=== PATIENT | male | born 1975 | race Caucasian/White ===

== ENCOUNTER → 2019-04-10 09:50 | Outpatient (BNVA) | payer MEDICAID, SELFPAY | PROVIDERS: Family Provider Family Medicine; PCP Family Medicine; Visit Provider Nurse Practitioner | DX: F25.1 Schizoaffective disorder, depressive type (principal) | CPT/HCPCS: 99213 ==

== ENCOUNTER → 2019-05-08 12:57 | Outpatient (BNVA) | payer MEDICAID, SELFPAY | PROVIDERS: Family Provider Family Medicine; PCP Family Medicine; Visit Provider Nurse Practitioner | DX: F25.1 Schizoaffective disorder, depressive type (principal) | CPT/HCPCS: 96372; 99213 ==

== ENCOUNTER 2019-05-20 12:21 | Day surgery (SDC) | payer MEDICAID, SELFPAY ==
[2019-05-17 17:46] VITALS: BMI 31.8
[2019-05-20] VITALS (15 sets, daily range): BP systolic 113–169; BP diastolic 68–90; PULSE 60–80; RESP 12–20; TEMP 36.3–36.6; O2SAT 95–100
--- NOTE | 2019-05-20 12:29 | W.PM.OPSUD ---
Surgery/Procedure H&P Update DATE OF PROCEDURE: May 20, 2019 DATE H&P PERFORMED: 05/13/19 H&P UPDATE INFORMATION: I have reviewed H&P completed within last 30 days, I have examined patient prior to procedure and No changes to prior documentation PREOP DIAGNOSIS: Symptomatic umbilical hernia PRIMARY INDICATION FOR PROCEDURE: The same PLANNED PROCEDURE: Operation Date: 05/20/19 13:20 Proposed Procedures p OPEN UMBILICAL HERNIA REPAIR WITH MESH PLACEMENT 46488/K42.9(Not Applicable) - Osman Gutiérrez MD
[2019-05-20 12:39] LABS: Glucose Point of Care 127 mg/dL (70-110)
[2019-05-20] MEDS: sodium chloride 0.9% 1,000 ML 30 ML IV (12:41)
--- NOTE | 2019-05-20 12:45 | ANES.PREANE2 ---
Pre-Anesthetic Assessment Pre-Anesthetic Assessment: Height/Weight: Height 1.78 m Weight 100.698 kg Temp Pulse Resp BP Pulse Ox 97.3 F L 80 16 169/90 96 05/20/19 12:28 05/20/19 12:28 05/20/19 12:28 05/20/19 12:28 05/20/19 12:28 Preop Diagnosis: Symptomatic umbilical hernia Proposed Procedure: Operation Date: 05/20/19 13:20 Proposed Procedures p OPEN UMBILICAL HERNIA REPAIR WITH MESH PLACEMENT 43424/K42.9(Not Applicable) - Osman Gutiérrez MD Familial anesthetic complications: None Was Beta Fei taken within 24 hours: N/A Last intake: Intake black coffee at 0600 Last Liquid Date 05/20/19 Last Liquid Time 06:00 Last Solid Date 05/19/19 Last Solid Time 00:00 Social: Social History: Tobacco (1 ppd) and No alcohol Exam: Pre-Anes Outpt Exam: alert, oriented x 3, clear to auscultation bilaterally and regular rate & rhythm Airway: Cervical ROM: WNL and Other (pinched nerve) MP: 3 Dentition: False Pulmonary: Pulmonary: COPD and Sleep apnea (does not wear cpap) CV/HEM: CV/HEM: Arrythmia (heart beat skips) and HTN : : None reported Hepatic: Hepatic: None reported GI: GI: None reported Metabolic: Metabolic: DM Musc/skel: Musc/skel: OA/DJD Neuropsych: Neuropsych: None reported Anesthetic Plan: ASA status: 2 Anesthesia: General Risk of > 500 ml blood loss (7ml/kg in children): No Meds/Allergies Current Medications: Current Medications Generic Name Dose Route Start Last Admin Trade Name Freq PRN Reason Stop Dose Admin Sodium Chloride 1,000 mls @ 30 ml s/hr 05/20/19 09:00 05/20/19 12:41 Sodium Chloride 0.9% IV 05/21/19 08:59 30 mls/hr .Q24H ALIYA Administration PFSH Anesthesia PFSH: Social History Smoking and tobacco status: current every day smoker cigarettes Packs smoked per day: 1 Smoking risk assessment/counseling performed?: Yes Tobacco counseling given: counseling >3 minutes Data Anesthesia Other Labs: Laboratory Results - last 48 hr 05/20/19 12:36 POC Glucose 127 Cardiac Studies: No Data to Display
[2019-05-20] MEDS: lidocaine 2% INJ 20 mL INJECTION (13:09)
--- NOTE | 2019-05-20 13:56 | P.OP_ITS ---
Operative Report Date of procedure: May 20, 2019 Pre-op Diagnosis: Symptomatic umbilical hernia Post-op diagnosis: same (Fascial defect less than 1 inch in diameter) Procedure Done: Open primary repair of umbilical hernia Specimens removed/disposition: Umbilical hernia sac and content Surgeon: Osman Gutiérrez Transportation Engineering Technician: Surgical milana Cohen Circulating nurse Radha Anesthesia: General (vending enterprises supervisor Astrid) Estimated blood loss (mL): 5 Complications: No immediate complications Condition: stable Disposition: same day Brief History: This is a pleasant 43 years old gentleman referred to my office with symptomatic umbilical hernia, patient has been having some issues with the hernia in the form of abdominal discomfort and has been interfering with his daily life activity, after further evaluation and obtaining history and physical examination, I did group therapy counselor the patient for open umbilical hernia repair with possible mesh placement Patient agreed to proceed and informed consent per chart Procedure: Patient was identified in holding area and the site of the hernia was marked by me ,Patient was brought then to the operating room, general endotracheal anesthesia was administered by the anesthesia provider.prophylactic IV antibiotics were given per protocol Timeout was done verifying the patient's name/date of /planned procedure and destination after the procedure, all were in agreement. SCDs confirmed to be functioning, preoperative antibiotics administered per protocol, and beta jhonny protocol was confirmed. Prep and drape of the abdomen was done under the usual sterile technique. I started by infraumbilical skin incision, I was able to identify the umbilical hernia after dissection, which showed after opening the hernia sac of viable omentum yet adherent to the sac, that was freed and excised and hemostat was applied and transfixing 2-0 silk was placed, tissues of the hernial sac and omental contents were sent for pathology. At that point the fascial defect is about inch in diameter, after freeing all the adhesions, under direct visualization I was able to use #1 PDS to repair the defect primarily Under direct visualizetion as an interrupted horizontal mattress sutures, irrigation of the wound was then achieved and hemostasis. 2-0 Vicryl was used to attach the umbilicus to the underlying fascia, followed by deep dermal interrupted stitches, 4-0 Monocryl was used for subcuticular closure of the skin incision. Lidocaine 2% was used for local infiltration to help postoperative pain Surgical Glue was then applied.Followed by dressing and abdominal binder Counts of sponges,[place] and instruments were completed at the end of the procedure Patient tolerated the procedure well and was taken to the recovery area in stable condition I was present for the whole entire procedure
[2019-05-20] MEDS: fentaNYL 50 mcg/mL INJ 2mL IVP ×2 (14:15→14:20)
[2019-05-20] MEDS: morphine 4 mg/mL SDV 1 mL 2 MG IVP ×2 (14:21→14:23)
--- NOTE | 2019-05-20 14:26 | SUR.PHASEI ---
1412- ORAL AIRWAY OUT, SIMPLE MASK AT 6LPM, SAT 99%
[2019-05-20] MEDS: oxyCODONE-APAP 5-325 mg Tablet 1 TAB PO (14:40)
--- NOTE | 2019-05-20 14:46 | SUR.PHASEI ---
1434- TRANSFERRED PATIENT FROM PACU TO OPS VIA GURNEY. RESP ARE EVEN AND NONLABORED. SAT 98% WITH 2L/NC. HE IS AWAKE AND ALERT, DROWSY. DRESSING TO ABDOMEN IS DRY AND INTACT. HE REPORTS ABDOMINAL PAIN IS PRESENT BUT IMPROVING. DENIES NAUSEA. ANESTHESIA AWARE OF LAST PAIN MEDICATION ADMINISTRATION.
--- NOTE | 2019-05-20 15:37 | SUR.PHASEII ---
1500 CHRISTIAN CALLED AND STATED SHE HAS HER DAUGHTER AT PEDIATRIC CLINIC AND WILL BE HERE SOON POSSIBLE,INFORMED PT AND VERBALIZED UNDERSTANDING
--- NOTE | 2019-05-20 16:07 | SUR.PHASEII ---
0931 D/C PAPERS SIGNED AND VERBALIZED UNDERSTANDING,AWAITING FOR TO COME BACK TO STRAIGHTENING PRESS OPERATOR HELPER PATIENT
== END 2019-05-20 16:45 | disposition home or self-care (01) ==
PROVIDERS: Family Provider Family Medicine; Visit Provider Surgery
PROC: (CPT 49585; principal; 2019-05-20 12:30)
DX: K42.9 Umbilical hernia without obstruction or gangrene (principal); J44.9 Chronic obstructive pulmonary disease, unspecified; G47.30 Sleep apnea, unspecified; I10 Essential (primary) hypertension; E11.9 Type 2 diabetes mellitus without complications; M19.90 Unspecified osteoarthritis, unspecified site; F17.210 Nicotine dependence, cigarettes, uncomplicated; Z79.84 Long term (current) use of oral hypoglycemic drugs; Z82.49 Family history of ischemic heart disease and other diseases of the circulatory system
CPT/HCPCS: 49585; 12345; 36416; 82962; 88302; 96365; J0131; J0690; J2001; J2250; J2270; J2704; J2710; J3010; J3490; J7030

== ENCOUNTER → 2019-06-05 14:21 | Outpatient (BNVA) | payer MEDICAID, SELFPAY | PROVIDERS: Family Provider Family Medicine; Visit Provider Nurse Practitioner | DX: F25.1 Schizoaffective disorder, depressive type (principal) | CPT/HCPCS: 99213 ==

== ENCOUNTER 2019-06-27 17:21 | Emergency (ER) | payer MEDICAID, SELFPAY ==
[2019-06-27 17:42] VITALS: BP 131/89; PULSE 90; RESP 18; TEMP 36.6; O2SAT 95; BMI 32.1
--- NOTE | 2019-06-27 18:03 | XR_ITS ---
WS: [id number] HAND LEFT TECHNIQUE: 3 views of the left hand CLINICAL INFORMATION: trauma COMPARISON: None. FINDINGS: Soft tissue edema. Fifth metacarpal appears normal. Normal MCP joint. Metacarpal heads are normal in appearance. Normal PIP and DIP joints. No evidence of acute fracture or dislocation. Radiocarpal joint: Normal. Carpal bones: Normal. XR/XR hand LT min 3V* 70401 IMPRESSION: Soft tissue edema. Fifth metacarpal appears normal. No acute fractures.
--- NOTE | 2019-06-27 18:04 | ED_ITS ---
HPI - Extremity Injury (Upper) General: Chief Complaint: Extremity Injury, Upper Stated Complaint: LEFT HAND PAIN Time Seen by Provider: 06/27/19 18:00 Source: patient Mode of arrival: ambulatory Limitations: no limitations History of Present Illness: HPI narrative: reports he punched a refrigerator last night complaint: injury to: left Onset (ago): day(s) Other Extremity Injury: Left: hand Other injuries: none Place: home Severity: moderate Relieving factors: none Exacerbating factors: movement of extremity Context: direct blow Associated symptoms: Reports no associated symptoms Review of Systems Musc: Reports: extremity pain (L hand) and extremity swelling (L hand) Neuro: Denies: numbness in extremities or changes in sensation PFSH ED PFSH: Social History Smoking and tobacco status: current every day smoker cigarettes Packs smoked per day: 1 Smoking risk assessment/counseling performed?: Yes Tobacco counseling given: counseling >3 minutes Physical Exam Const: COMMON NORMALS: no apparent distress, oriented x3, no limitations and alert NUTRITIONAL APPEARANCE: obese Extremity: OTHER: tenderness and swelling to dorsum of L hand specifically over 4-5 MCP joints; maintains ROM of digits; sensory intact; cap refill intact Neuro: COMMON NORMALS: oriented x3 SENSORIUM/ORIENTATION: Yes alert Skin: COMMON NORMALS: no rashes or lesions noted GENERAL SKIN EXAM: no rashes or lesions noted OTHER: no abrasions/lacerations noted Course Vital Signs: Vital signs: Vital Signs Temperature 97.9 F 06/27/19 17:42 Pulse Rate 90 06/27/19 17:42 Respiratory Rate 18 06/27/19 17:42 Blood Pressure 131/89 06/27/19 17:42 Pulse Oximetry 95 06/27/19 17:42 MDM - Extremity Injury (Upper) Imaging Data^: L hand XR: Radiologist's impression: [address] [address] XRay Report Signed Patient: Luzma Davison Unit #: [id number] : 06/11/1931 Age/Sex: 88 / F ADM Date: 06/26/19 Loc: ER Room/Bed: Attending Dr: Ordering Provider/Ordering MD: Alice Perez Date of Service: 06/26/19 Procedure(s): XR chest 1V portable 59531 Accession Number(s): [id number] Report Number: [id number] WS: [id number] CHEST XRAY TECHNIQUE: Portable chest. CLINICAL INFORMATION: cough/congestion COMPARISON: July 30, 2015 FINDINGS: Heart: Cardiomegaly. Aortic calcification. Aortic root graft Lungs: Moderate chronic emphysematous changes. No acute pulmonary infiltrates. No focal pneumonia. Bones: Normal visualized bony structures. XR/XR chest 1V portable [id number] IMPRESSION: No acute chest findings Dictated By: Christian Davis MD Signed By: Christian Davis MD Signed Date/Time: 06/27/19912 DD/ 3 Discharge Plan Discharge Patient Disposition: Home, Self-Care Clinical Impression: Contusion of hand, left Qualifiers: Encounter type: initial encounter Qualified Code(s): S60.222A - Contusion of left hand, initial encounter Condition: Stable Prescriptions: No Action losartan 25 mg tablet 25 mg PO DAILY RF: 0 metformin 500 mg tablet 500 mg PO DAILY RF: 0 omeprazole 20 mg capsule,delayed release(DR/EC) 20 mg PO DAILY RF: 0 Invega Sustenna 234 mg/1.5 mL syringe 234 mg IM Q30D Qty: 1.5 RF: 2 diazepam [Valium] 5 mg tablet 5 mg PO DAILY PRN (Reason: anxiety) Qty: 30 RF: 2 testosterone undecanoate 750 mg/3 mL (250 mg/mL) Solution See Rx Instructions .ROUTE .COMPLEX RF: 0 Invega 3 mg tablet extended release 24hr 3 mg PO DAILY RF: 0 Discharge Orders: Discharge Order (Routine); Ordered 06/27/19 Ordered By: Alice Perez Referrals: Rebekah Rojas DO [Family Provider] - Discharge Diet: Usual diet Discharge Activity: Increase activity as tolerated Patient Instructions: Contusion in Adults (ED), RICE Therapy (ED) Coding Level of Care Code ED Linux [employer] Systems Administrator for Chg Fwd Exam Expanded Problem Focused
--- NOTE | 2019-06-27 19:06 | PC.NURSE ---
report received from SAMANTA Soler and care transferred to SAMANTA Sams
== END 2019-06-27 19:10 | disposition home or self-care (01) ==
PROVIDERS: Emergency Provider Physician Assistant; Family Provider Family Medicine
DX: S60.222A Contusion of left hand, initial encounter (principal); W22.8XXA Striking against or struck by other objects, initial encounter; F17.200 Nicotine dependence, unspecified, uncomplicated; F25.1 Schizoaffective disorder, depressive type
CPT/HCPCS: 12345; 73130; 99281; 99282

== ENCOUNTER → 2019-07-03 08:43 | Outpatient (BNVA) | payer MEDICAID, SELFPAY | PROVIDERS: Family Provider Family Medicine; Visit Provider Nurse Practitioner | DX: F25.1 Schizoaffective disorder, depressive type (principal) | CPT/HCPCS: 99213 ==

== ENCOUNTER → 2019-08-02 07:44 | Outpatient (BNVA) | payer MEDICAID, SELFPAY | PROVIDERS: Family Provider Family Medicine; Visit Provider Nurse Practitioner | DX: F25.1 Schizoaffective disorder, depressive type (principal) | CPT/HCPCS: 99213 ==

== ENCOUNTER → 2019-08-28 07:57 | Outpatient (BNVA) | payer MEDICAID, SELFPAY | PROVIDERS: Family Provider Family Medicine; Visit Provider Nurse Practitioner | DX: F25.1 Schizoaffective disorder, depressive type (principal); F41.1 Generalized anxiety disorder; F43.12 Post-traumatic stress disorder, chronic | CPT/HCPCS: 99213 ==

== ENCOUNTER → 2019-09-27 12:51 | Outpatient (BNVA) | payer MEDICAID, SELFPAY | PROVIDERS: Family Provider Family Medicine; Visit Provider Nurse Practitioner | DX: F25.1 Schizoaffective disorder, depressive type (principal); F33.42 Major depressive disorder, recurrent, in full remission | CPT/HCPCS: 99214 ==

== ENCOUNTER 2019-10-22 20:55 | Emergency (ER) | payer MEDICAID, SELFPAY ==
[2019-10-22 21:18] VITALS: BP 141/80; PULSE 68; RESP 18; TEMP 36.6; O2SAT 97; BMI 33.0
[2019-10-22 22:41] LABS: Basophils # 0.1 10^3/uL (0.0-0.1); Basophils % 0.9 %; Eosinophils # 0.4 10^3/uL (0.0-0.8); Eosinophils % 3.6 %; Hematocrit 44.7 % (42.0-52.0); Hemoglobin 14.7 g/dL (11.7-16.6); Lymphocytes # 3.1 10^3/uL (0.8-4.8); Lymphocytes % 31.4 %; Mean Corpuscular HGB Conc 32.9 g/dL (30.0-36.0); Mean Corpuscular Hemoglobin 28.5 pg (28.0-34.0); Mean Corpuscular Volume 86.6 fL (80-94); Mean Platelet Volume 10.8 fL (7.4-10.4); Monocytes # 1.3 10^3/uL (0.2-0.9); Monocytes % 12.9 %; Neutrophils # 5.09 10^3/uL (1.8-7.7); Neutrophils % 50.8 %; Nucleated Red Blood Cells % 0 %; Platelet Count 364 10^3/cmm (130-400); Red Blood Count 5.16 10^6/uL (4.1-5.3); Red Cell Distribution Width 12.9 % (12.1-15.1)
--- NOTE | 2019-10-22 22:42 | W.ED.GENADLT ---
HPI - General Adult General: Chief complaint: General Medical Stated complaint: diabetic/feet problems Time Seen by Provider: 10/22/19 21:59 History of Present Illness: HPI narrative: Patient is a 43-year-old male who comes to the ED with rash on bottom of feet bilaterally and lower back pain. The rash on the bottom of his feet started yesterday. Patient says he was washing his feet in the tub and skin started peeling off. He reports that the skin there is little tender. Lower back pain started 3 to 4 days ago when patient thought he might be getting a kidney infection. He went to his PCP 2 days ago and they tested his urine and said he did not have a UTI. He describes pain is in the left lumbar region and he denies any pain radiating down his lower extremities. Back pain worsens with movement. Patient also endorses having some mild dysuria but denies any blood in the urine. Denies fever, chills, abdominal pain, nausea/vomiting, bowel symptoms, acute trauma or injury causing back pain. Associated symptoms: Reports rash (Skin peeling of bottom of both right and left feet.); Deny chest pain, dyspnea, headache(s), nausea, palpitations or vomiting Review of Systems Const: Denies: fever(s), chills or fatigue Eyes: Denies: change in vision or eye discomfort ENMT: Denies: throat pain, odynophagia, nasal discharge or nasal congestion Card: Denies: chest pain, palpitations, edema, swelling of feet/ankles, dyspnea on exertion or orthopnea Resp: Denies: dyspnea, productive cough or non-productive cough GI: Denies: abdominal pain, nausea, vomiting, diarrhea, constipation or hematochezia : Reports: dysuria (Mild pain when urinating.); Denies: flank pain, difficulty urinating or hematuria Musc: Reports: back pain; Denies: neck pain or extremity swelling Skin/Breast: Reports: rash (Skin peeling of bottom of both right and left feet.); Denies: new lesions Neuro: Denies: headache(s), numbness in extremities or weakness in extremities [facility] ED PFSH: Medical History Hernia Schizoaffective disorder, depressive type Surgical History History of surgery on right wrist Umbilical hernia Family History Mother CAD (coronary artery disease) Hypertension Denies family history of Anesthesia complication Bleeding disorder Social History Smoking and tobacco status: current every day smoker cigarettes Packs smoked per day: 1 Smoking risk assessment/counseling performed?: Yes Tobacco counseling given: counseling >3 minutes Physical Exam Const: COMMON NORMALS: no acute distress, patient oriented x3 and alert GENERAL APPEARANCE: cooperative and comfortable HENMT: COMMON NORMALS: normocephalic HEAD & SCALP: normocephalic MOUTH: Normal oral and palatal mucosa present THROAT: posterior oropharynx normal and uvula midline Eye: COMMON NORMALS: Equal, round and reactive pupils present PUPIL: Yes Equal, round and reactive pupils present Neck/C-Spine: COMMON NORMALS: supple GENERAL: Yes normal visual inspection Resp: COMMON NORMALS: normal respiratory effort, No retractions, No use of accessory muscles and clear to auscultation bilaterally AUSCULTATION: clear to auscultation bilaterally Cardio: COMMON NORMALS: regular rate, regular rhythm, S1 normal heart sound present, S2 normal heart sound present, No gallops present (Cardio), No clicks present (Cardio), No murmurs present (Cardio) and Peripheral pulses 2+ throughout RATE: regular rate RHYTHM: regular rhythm HEART SOUNDS: S1 normal heart sound present and S2 normal heart sound present PERIPHERAL PULSES: Peripheral pulses 2+ throughout GI: COMMON NORMALS: Normal to inspection, nondistended, normoactive bowel sounds present, Soft to palpation, non-tender and no masses PALPATION: Yes Soft to palpation : COMMON NORMALS: Yes no CVA tenderness BLADDER/KIDNEY EXAM: Yes no CVA tenderness Back/Pelvis: COMMON NORMALS: no CVA tenderness LUMBAR SPINE/LOWER BACK: No lumbar spinal tenderness and Yes paraspinal muscle tenderness Lumbar paraspinal muscle tenderness: left Extremity: COMMON NORMALS: no pedal edema NARRATIVE EXTREMITY EXAM: Patient has a layer of skin that peeled off the bottom of his feet bilaterally. GENERAL: Yes normal exam except as noted Neuro: COMMON NORMALS: patient oriented x3 and moves all extremities SENSORIUM/ORIENTATION: Yes alert Skin: NARRATIVE SKIN EXAM: Plantar aspect of both right and left feet?top layer of no erythema, warmth or drainage seen around rash. No concern for infection. Course Vital Signs: Vital signs: Vital Signs Temperature 97.9 F 10/22/19 21:18 Pulse Rate 68 10/22/19 21:18 Respiratory Rate 18 10/22/19 21:18 Blood Pressure 141/80 10/22/19 21:18 Pulse Oximetry 97 10/22/19 21:18 MDM - General Adult MDM Narrative: Medical decision making narrative: Patient is a 43-year-old male comes to the ED with nontraumatic lower back pain. Physical exam findings show lumbar paracervical muscle tenderness that is localized. No pain radiating down the legs. Patient also has some superficial peeling of skin on the bottom of both feet bilaterally. No signs of infection seen on exam. CBC, CMP and UA were unremarkable. Patient diagnosed with lower back pain and given a dose of Toradol and Norflex while here in the ED. Patient was sent home with a prescription for Robaxin and told to take [id number] Tylenol for pain. Follow-up with PCP in 7 to 10 days for reevaluation. Return to ED precautions given. Patient understood and agreed with plan. Lab Data: Attestation: I reviewed the patient's lab results. Labs: Lab Results 10/22/19 10/22/19 10/22/19 Range/Units 22:25 22:25 22:45 WBC 10.0 (4.0-10.0) 10^3/ uL RBC 5.16 (4.1-5.3) 10^6/u L Hgb 14.7 (11.7-16.6) g/dL Hct 44.7 (42.0-52.0) % MCV 86.6 (80-94) fL MCH 28.5 (28.0-34.0) pg MCHC 32.9 (30.0-36.0) g/dL RDW 12.9 (12.1-15.1) % Plt Count 364 (130-400) 10^3/c mm MPV 10.8 H (7.4-10.4) fL Neut % (Auto) 50.8 % Lymph % (Auto) 31.4 % Dickson % (Auto) 12.9 % Eos % (Auto) 3.6 % Baso % (Auto) 0.9 % Neut # (Auto) 5.09 (1.8-7.7) 10^3/u L Lymph # (Auto) 3.1 (0.8-4.8) 10^3/u L Dickson # (Auto) 1.3 H (0.2-0.9) 10^3/u L Eos # (Auto) 0.4 (0.0-0.8) 10^3/u L Baso # (Auto) 0.1 (0.0-0.1) 10^3/u L Nucleated RBC % (a uto) 0 % Nucleated RBCs # 0.0 /100WBC Sodium 136 (136-145) mmol/L Potassium 4.3 (3.5-5.1) mmol/L Chloride 98 (98-107) mmol/L Carbon Dioxide 29 (22-29) mmol/L Anion Gap 13.3 (5-19) BUN 8 (6-20) mg/dL Creatinine 0.9 (0.7-1.2) mg/dL GFR Calculation 91.3 (90-130) mL/min Glucose 102 (65-115) mg/dL Calculated Osmolal ity 278 L (285-295) mOsm/k g Calcium 8.7 (8.5-10.5) mg/dL Total Bilirubin 0.2 (0.15-1.2) mg/dL AST 70 H (0-40) U/L ALT 51 H (0-41) U/L Alkaline Phosphata se 102 (40-130) IU/L Total Protein 7.0 (6.6-8.7) g/dL Albumin 3.9 (3.5-5.2) g/dL Globulin 3.1 (1.3-4.6) g/dL Urine Color Dauphin (Yellow) Urine Appearance Clear (CLEAR) Urine pH TNP Ur Specific Gravit y TNP Urine Protein TNP Urine Glucose (UA) TNP Urine Ketones TNP Urine Blood TNP Urine Nitrate TNP Urine Bilirubin TNP Urine Urobilinogen TNP Ur Leukocyte Pamela ase TNP Urine RBC Rare (0-2) /hpf Urine WBC Rare (0-5) /hpf Ur Squamous Epith Cells 0-4 H (0-5) Amorphous Sediment Not Reportable Urine Bacteria Trace (NONE) Discharge Plan Discharge Patient Disposition: Home Clinical Impression: Lumbar back pain, Peeling skin Condition: Stable Prescriptions: New Robaxin-750 750 mg tablet 750 mg PO Q8H Qty: 20 RF: 0 No Action losartan 25 mg tablet 25 mg PO DAILY RF: 0 metformin 500 mg tablet 500 mg PO DAILY RF: 0 omeprazole 20 mg capsule,delayed release(DR/EC) 20 mg PO DAILY RF: 0 Invega Sustenna 234 mg/1.5 mL syringe 234 mg IM Q30D Qty: 1.5 RF: 2 Invega 3 mg tablet extended release 24hr 3 mg PO DAILY Qty: 7 RF: 2 diazepam [Valium] 5 mg tablet 5 mg PO BID PRN (Reason: anxiety) Qty: 60 RF: 0 benztropine 1 mg tablet 1 mg PO BID PRN (Reason: EPS) Qty: 60 RF: 0 testosterone undecanoate 750 mg/3 mL (250 mg/mL) Solution See Rx Instructions .ROUTE .COMPLEX RF: 0 Discharge Orders: Discharge Order (Routine); Ordered 10/22/19 Ordered By: Roney Arceo Referrals: Rebekah Rojas DO [Primary Care Provider] - Discharge Diet: Regular Discharge Activity: Increase activity as tolerated Patient Instructions: Low Back Strain (ED), Acute Low Back Pain (ED) Activity Restrictions/Additional Instructions: Follow-up with medical provider as directed in 7-10 days. Take medications as prescribed. Take [id number] Tylenol for pain. Continue with a prescription for muscle relaxer. Take the muscle relaxer at night before bed because it can cause drowsiness. If you take muscle relaxer during the day use with caution due to potential drowsiness. Apply cold pack or heat to lower back to help with symptoms. Stretch lower back out daily. Watch bottom of the feet rash for any signs of potential infection such as redness, warmth, swelling or drainage. If you start developing these symptoms around rash on feet return to ED/PCP to be reevaluated. Return to the ER or your medical provider if condition worsens. Please read and understand discharge instructions. If any questions, please ask. Discharge Date/Time: 10/22/19 23:57 Coding Level of Care Code ED Claims Adjuster Supervisor for Dai Fwd Exam Comprehensive
[2019-10-22 22:57] LABS: Alanine Aminotransferase 51 U/L (0-41); Albumin Level 3.9 g/dL (3.5-5.2); Alkaline Phosphatase 102 IU/L (40-130); Anion Gap 13.3 (5-19); Aspartate Amino Transferase 70 U/L (0-40); Blood Urea Nitrogen 8 mg/dL (6-20); Calcium 8.7 mg/dL (8.5-10.5); Carbon Dioxide 29 mmol/L (22-29); Chloride 98 mmol/L (98-107); Globulin 3.1 g/dL (1.3-4.6); Glomerular Filtration Rate 91.3 mL/min (90-130); Glucose 102 mg/dL (65-115); Osmolality Calculated 278 mOsm/kg (285-295); Potassium 4.3 mmol/L (3.5-5.1); Sodium 136 mmol/L (136-145); Total Bilirubin 0.2 mg/dL (0.15-1.2)
[2019-10-22 23:15] LABS: Urine Appearance Clear (CLEAR); Urine Color Orange (Yellow)
[2019-10-22 23:16] LABS: Add Urine Microscopic? YES; Bacteria Urine TRACE; RBC Urine RARE /hpf (0-2); Squamous Epithelial Cell Urine 0-4 (0-5); WBC Urine RARE /hpf (0-5)
[2019-10-22] MEDS: orphenadrine 30 mg/mL Inj 2 mL 60 MG IM (23:29)
[2019-10-22] MEDS: ketorolac 60 mg/2 mL INJ IM (23:29)
== END 2019-10-22 23:57 | disposition home or self-care (01) ==
PROVIDERS: Emergency Provider Physician Assistant; PCP Family Medicine
DX: M54.5 Low back pain (principal); L98.9 Disorder of the skin and subcutaneous tissue, unspecified; F17.210 Nicotine dependence, cigarettes, uncomplicated
CPT/HCPCS: 12345; 36415; 80053; 81001; 85025; 87040; 96372; 99281; 99283; J1885; J2360

== ENCOUNTER → 2019-10-25 09:20 | Outpatient (BNVA) | payer MEDICAID, SELFPAY | PROVIDERS: PCP Family Medicine; Visit Provider Nurse Practitioner | DX: F25.1 Schizoaffective disorder, depressive type (principal) | CPT/HCPCS: 96372; 99214 ==

== ENCOUNTER → 2019-10-28 10:01 | Outpatient (BNVA) | payer MEDICAID, SELFPAY | PROVIDERS: PCP Family Medicine; Visit Provider Family Medicine | DX: I10 Essential (primary) hypertension (principal); E11.9 Type 2 diabetes mellitus without complications; R79.89 Other specified abnormal findings of blood chemistry; M54.5 Low back pain | CPT/HCPCS: 80053; 80061; 82043; 83036; 84403; 85025 ==

== ENCOUNTER → 2019-11-22 08:44 | Outpatient (BNVA) | payer MEDICAID, SELFPAY | PROVIDERS: PCP Family Medicine; Visit Provider Nurse Practitioner | DX: F25.1 Schizoaffective disorder, depressive type (principal); Z79.899 Other long term (current) drug therapy | CPT/HCPCS: 96372; 99213 ==

== ENCOUNTER → 2019-12-20 08:13 | Outpatient (BNVA) | payer MEDICAID, SELFPAY | PROVIDERS: PCP Family Medicine; Visit Provider Nurse Practitioner | DX: F25.1 Schizoaffective disorder, depressive type (principal) | CPT/HCPCS: 96372; 99213 ==

== ENCOUNTER → 2020-01-24 12:09 | Outpatient (BNVA) | payer MEDICAID, SELFPAY | PROVIDERS: PCP Family Medicine; Visit Provider Nurse Practitioner | DX: F25.1 Schizoaffective disorder, depressive type (principal) | CPT/HCPCS: 96372; 99213 ==

== ENCOUNTER → 2020-02-05 15:06 | Outpatient (BNVA) | payer MEDICAID, SELFPAY | PROVIDERS: PCP Family Medicine; Visit Provider Family Medicine | DX: Z20.2 Contact with and (suspected) exposure to infections with a predominantly sexual mode of transmission (principal) | CPT/HCPCS: 80074; 86592; 87806 ==

== ENCOUNTER → 2020-02-20 12:00 | Outpatient (BNVA) | payer MEDICAID, SELFPAY | PROVIDERS: PCP Family Medicine; Visit Provider Nurse Practitioner | DX: F25.1 Schizoaffective disorder, depressive type (principal); Z79.899 Other long term (current) drug therapy | CPT/HCPCS: 80306; 99214 ==

== ENCOUNTER → 2020-03-17 08:31 | Outpatient (BNVA) | payer MEDICAID, SELFPAY | PROVIDERS: PCP Family Medicine; Visit Provider Nurse Practitioner | DX: F25.1 Schizoaffective disorder, depressive type (principal); Z79.899 Other long term (current) drug therapy | CPT/HCPCS: 96372; 99214 ==

== ENCOUNTER → 2020-04-20 11:06 | Outpatient (BNVA) | payer MEDICAID, SELFPAY | PROVIDERS: PCP Family Medicine; Visit Provider Nurse Practitioner | DX: F25.1 Schizoaffective disorder, depressive type (principal); F33.1 Major depressive disorder, recurrent, moderate; F12.20 Cannabis dependence, uncomplicated; F15.21 Other stimulant dependence, in remission | CPT/HCPCS: 96372; 99214 ==

== ENCOUNTER → 2020-05-18 11:17 | Outpatient (BNVA) | payer MEDICAID, SELFPAY | PROVIDERS: PCP Family Medicine; Visit Provider Nurse Practitioner | DX: F25.1 Schizoaffective disorder, depressive type (principal); Z79.899 Other long term (current) drug therapy | CPT/HCPCS: 96372; 99214 ==

== ENCOUNTER → 2020-06-18 11:18 | Outpatient (BNVA) | payer MEDICAID, SELFPAY | PROVIDERS: PCP Family Medicine; Visit Provider Nurse Practitioner | DX: F25.1 Schizoaffective disorder, depressive type (principal); Z79.899 Other long term (current) drug therapy; F12.20 Cannabis dependence, uncomplicated | CPT/HCPCS: 96372; 99214 ==

== ENCOUNTER → 2020-07-17 11:31 | Outpatient (BNVA) | payer MEDICAID, SELFPAY | PROVIDERS: PCP Family Medicine; Visit Provider Nurse Practitioner | DX: F25.1 Schizoaffective disorder, depressive type (principal); F33.1 Major depressive disorder, recurrent, moderate; Z79.899 Other long term (current) drug therapy; F12.20 Cannabis dependence, uncomplicated; F15.21 Other stimulant dependence, in remission | CPT/HCPCS: 96372; 99214 ==

== ENCOUNTER → 2020-08-13 14:24 | Outpatient (BNVA) | payer MEDICAID, SELFPAY | PROVIDERS: PCP Family Medicine; Visit Provider Nurse Practitioner | DX: F25.1 Schizoaffective disorder, depressive type (principal); F33.1 Major depressive disorder, recurrent, moderate; F12.20 Cannabis dependence, uncomplicated; F15.21 Other stimulant dependence, in remission | CPT/HCPCS: 96372; 99214 ==

== ENCOUNTER → 2020-09-17 14:16 | Outpatient (BNVA) | payer MEDICAID, SELFPAY | PROVIDERS: PCP Family Medicine; Visit Provider Nurse Practitioner | DX: F25.1 Schizoaffective disorder, depressive type (principal); F33.1 Major depressive disorder, recurrent, moderate; F12.20 Cannabis dependence, uncomplicated; F15.21 Other stimulant dependence, in remission | CPT/HCPCS: 96372; 99214 ==

== ENCOUNTER → 2020-10-16 07:25 | Outpatient (BNVA) | payer MEDICAID, SELFPAY | PROVIDERS: PCP Family Medicine; Visit Provider Nurse Practitioner | DX: F25.1 Schizoaffective disorder, depressive type (principal) | CPT/HCPCS: 96372; 99214 ==

== ENCOUNTER → 2020-11-19 10:05 | Outpatient (BNVA) | payer MEDICAID, SELFPAY | PROVIDERS: PCP Family Medicine; Visit Provider Nurse Practitioner | DX: F33.1 Major depressive disorder, recurrent, moderate (principal); F25.1 Schizoaffective disorder, depressive type; F12.20 Cannabis dependence, uncomplicated | CPT/HCPCS: 96372; 99214 ==

== ENCOUNTER → 2020-12-18 11:18 | Outpatient (BNVA) | payer MEDICAID, SELFPAY | PROVIDERS: PCP Family Medicine; Visit Provider Nurse Practitioner | DX: F25.1 Schizoaffective disorder, depressive type (principal); F33.1 Major depressive disorder, recurrent, moderate; F15.21 Other stimulant dependence, in remission; F12.20 Cannabis dependence, uncomplicated; F17.219 Nicotine dependence, cigarettes, with unspecified nicotine-induced disorders | CPT/HCPCS: 96372; 99214 ==

== ENCOUNTER 2020-12-29 15:46 | Emergency (ER) | payer MEDICAID, SELFPAY ==
[2020-12-29 16:01] VITALS: BP 125/83; PULSE 79; RESP 18; TEMP 36.8; O2SAT 99
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
[2020-12-29] MEDS: HYDROcodone-acetaminophen 5-325 mg Tablet 2 TAB PO (20:45)
[2020-12-29 21:39] VITALS: BP 151/71; PULSE 77; RESP 20; O2SAT 98
== END 2020-12-29 21:35 | disposition home or self-care (01) ==
PROVIDERS: Emergency Provider Emergency Medicine; PCP Family Medicine
DX: F07.81 Postconcussional syndrome (principal); S02.30XA Fracture of orbital floor, unspecified side, initial encounter for closed fracture; S02.2XXA Fracture of nasal bones, initial encounter for closed fracture; T14.8XXA Other injury of unspecified body region, initial encounter; Y09 Assault by unspecified means; I10 Essential (primary) hypertension; F17.210 Nicotine dependence, cigarettes, uncomplicated
CPT/HCPCS: 99282

== ENCOUNTER → 2021-01-27 10:23 | Outpatient (BNVA) | payer MEDICAID, SELFPAY | PROVIDERS: PCP Family Medicine; Visit Provider Nurse Practitioner | DX: F25.1 Schizoaffective disorder, depressive type (principal) | CPT/HCPCS: 96372; 99214 ==

== ENCOUNTER → 2021-02-22 13:21 | Outpatient (BNVA) | payer MEDICAID, SELFPAY | PROVIDERS: PCP Family Medicine; Visit Provider Nurse Practitioner | DX: F25.1 Schizoaffective disorder, depressive type (principal); F12.20 Cannabis dependence, uncomplicated | CPT/HCPCS: 96372; 99214 ==

== ENCOUNTER → 2021-03-22 11:47 | Outpatient (BNVA) | payer MEDICAID, SELFPAY | PROVIDERS: PCP Family Medicine; Visit Provider Nurse Practitioner | DX: F25.1 Schizoaffective disorder, depressive type (principal); F12.20 Cannabis dependence, uncomplicated | CPT/HCPCS: 96372; 99214 ==

== ENCOUNTER → 2021-04-14 10:55 | Outpatient (BNVA) | payer MEDICAID, SELFPAY | PROVIDERS: PCP Family Medicine; Visit Provider Nurse Practitioner Family | DX: E11.9 Type 2 diabetes mellitus without complications (principal) | CPT/HCPCS: 80053; 83036; 84443 ==

== ENCOUNTER → 2021-04-20 12:02 | Outpatient (BNVA) | payer MEDICAID, SELFPAY | PROVIDERS: PCP Family Medicine; Visit Provider Nurse Practitioner | DX: F12.20 Cannabis dependence, uncomplicated (principal); F25.1 Schizoaffective disorder, depressive type | CPT/HCPCS: 96372; 99214 ==

== ENCOUNTER → 2021-05-18 11:47 | Outpatient (BNVA) | payer MEDICAID, SELFPAY | PROVIDERS: PCP Family Medicine; Visit Provider Nurse Practitioner | DX: F12.20 Cannabis dependence, uncomplicated (principal); F15.20 Other stimulant dependence, uncomplicated; F11.20 Opioid dependence, uncomplicated; F25.1 Schizoaffective disorder, depressive type | CPT/HCPCS: 96372; 99215 ==

== ENCOUNTER → 2021-06-07 15:57 | Outpatient (BNVA) | payer MEDICAID, SELFPAY | PROVIDERS: PCP Family Medicine; Visit Provider Nurse Practitioner Family | DX: E23.7 Disorder of pituitary gland, unspecified (principal); R53.83 Other fatigue; I10 Essential (primary) hypertension; F25.1 Schizoaffective disorder, depressive type; Z72.0 Tobacco use; Z71.6 Tobacco abuse counseling | CPT/HCPCS: 82607; 82728; 82746; 83001; 83002; 83550; 84146; 84403 ==

== ENCOUNTER → 2021-06-18 11:05 | Outpatient (BNVA) | payer MEDICAID, SELFPAY | PROVIDERS: PCP Family Medicine; Visit Provider Nurse Practitioner | DX: F11.20 Opioid dependence, uncomplicated (principal); F15.20 Other stimulant dependence, uncomplicated; F25.1 Schizoaffective disorder, depressive type | CPT/HCPCS: 96372; 99214 ==

== ENCOUNTER 2021-12-31 16:53 | Emergency (ER) | payer MEDICAID, SELFPAY ==
--- NOTE | 2021-12-31 16:54 | XRR_ITS ---
PROCEDURE INFORMATION: Exam: XR Right Elbow Exam date and time: 12/31/2021 5:10 PM Age: 46 years old Clinical indication: Pain; Swelling; Elbow; Right; Additional info: Swelling, pain TECHNIQUE: Imaging protocol: Radiologic exam of the Right elbow. Views: 3 or more views. COMPARISON: No relevant prior studies available. FINDINGS: Bones/joints: There is a prominent enthesophyte at the olecranon at the triceps insertion which appears fractured, age indeterminate. The rest of the osseous structures are intact. Soft tissues: Soft tissue swelling superficial to the olecranon. XR/XR elbow RT min 3V* [id number] IMPRESSION: There is a prominent enthesophyte at the olecranon which appears fractured, age indeterminate. There is soft tissue swelling superficial to the olecranon. This could be secondary to the fractured enthesophyte or may reflect olecranon bursitis.
[2021-12-31 17:31] VITALS: BP 134/83; PULSE 69; RESP 18; TEMP 36.8; O2SAT 93; BMI 38.0
--- NOTE | 2021-12-31 17:53 | W.ED.EXTPRO ---
HPI - Extremity Problem General: Chief complaint: Extremity Problem,Nontraumatic Stated complaint: right elbow swelling Time Seen by Provider: 12/31/21 17:38 History of Present Illness: Patient is a 46-year-old male who comes to the ED with right elbow swelling. Symptoms started today. He denies any injury or trauma to cause swelling. He has full range of motion in right elbow but does endorse some aching pain that he rates currently a 5 out of 10. Patient does report that he had an injury several years ago where he dislocated and fractured right elbow. Associated symptoms: Deny chest pain, fever(s) or rash Review of Systems Const: Denies: fever(s), chills or fatigue Eyes: Denies: change in vision or eye discomfort ENMT: Denies: throat pain, odynophagia, nasal discharge or nasal congestion Card: Denies: chest pain, palpitations, edema, swelling of feet/ankles, dyspnea on exertion or orthopnea Resp: Denies: dyspnea, productive cough or non-productive cough GI: Denies: abdominal pain, nausea, vomiting, diarrhea, constipation or hematochezia : Denies: flank pain, difficulty urinating, dysuria or hematuria Musc: Reports: extremity pain (Right elbow pain) and extremity swelling (Right elbow swelling); Denies: neck pain or back pain Skin/Breast: Denies: rash or new lesions Neuro: Denies: headache(s), numbness in extremities or weakness in extremities [facility] ED PFSH: Medical History Benzodiazepine use agreement exists Cannabis dependence, uncomplicated Essential (primary) hypertension Hernia Major depressive disorder, recurrent, moderate On high dose antipsychotic drug therapy Opioid dependence, uncomplicated Other stimulant dependence, in remission Other stimulant dependence, uncomplicated Pituitary abnormality Prediabetes Psychiatric care Schizoaffective disorder, depressive type Surgical History History of surgery on right wrist Umbilical hernia Family History Mother CAD (coronary artery disease) Hypertension Denies family history of Anesthesia complication Bleeding disorder Social History Smoking and tobacco status: current every day smoker cigarettes Packs smoked per day: 1 Smoking risk assessment/counseling performed?: Yes Tobacco counseling given: counseling >3 minutes Physical Exam Const: COMMON NORMALS: no acute distress, patient oriented x3 and alert GENERAL APPEARANCE: cooperative and comfortable HENMT: COMMON NORMALS: normocephalic HEAD & SCALP: normocephalic MOUTH: Normal oral and palatal mucosa present THROAT: posterior oropharynx normal and uvula midline Neck/C-Spine: COMMON NORMALS: supple GENERAL: Yes normal visual inspection Resp: COMMON NORMALS: normal respiratory effort, No retractions, No use of accessory muscles and clear to auscultation bilaterally AUSCULTATION: clear to auscultation bilaterally Cardio: COMMON NORMALS: regular rate, regular rhythm, S1 normal heart sound present, S2 normal heart sound present, No gallops present (Cardio), No clicks present (Cardio), No murmurs present (Cardio) and Peripheral pulses 2+ throughout RATE: regular rate RHYTHM: regular rhythm HEART SOUNDS: S1 normal heart sound present and S2 normal heart sound present PERIPHERAL PULSES: Peripheral pulses 2+ throughout GI: COMMON NORMALS: Normal to inspection, nondistended, normoactive bowel sounds present, Soft to palpation, non-tender and no masses PALPATION: Yes Soft to palpation : COMMON NORMALS: Yes no CVA tenderness BLADDER/KIDNEY EXAM: Yes no CVA tenderness Back/Pelvis: COMMON NORMALS: no CVA tenderness Extremity: RIGHT UPPER EXTREMITY: Yes elbow joint (Visible and palpable pocket of fluid over olecranon process.) Right elbow: Yes inspection, Yes palpation (Tenderness over olecranon process.), Yes ROM (Full range of motion), Yes neurovascular exam (Neurovascular intact.) and Yes other (No erythema or warmth noted.) Neuro: COMMON NORMALS: patient oriented x3 SENSORIUM/ORIENTATION: Yes alert GAIT: Yes Normal gait present Skin: GENERAL SKIN EXAM: dry skin Course Vital Signs: Vital signs: Vital Signs Temperature 98.2 F 12/31/21 17:31 Pulse Rate 69 12/31/21 17:31 Respiratory Rate 18 12/31/21 17:31 Blood Pressure 134/83 12/31/21 17:31 Pulse Oximetry 93 12/31/21 17:31 Oxygen Delivery Me thod 12/31/21 17:31 MDM - Extremity (Nontraumatic) Medical Decision Making Patient is a 46-year-old male who comes to the ED with right elbow swelling. Symptoms started today. He denies any injury or trauma to cause swelling. He has full range of motion in right elbow but does endorse some aching pain that he rates currently a 5 out of 10. Patient does report that he had an injury several years ago where he dislocated and fractured right elbow. Exam findings show right elbow with swollen fluid olecranon bursitis. No erythema or warmth noted. He had full range of motion of elbow. Elbow x-ray showed a enthesophyte at olecranon which is suggestive for age indeterminate fracture. Some superficial soft tissue swelling noted as well around olecranon which is suggestive for olecranon bursitis. Given patient's clinical history and no recent injury or trauma, but he does have a past fracture dislocation of right elbow I think the findings on x-ray are chronic and not acute. He was diagnosed with olecranon bursitis discharged home with a prescription for Celebrex for pain and inflammation. He was told to follow-up with his PCP within the next week for reevaluation to possibly get olecranon bursitis drained. Return ED precautions given. Patient understood and agreed with plan. Lab Data Radiology Impressions Elbow X-Ray 12/31/21 16:54 IMPRESSION: There is a prominent enthesophyte at the olecranon which appears fractured, age indeterminate. There is soft tissue swelling superficial to the olecranon. This could be secondary to the fractured enthesophyte or may reflect olecranon bursitis. Discharge Plan Discharge Patient Disposition: Home Clinical Impression: Bursitis of right elbow Qualifiers: Elbow bursitis location: olecranon bursitis Qualified Code(s): M70.21 - Olecranon bursitis, right elbow Condition: Stable Prescriptions: New Celebrex 100 mg capsule 100 mg PO BID PRN (Reason: pain) Qty: 20 0RF No Action Invega 3 mg tablet extended release 24hr 3 mg PO DAILY Qty: 7 1RF Rx Instructions: daily week prior to invega injection losartan 25 mg tablet 25 mg PO DAILY Qty: 90 3RF budesonide-formoterol [Symbicort] 160-4.5 mcg/actuation HFA aerosol inhaler 2 puff INHALATION Q12H Qty: 10.2 6RF albuterol sulfate [ProAir HFA] 90 mcg/actuation HFA aerosol inhaler 2 puff INHALATION QID PRN (Reason: shortness of breath or wheezing) Qty: 8.5 6RF metformin 500 mg tablet 500 mg PO DAILY Qty: 90 3RF omeprazole 20 mg capsule,delayed release(DR/EC) 20 mg PO DAILY Qty: 90 3RF Invega Sustenna 234 mg/1.5 mL syringe 234 mg IM Q30D Qty: 1.5 1RF bupropion HCl [Wellbutrin XL] 150 mg tablet extended release 24 hr 150 mg PO QAM Qty: 30 2RF ferrous gluconate 324 mg (37.5 mg iron) tablet 324 mg PO DAILY Qty: 30 3RF Discharge Orders: Discharge ED (Routine); Ordered 12/31/21 Ordered By: Roney Arceo Referrals: Rebekah Rojas DO [Primary Care Provider] - Discharge Diet: Regular Discharge Activity: Increase activity as tolerated Patient Instructions: Elbow Bursitis (ED) Activity Restrictions/Additional Instructions: Follow-up with medical provider as directed in the next 5 to 7 days for reevaluation. Take medications as prescribed. Apply cold pack on elbow for 15 minutes at a time multiple times throughout the day to help with swelling. Return to the ER or your medical provider if elbow swelling starts getting red, warm to the touch or limited range of motion in elbow. Please read and understand discharge instructions. Thank you for choosing [facility] for your healthcare needs today. Please realize this is an emergency room and that we are providing you with a medical screening exam and this may not be complete and all inclusive of all the testing and or work up that you may need to determine your ailment or severity of your illness. It is very important that you follow up as instructed or that you return to the Emergency Department should you have concerns or if your condition changes or worsens in any way. Coding Level of Care Code ED Mid Level Provider for Dai Arellano Exam Comprehensive
[2021-12-31] MEDS: ketorolac 60 mg/2 mL INJ IM (19:00)
== END 2021-12-31 20:17 | disposition home or self-care (01) ==
PROVIDERS: Emergency Provider Physician Assistant; PCP Family Medicine
DX: M70.21 Olecranon bursitis, right elbow (principal); Z79.84 Long term (current) use of oral hypoglycemic drugs; F17.210 Nicotine dependence, cigarettes, uncomplicated; I10 Essential (primary) hypertension
CPT/HCPCS: 73080; 96372; 99284; J1885

== ENCOUNTER 2022-02-12 09:07 | Emergency (ER) | payer MEDICAID, SELFPAY ==
[2022-02-12 09:16] VITALS: BP 139/77; PULSE 88; RESP 16; TEMP 37.6; O2SAT 95; BMI 31.1
[2022-02-12 09:37] VITALS: PULSE 89; O2SAT 97
--- NOTE | 2022-02-12 12:05 | W.ED.URI ---
HPI - URI/Sore Throat General: Chief Complaint: Upper Respiratory Infection Stated Complaint: coughing, sneezing, flu like symtoms Time Seen by Provider: 02/12/22 09:19 Source: patient Mode of arrival: ambulatory History of Present Illness: 46-year-old male presents emergency see room with cough and congestion. Body aches chills. Known exposure to influenza. Symptoms began overnight cough is nonproductive. MD elicited complaint: fever, cough, rhinorrhea and nasal congestion Onset (ago): hour(s) Consistency: constant Severity: moderate Description of mucous: clear and watery Exacerbating factors: nothing Relieving factors: nothing Associated symptoms: Reports congestion, cough, fever(s), headache(s), myalgias, nasal congestion, nausea and rhinorrhea; Deny abdominal pain, change in voice, chills, chest pain, diarrhea, epistaxis, ear or mastoid pain, rash, short of breath, sinus pain, stiffness or sore throat Treatments prior to arrival: none Review of Systems Const: Reports: fever(s), fatigue and malaise; Denies: chills ENMT: Reports: nasal congestion; Denies: throat pain, ear or mastoid pain, epistaxis or sinus pain Card: Denies: chest pain Resp: Reports: non-productive cough; Denies: dyspnea or productive cough GI: Reports: nausea; Denies: abdominal pain or diarrhea : Denies: flank pain, dysuria, urinary frequency or urinary urgency Skin/Breast: Denies: rash or pruritus Neuro: Reports: headache(s) [facility] ED PFSH: Medical History Benzodiazepine use agreement exists Cannabis dependence, uncomplicated Essential (primary) hypertension Hernia Major depressive disorder, recurrent, moderate On high dose antipsychotic drug therapy Opioid dependence, uncomplicated Other stimulant dependence, in remission Other stimulant dependence, uncomplicated Pituitary abnormality Prediabetes Psychiatric care Schizoaffective disorder, depressive type Surgical History History of surgery on right wrist Umbilical hernia Family History Mother CAD (coronary artery disease) Hypertension Denies family history of Anesthesia complication Bleeding disorder Social History (Reviewed 11/26/22 @ 12:07 by MADHU Cody Smoking and tobacco status: current every day smoker cigarettes Packs smoked per day: 1 Smoking risk assessment/counseling performed?: Yes Tobacco counseling given: counseling >3 minutes Physical Exam Const: GENERAL APPEARANCE: cooperative and comfortable ORIENTATION/CONSCIOUSNESS: Yes awake, Yes oriented to person, Yes oriented to place and Yes oriented to time HENMT: COMMON NORMALS: normocephalic, atraumatic and hearing grossly normal bilaterally HEAD & SCALP: normocephalic and atraumatic Resp: COMMON NORMALS: normal respiratory effort, No retractions, No use of accessory muscles and clear to auscultation bilaterally AUSCULTATION: clear to auscultation bilaterally Cardio: COMMON NORMALS: regular rate, regular rhythm and No murmurs present (Cardio) RATE: regular rate RHYTHM: regular rhythm GI: COMMON NORMALS: Soft to palpation and No hepatosplenomegaly present AUSCULTATION: Yes normoactive bowel sounds PALPATION: Yes Soft to palpation, No Tenderness to palpation present (GI), No Guarding due to palpation present (GI) and Yes No hepatosplenomegaly present Extremity: COMMON NORMALS: normal to inspection, capillary refill normal, no clubbing, cyanosis or edema, no calf tenderness and no pedal edema Neuro: SENSORIUM/ORIENTATION: Yes oriented to person, Yes oriented to place and Yes oriented to time Skin: COMMON NORMALS: no rashes or lesions noted GENERAL SKIN EXAM: no rashes or lesions noted Course Vital Signs: Vital signs: Vital Signs Temperature 99.6 F 02/12/22 09:16 Pulse Rate 89 02/12/22 09:37 Respiratory Rate 16 02/12/22 09:16 Blood Pressure 139/77 02/12/22 09:16 Pulse Oximetry 97 02/12/22 09:37 Oxygen Delivery Me thod 02/12/22 09:16 MDM - URI/Sore Throat Medical Decision Making Based on symptoms and exposure most likely is flu. Patient was started Tamiflu 7585 days discussed risk benefits and expectations of the Tamiflu. Give benzonatate as well to use as needed for cough follow-up with primary care as needed. Medical Records I reviewed the patient's medical records. Lab Data I reviewed the patient's lab results. Discharge Plan Discharge Patient Disposition: Home Clinical Impression: Influenza Condition: Stable Prescriptions: New benzonatate 200 mg capsule 200 mg PO TID PRN (Reason: cough) Qty: 14 0RF Tamiflu 75 mg capsule 75 mg PO BID 5 Days Qty: 10 0RF No Action Invega 3 mg tablet extended release 24hr 3 mg PO DAILY Qty: 7 1RF Rx Instructions: daily week prior to invega injection losartan 25 mg tablet 25 mg PO DAILY Qty: 90 3RF budesonide-formoterol [Symbicort] 160-4.5 mcg/actuation HFA aerosol inhaler 2 puff INHALATION Q12H Qty: 10.2 6RF albuterol sulfate [ProAir HFA] 90 mcg/actuation HFA aerosol inhaler 2 puff INHALATION QID PRN (Reason: shortness of breath or wheezing) Qty: 8.5 6RF metformin 500 mg tablet 500 mg PO DAILY Qty: 90 3RF omeprazole 20 mg capsule,delayed release(DR/EC) 20 mg PO DAILY Qty: 90 3RF bupropion HCl [Wellbutrin XL] 150 mg tablet extended release 24 hr 150 mg PO QAM Qty: 30 2RF Invega Sustenna 234 mg/1.5 mL syringe 234 mg IM Q30D Qty: 1.5 1RF methadone 40 mg tablet,soluble 60 mg PO DAILY ferrous gluconate 324 mg (37.5 mg iron) tablet 324 mg PO DAILY Qty: 30 3RF Celebrex 100 mg capsule 100 mg PO BID PRN (Reason: pain) Qty: 20 0RF Discharge Orders: Discharge ED (Routine); Ordered 02/12/22 Ordered By: Troy Trammell Discharge Diet: Usual diet Discharge Activity: Increase activity as tolerated Patient Instructions: Opioid Safety, Pain Management Activity Restrictions/Additional Instructions: You are seen today for influenza. The benzonatate Perles will help with cough. You can use Tylenol and ibuprofen. Tamiflu will slow down the flu symptoms but will not cure the flu at the end of 5 days you are likely still to have symptoms at that point need to just use supportive cares until the symptoms resolve a single course of Tamiflu is all that is indicated with an episode of influenza. Follow-up with your primary care doctor as needed. Coding Level of Care Code ED Test Boring Crew Chief for Dai Arellano
== END 2022-02-12 09:36 | disposition home or self-care (01) ==
PROVIDERS: Emergency Provider Family Medicine
DX: J11.1 Influenza due to unidentified influenza virus with other respiratory manifestations (principal); Z79.84 Long term (current) use of oral hypoglycemic drugs; I10 Essential (primary) hypertension; F17.210 Nicotine dependence, cigarettes, uncomplicated
CPT/HCPCS: 99283

== ENCOUNTER → 2022-03-02 11:01 | Outpatient (BNVA) | payer MEDICAID, SELFPAY | PROVIDERS: Visit Provider Family Medicine Adult Medicine | DX: M71.121 Other infective bursitis, right elbow (principal); Z98.890 Other specified postprocedural states; I10 Essential (primary) hypertension; F25.1 Schizoaffective disorder, depressive type; R73.03 Prediabetes; F33.1 Major depressive disorder, recurrent, moderate; F15.20 Other stimulant dependence, uncomplicated; E23.7 Disorder of pituitary gland, unspecified; Z72.0 Tobacco use; R63.4 Abnormal weight loss | CPT/HCPCS: 87070; 87075; 87205 ==

== ENCOUNTER 2022-03-16 10:58 | Outpatient (CLI) | payer MEDICAID, SELFPAY ==
--- NOTE | 2022-03-16 11:19 | XR_ITS ---
WS: [id number] Right elbow, 3 views, 03/16/2022 Clinical Data: swelling Comparison: Right elbow, 12/31/2021 Findings: No fractures or dislocations are seen. The radial head is normal. There is still swelling over the ol ecranon.. The possible fracture line of the posterior right olecranon spur remains the same. XR/XR elbow RT min 3V* [id number] Impression: No change from previous right elbow study.
[2022-03-16 11:50] LABS: Erythrocyte Sedimentation Rate 17 mm/hr (0-10)
[2022-03-16 12:04] LABS: Estmated Average Glucose 134; Hemoglobin A1C 6.3 % (4.0-6.0)
[2022-03-16 12:09] LABS: Basophils # 0.1 10^3/uL (0.0-0.1); Eosinophils # 0.2 10^3/uL (0.0-0.8); Eosinophils % 1.5 %; Hematocrit 53.9 % (42.0-52.0); Hemoglobin 17.2 g/dL (11.7-16.6); Lymphocytes # 3.6 10^3/uL (0.8-4.8); Lymphocytes % 25.6 %; Mean Corpuscular HGB Conc 31.9 g/dL (30.0-36.0); Mean Corpuscular Hemoglobin 27.7 pg (28.0-34.0); Mean Corpuscular Volume 86.7 fl (80-94); Monocytes % 7.3 %; Neutrophils # 8.89 10^3/uL (1.8-7.7); Neutrophils % 64.1 %; Nucleated Red Blood Cells % 0 %; Platelet Count 340 10^3/cmm (130-400); Red Blood Count 6.22 10^6/uL (4.1-5.3); Red Cell Distribution Width 14.7 % (12.1-15.1); White Blood Count 13.9 10^3/uL (4.0-10.0)
[2022-03-16 12:22] LABS: Alanine Aminotransferase 9 U/L (0-41); Alkaline Phosphatase 127 U/L (40-130); Anion Gap 12.1 (5-19); Aspartate Amino Transferase 12 U/L (0-40); Blood Urea Nitrogen 6 mg/dL (6-20); C Reactive Protein 25.8 mg/L (0.0-4.9); Calcium 9.4 mg/dL (8.5-10.5); Carbon Dioxide 32 mmol/L (22-29); Chloride 99 mmol/L (98-107); Globulin 3.9 g/dL (1.3-4.6); Glomerular Filtration Rate 90.1 mL/min (90-130); Glucose 146 mg/dL (65-115); Osmolality Calculated 288 mOsm/kg (285-295); Potassium 4.1 mmol/L (3.5-5.1); Sodium 139 mmol/L (136-145); Thyroid Stimulating Hormone 1.51 uIU/mL (0.27-4.20); Total Bilirubin 0.2 mg/dL (0.15-1.2); Total Protein 7.9 g/dL (6.6-8.7)
[2022-03-17 11:20] LABS: COMPLEMENT COMPONENT C3C 147 mg/dL (82-185); COMPLEMENT COMPONENT C4C 31 mg/dL (15-53)
[2022-03-17 15:04] LABS: CENTROMERE B ANTIBODY <1.0 NEG AI (<1.0 NEG); JO-1 ANTIBODY <1.0 NEG AI (<1.0 NEG); RNP ANTIBODY 1.0 POS AI (<1.0 NEG); SCL-70 ANTIBODY <1.0 NEG AI (<1.0 NEG); SJOGREN'S ANTIBODY (SS-A) <1.0 NEG AI (<1.0 NEG); SM ANTIBODY <1.0 NEG AI (<1.0 NEG); SS-B <1.0 NEG AI (<1.0 NEG)
[2022-03-18 13:20] LABS: COMPLEMENT, TOTAL (CH50) >60 U/mL (31-60)
[2022-03-18 16:34] LABS: THYROID PEROXIDASE ANTIBODIES 1 IU/mL (<9)
[2022-03-22 10:19] LABS: ANA SCREEN, IFA NEGATIVE (NEGATIVE)
[2022-03-23 10:33] LABS: DNA AB (DS) CRITHIDIA,IFA NEGATIVE (NEGATIVE)
== END 2022-03-16 10:59 | disposition home or self-care (01) ==
LOC: LAB 11:00
PROVIDERS: Visit Provider Family Medicine Adult Medicine
DX: E23.7 Disorder of pituitary gland, unspecified (principal); R63.4 Abnormal weight loss; M70.21 Olecranon bursitis, right elbow; M25.40 Effusion, unspecified joint; E11.69 Type 2 diabetes mellitus with other specified complication; E66.9 Obesity, unspecified; M15.9 Polyosteoarthritis, unspecified; M79.89 Other specified soft tissue disorders
CPT/HCPCS: 36415; 73080; 80053; 83036; 84443; 85025; 85651; 86140; 86160; 86162; 86235; 86255; 86376; 86431

== ENCOUNTER → 2022-05-13 09:04 | Outpatient (BNVA) | payer MEDICAID, SELFPAY | PROVIDERS: PCP Family Medicine Adult Medicine; Visit Provider Family Medicine Adult Medicine | DX: R79.89 Other specified abnormal findings of blood chemistry (principal); E11.69 Type 2 diabetes mellitus with other specified complication; E78.5 Hyperlipidemia, unspecified; E23.7 Disorder of pituitary gland, unspecified; E66.9 Obesity, unspecified | CPT/HCPCS: 80061; 82040; 83036; 84146; 84270; 84403 ==

== ENCOUNTER → 2022-07-29 08:00 | Outpatient (BNVA) | payer MEDICAID, SELFPAY | PROVIDERS: PCP Family Medicine Adult Medicine; Visit Provider Family Medicine Adult Medicine | DX: I10 Essential (primary) hypertension (principal); E11.69 Type 2 diabetes mellitus with other specified complication; E66.9 Obesity, unspecified; L60.2 Onychogryphosis | CPT/HCPCS: 80053; 83036 ==

== ENCOUNTER → 2022-08-08 10:26 | Outpatient (BNVA) | payer MEDICAID, SELFPAY | PROVIDERS: PCP Family Medicine Adult Medicine; Visit Provider Podiatrist Foot & Ankle Surgery | DX: I73.9 Peripheral vascular disease, unspecified (principal); E11.69 Type 2 diabetes mellitus with other specified complication; E66.9 Obesity, unspecified; B35.1 Tinea unguium; R09.89 Other specified symptoms and signs involving the circulatory and respiratory systems; G62.9 Polyneuropathy, unspecified; Z68.30 Body mass index [BMI] 30.0-30.9, adult; E11.42 Type 2 diabetes mellitus with diabetic polyneuropathy; Z79.84 Long term (current) use of oral hypoglycemic drugs | CPT/HCPCS: 11721; 99204 ==

== ENCOUNTER → 2022-09-13 15:36 | Outpatient (BNVA) | payer MEDICAID, SELFPAY | PROVIDERS: PCP Family Medicine Adult Medicine; Visit Provider Podiatrist Foot & Ankle Surgery | DX: E11.9 Type 2 diabetes mellitus without complications (principal); B35.1 Tinea unguium; G62.9 Polyneuropathy, unspecified; I73.9 Peripheral vascular disease, unspecified; L60.0 Ingrowing nail; Z79.84 Long term (current) use of oral hypoglycemic drugs | CPT/HCPCS: 99213 ==

== ENCOUNTER → 2022-10-10 11:16 | Outpatient (BNVA) | payer MEDICAID, SELFPAY | PROVIDERS: PCP Family Medicine Adult Medicine; Visit Provider Podiatrist Foot & Ankle Surgery | DX: I73.9 Peripheral vascular disease, unspecified (principal); B35.1 Tinea unguium; E11.42 Type 2 diabetes mellitus with diabetic polyneuropathy; Z79.84 Long term (current) use of oral hypoglycemic drugs; G62.9 Polyneuropathy, unspecified | CPT/HCPCS: 11721 ==

== ENCOUNTER → 2022-12-19 09:58 | Outpatient (BNVA) | payer MEDICAID, SELFPAY | PROVIDERS: PCP Family Medicine Adult Medicine; Visit Provider Podiatrist Foot & Ankle Surgery | DX: B35.1 Tinea unguium (principal); G62.9 Polyneuropathy, unspecified; I73.9 Peripheral vascular disease, unspecified; E11.42 Type 2 diabetes mellitus with diabetic polyneuropathy; Z79.84 Long term (current) use of oral hypoglycemic drugs | CPT/HCPCS: 11721 ==

== ENCOUNTER → 2023-01-12 16:12 | Outpatient (BNVA) | payer MEDICAID, SELFPAY | PROVIDERS: PCP Family Medicine Adult Medicine; Visit Provider Family Medicine Adult Medicine | DX: R76.11 Nonspecific reaction to tuberculin skin test without active tuberculosis (principal) | CPT/HCPCS: 71046 ==

== ENCOUNTER → 2023-01-13 10:41 | Outpatient (BNVA) | payer MEDICAID, SELFPAY | PROVIDERS: PCP Family Medicine Adult Medicine; Visit Provider Family Medicine Adult Medicine | DX: R76.11 Nonspecific reaction to tuberculin skin test without active tuberculosis (principal) | CPT/HCPCS: 86480 ==

== ENCOUNTER → 2023-02-20 09:14 | Outpatient (BNVA) | payer MEDICAID, SELFPAY | PROVIDERS: PCP Family Medicine Adult Medicine; Visit Provider Podiatrist Foot & Ankle Surgery | DX: B35.1 Tinea unguium (principal); G62.9 Polyneuropathy, unspecified; I73.9 Peripheral vascular disease, unspecified; E11.42 Type 2 diabetes mellitus with diabetic polyneuropathy; Z79.84 Long term (current) use of oral hypoglycemic drugs | CPT/HCPCS: 99213 ==

== ENCOUNTER → 2023-03-30 16:34 | Outpatient (BNVA) | payer MEDICAID, SELFPAY ==
[2023-03-14 15:05] VITALS: BP 187/108
== END ==
PROVIDERS: PCP Family Medicine Adult Medicine; Visit Provider Family Medicine Adult Medicine
DX: M25.421 Effusion, right elbow (principal)
CPT/HCPCS: 87070; 87077; 87184; 87205

== ENCOUNTER → 2023-04-05 14:21 | Outpatient (BNVA) | payer MEDICAID, SELFPAY ==
[2023-03-14 15:05] VITALS: BP 187/108
== END ==
PROVIDERS: PCP Family Medicine Adult Medicine; Referring Provider Family Medicine Adult Medicine; Visit Provider Specialist
DX: M25.421 Effusion, right elbow (principal); M25.521 Pain in right elbow
CPT/HCPCS: 20605; 73080; 99204

== ENCOUNTER → 2023-04-28 08:41 | Outpatient (BNVA) | payer MEDICAID, SELFPAY ==
[2023-03-14 15:05] VITALS: BP 187/108
== END ==
PROVIDERS: PCP Family Medicine Adult Medicine; Referring Provider Family Medicine Adult Medicine; Visit Provider Specialist
DX: G62.81 Critical illness polyneuropathy (principal); E11.69 Type 2 diabetes mellitus with other specified complication; E66.9 Obesity, unspecified
CPT/HCPCS: 99203

== ENCOUNTER 2023-05-29 10:50 | Emergency (ER) | payer MEDICAID, SELFPAY ==
[2023-03-14 15:05] VITALS: BP 187/108
[2023-05-29 10:56] VITALS: BP 176/85; PULSE 55; RESP 16; TEMP 36.6; O2SAT 94; BMI 32.9
[2023-05-29 13:34] VITALS: BP 144/87; PULSE 56; RESP 17; O2SAT 96
--- NOTE | 2023-05-29 13:36 | XRR_ITS ---
PROCEDURE INFORMATION: Exam: XR Left Hand Exam date and time: 05/29/2023 1:57 PM Age: 47 years old Clinical indication: Swelling; Hand; Left; Additional info: Swelling/pain TECHNIQUE: Imaging protocol: Radiologic exam of the left hand. Views: 3 or more views. COMPARISON: CR XR hand LT min 3V* [id number] 06/27/2019 6:19 PM FINDINGS: Bones/joints: A few tiny periarticular focal erosions scattered in the left hand with a few other subtle findings of inflammatory arthropathy. Otherwise, unremarkable. Soft tissues: Diffuse soft tissue swelling. XR/XR hand LT min 3V* [id number] IMPRESSION: Probable very early polyostotic inflammatory arthropathy.
--- NOTE | 2023-05-29 13:36 | ED_ITS ---
HPI - Extremity Problem General: Chief complaint: Extremity Injury, Upper Stated complaint: Left Wrist and Hand swollen Time Seen by Provider: 05/29/23 11:02 Source: patient Mode of arrival: ambulatory Limitations: no limitations History of Present Illness: Patient is a 47-year-old male who presents to ED today with a complaint of swelling to the dorsum of his left hand and wrist over the last 3 days or so. No known injury or trauma. He has not noticed any redness or warmth to the area. Pain is made worse with range of motion. He is not having any numbness, tingling, loss of sensation to the hand or digits. He has not noticed any color or temperature changes. No recent scrapes, cuts, abrasions. He has not been running fevers. No other systemic symptoms. No history of gout. MD Complaint: extremity pain, extremity swelling, joint swelling and joint pain Onset (ago): day(s) Pain Consistency: constant Location: left and upper extremity Radiation: none Relieving factors: movement Exacerbating factors: nothing Associated symptoms: Reports no associated symptoms; Deny fever(s) or rash Review of Systems Const: Denies: fever(s), chills, body aches, fatigue or malaise Musc: Reports: extremity pain (L hand), extremity swelling (L hand), joint pain (L wrist) and joint swelling (L wrist); Denies: neck pain or back pain Skin/Breast: Denies: rash or erythema Neuro: Denies: numbness in extremities, weakness in extremities or sensory changes PFS ED PFSH: Medical History Effusion of bursa of right elbow Peripheral neuropathy Positive skin test for tuberculosis Amphetamine dependence, in remission Encounter for smoking cessation counseling Opioid dependence Polysubstance (excluding opioids) dependence, daily use tobacco, benzo diazepam, cannabis, opioids, other stimulants Hypertrophic toenail COPD (chronic obstructive pulmonary disease) Dyslipidemia associated with type 2 diabetes mellitus Chronic pain after traumatic injury Olecranon bursitis of right elbow Osteoarthritis involving multiple joints on both sides of body Diabetes mellitus type 2 in obese Tobacco use Pituitary abnormality Other stimulant dependence, uncomplicated Maxillary fracture, left side, initial encounter for closed fracture Psychiatric care Cannabis dependence, uncomplicated Major depressive disorder, recurrent, moderate Benzodiazepine use agreement exists Low testosterone level in male Essential (primary) hypertension Hernia Schizoaffective disorder, depressive type Surgical History S/P aspiration of joint History of surgery on right wrist Umbilical hernia Family History Mother CAD (coronary artery disease) Hypertension Denies family history of Anesthesia complication Bleeding disorder Social History Smoking and tobacco/nicotine status: current every day tobacco/nicotine user cigarettes Packs smoked per day: 1 Physical Exam Const: COMMON NORMALS: no acute distress, patient oriented x3, no limitations, alert and well nourished Resp: COMMON NORMALS: normal respiratory effort Cardio: COMMON NORMALS: regular rate and regular rhythm RATE: regular rate RHYTHM: regular rhythm Extremity: COMMON NORMALS: full ROM and capillary refill normal GENERAL: Yes normal exam except as noted LEFT UPPER EXTREMITY: Yes wrist Left wrist: Yes neurovascular exam (normal) and Yes hand & digits Left hand and digits: Yes ROM (can wiggle all digits easily) and Yes neurovascular exam (normal) OTHER: has edema to dorsal L hand/wrist; no overlying erythema/warmth; radial pulse and cap refill normal; sensation intact; can wiggle all digits easily; has normal micromovements of L wrist; pain not out of proportion to exam; no cuts/scrapes/abrasions/etc; no lymphangitic streaking Neuro: COMMON NORMALS: patient oriented x3, moves all extremities, no focal motor deficits and no sensory deficits noted SENSORIUM/ORIENTATION: Yes alert Course Vital Signs: Vital signs: Vital Signs Temperature 97.8 F 05/29/23 10:56 Pulse Rate 56 L 05/29/23 13:34 Respiratory Rate 17 05/29/23 13:34 Blood Pressure 144/87 05/29/23 13:34 Pulse Oximetry 96 05/29/23 13:34 Oxygen Delivery Me thod Room Air 05/29/23 13:34 MDM - Extremity (Nontraumatic) Medical Decision Making XR negative for acute bony injury. At this time I do not have any suspicion for bacterial infection. Seems to be an inflammatory component. Patient will be treated with steroids and anti-inflammatories. Other DDx includes gout but has never had a previous history of this. Return to ED precautions given. Otherwise I would like him to follow-up with primary care later this week. Medical Records I reviewed the patient's medical records. All radiology interpretation(s) finalized by discharge Discharge Plan Discharge Patient Disposition: Home Clinical Impression: Joint inflammation of left hand and wrist Condition: Stable Prescriptions: New prednisone 10 mg tablet 10 mg PO DAILY 7 Days Qty: 27 0RF Rx Instructions: 6 tabs on days 1-2, 5 tabs on days 3, 4 tabs on day 4, 3 tabs on day 5, 2 tabs on day 6, 1 tab on day 7 diclofenac sodium 50 mg tablet,delayed release (DR/EC) 50 mg PO Q12H PRN (Reason: pain) Qty: 20 0RF No Action Invega 3 mg tablet extended release 24hr 3 mg PO DAILY Qty: 7 1RF Rx Instructions: daily week prior to invega injection omeprazole 20 mg capsule,delayed release(DR/EC) 20 mg PO DAILY Qty: 90 3RF pregabalin [Lyrica] 100 mg capsule 100 mg PO BID Qty: 60 5RF (DME) diabetic shoes with 3 inserts See Rx Instructions .Route .MEDSUPPLY Qty: 1 0RF Rx Instructions: As directed to the shoe charity ondansetron HCl 8 mg tablet 8 mg PO Q12H PRN (Reason: nausea and vomiting) Qty: 10 0RF bupropion HCl [Wellbutrin XL] 150 mg tablet extended release 24 hr 150 mg PO QAM Qty: 30 2RF Invega Sustenna 234 mg/1.5 mL syringe 234 mg IM Q30D Qty: 1.5 2RF polyethylene glycol 3350 [Miralax] 17 gram/dose powder 4 g PO DAILY Qty: 238 0RF methadone 40 mg tablet,soluble 85 mg PO DAILY losartan 25 mg tablet 25 mg PO DAILY Qty: 90 3RF pregabalin 50 mg capsule 50 mg PO TID Qty: 90 1RF metformin 500 mg tablet 500 mg PO DAILY Qty: 90 3RF atorvastatin 40 mg tablet See Rx Instructions .ROUTE .COMPLEX Qty: 30 5RF Dose Instruction: TAKE 1 TABLET BY MOUTH DAILY Rx Instructions: TAKE 1 TABLET BY MOUTH DAILY testosterone cypionate [Depo-Testosterone] 200 mg/mL oil 200 mg SUBCUT Q14D Qty: 1 5RF albuterol sulfate [Ventolin HFA] 90 mcg/actuation HFA aerosol inhaler 2 puff inhalation QID PRN (Reason: shortness of breath or wheezing) Qty: 8.5 2RF budesonide-formoterol [Symbicort] 160-4.5 mcg/actuation HFA aerosol inhaler 2 puff INHALATION Q12H Qty: 10.2 11RF Discharge Orders: Discharge ED (Routine); Ordered 05/29/23 Ordered By: Alice Perez Referrals: Vlad Hinkle MD [Primary Care Provider] - Activity Restrictions/Additional Instructions: You may ice and elevate the extremity in addition to medications prescribed to you today. Please follow-up with primary care later this week if symptoms do not seem to be improving. You need to return to the emergency department for worsening pain, swelling, redness or heat to the hand or joint, red streaking up your arm, fevers, generally feeling worse or unwell, or any other concerns you may have. Coding Level of Care Code ED Hair Boiler Operator for Dai Arellano
[2023-05-29] MEDS: dexamethasone 10 mg/mL INJ IM (14:46)
== END 2023-05-29 14:51 | disposition home or self-care (01) ==
PROVIDERS: Emergency Provider Physician Assistant; PCP Family Medicine Adult Medicine
DX: M19.042 Primary osteoarthritis, left hand (principal); M19.032 Primary osteoarthritis, left wrist; Z79.891 Long term (current) use of opiate analgesic; F17.210 Nicotine dependence, cigarettes, uncomplicated; J44.9 Chronic obstructive pulmonary disease, unspecified; E78.5 Hyperlipidemia, unspecified; E11.42 Type 2 diabetes mellitus with diabetic polyneuropathy; I10 Essential (primary) hypertension
CPT/HCPCS: 73130; 96372; 99284; J1100

== ENCOUNTER → 2023-08-04 09:57 | Outpatient (BNVA) | payer MEDICAID, SELFPAY ==
[2023-03-14 15:05] VITALS: BP 187/108
== END ==
PROVIDERS: PCP Family Medicine Adult Medicine; Referring Provider Family Medicine Adult Medicine; Visit Provider Surgery
DX: K92.2 Gastrointestinal hemorrhage, unspecified (principal); Z80.0 Family history of malignant neoplasm of digestive organs; K21.9 Gastro-esophageal reflux disease without esophagitis
CPT/HCPCS: 99204

== ENCOUNTER → 2023-08-08 09:47 | Outpatient (BNVA) | payer MEDICAID, SELFPAY ==
[2023-03-14 15:05] VITALS: BP 187/108
== END ==
PROVIDERS: PCP Family Medicine Adult Medicine; Visit Provider Podiatrist Foot & Ankle Surgery
DX: G62.81 Critical illness polyneuropathy (principal); I73.9 Peripheral vascular disease, unspecified; L60.0 Ingrowing nail; E11.9 Type 2 diabetes mellitus without complications; Z79.84 Long term (current) use of oral hypoglycemic drugs
CPT/HCPCS: 11720; 99213

== ENCOUNTER 2023-09-13 10:45 | Day surgery (SDC) | payer MEDICAID, SELFPAY ==
[2023-03-14 15:05] VITALS: BP 187/108
[2023-09-13 11:16] VITALS: BP 187/109; PULSE 56; RESP 16; TEMP 36.3; O2SAT 94; BMI 31.1
[2023-09-13] MEDS: sodium chloride 0.9% 1,000 ML 30 ML IV (11:30)
[2023-09-13 11:35] VITALS: BP 193/109
[2023-09-13] MEDS: hyDRALAzine 20 mg/mL INJ 1 mL 10 MG IVP ×2 (11:50→12:29)
--- NOTE | 2023-09-13 11:54 | PC.NURSE ---
PRE-OP BP 187/109, SECOND CHECK 193/109. NOTIFIED ANESTHESIA. HYDRALAZINE 10MG ORDERED AND ADMINISTERED.
[2023-09-13 12:01] LABS: Glucose Point of Care 115 mg/dL (70-110)
[2023-09-13 12:16] VITALS: BP 186/108; PULSE 58
--- NOTE | 2023-09-13 12:19 | PM.HP ---
Providers/Chief Complaint Primary Care Provider: Vlad Hinkle MD Chief Complaint: Z80.0 History of Present Illness Dino Terrazas is a 47 year old male Medications/Allergies Home Medications Medication Instructions Recorded Confirmed Last Taken Type omeprazole 20 mg capsule,delayed 20 mg PO DAILY #90 caps 06/07/21 09/13/23 09/11/23 Rx release methadone 40 mg soluble tablet 85 mg PO DAILY 05/10/22 09/13/23 09/11/23 History metformin 500 mg tablet 500 mg PO DAILY #90 tabs 08/30/22 09/13/23 09/11/23 Rx diabetic shoes with 3 inserts #1 ea 12/19/22 08/23/23 Unknown Rx ondansetron HCl 8 mg tablet 8 mg PO Q12H PRN nausea and 02/07/23 09/13/23 09/11/23 Rx vomiting #10 tabs pregabalin 100 mg capsule (Lyrica) 100 mg PO BID #60 caps 04/28/23 09/13/23 09/11/23 Rx budesonide-formoterol HFA 160 2 puff inhalation Q12H #10.2 grams 05/24/23 09/13/23 09/11/23 Rx mcg-4.5 mcg/actuation aerosol inhaler (Symbicort) loratadine 10 mg tablet 10 mg PO DAILY PRN cough/PND #30 06/07/23 09/13/23 Unknown Rx tabs bupropion HCl 150 mg 24 hr tablet, 150 mg PO QAM #30 tabs 07/20/23 09/13/23 09/11/23 Rx extended release (Wellbutrin XL) paliperidone 3 mg tablet,extended 3 mg PO DAILY #7 tabs 07/20/23 09/12/23 07/24/23 Rx release 24 hr (Invega) paliperidone palmitate 234 mg/1.5 234 mg (1.5 mL) IM Q30D #1.5 mL 07/20/23 09/13/23 08/17/23 Rx mL intramuscular syringe (Invega Sustenna) calcium polycarbophil 625 mg 1,250 mg (2 x 625 mg) PO BID 07/25/23 09/13/23 09/11/23 Rx tablet (FiberCon) constipation #120 tabs testosterone cypionate 200 mg/mL 200 mg SUBCUT Q14D #1 mL 07/25/23 09/12/23 09/05/23 Rx intramuscular oil (Depo-Testosterone) pantoprazole 40 mg tablet,delayed 40 mg PO BID 6 weeks #84 tabs 08/04/23 09/13/23 09/11/23 Rx release (Protonix) losartan 50 mg tablet 50 mg PO DAILY high blood pressure 08/09/23 09/13/23 09/11/23 Rx #30 tabs polyethylene glycol 3350 17 4 g PO DAILY #238 grams 08/11/23 09/12/23 09/11/23 Rx gram/dose oral powder (Miralax) albuterol sulfate 90 mcg/actuation 2 puff inhalation QID PRN 09/06/23 09/13/23 09/11/23 Rx aerosol inhaler (Ventolin HFA) shortness of breath or wheezing #8.5 grams atorvastatin 40 mg tablet 40 mg PO DAILY 09/12/23 09/13/23 09/11/23 History Allergies Allergy/AdvReac Type Severity Reaction Status Date / Time ibuprofen Allergy unknown Verified 09/12/23 08:43 meperidine [From Demerol] Allergy unknown Verified 09/12/23 08:43 PFSH Acute PFSH: Medical History (Updated 08/18/23 @ 11:51 by Temi Bettencourt, [facility]) On combination antipsychotic drug therapy Overdose of antipsychotic Family history of colon cancer Constipation Rectal bleeding Nicotine dependence, cigarettes, uncomplicated Peripheral neuropathy Positive skin test for tuberculosis Amphetamine dependence, in remission Encounter for smoking cessation counseling Opioid dependence Polysubstance (excluding opioids) dependence, daily use tobacco, benzo diazepam, cannabis, opioids, other stimulants Hypertrophic toenail COPD (chronic obstructive pulmonary disease) Dyslipidemia associated with type 2 diabetes mellitus Chronic pain after traumatic injury Osteoarthritis involving multiple joints on both sides of body Diabetes mellitus type 2 in obese Tobacco use Pituitary abnormality Other stimulant dependence, uncomplicated Maxillary fracture, left side, initial encounter for closed fracture Psychiatric care Cannabis dependence, uncomplicated Major depressive disorder, recurrent, moderate Benzodiazepine use agreement exists Low testosterone level in male Essential (primary) hypertension Hernia Schizoaffective disorder, depressive type Surgical History S/P aspiration of joint History of surgery on right wrist Umbilical hernia Family History Mother CAD (coronary artery disease) Hypertension Denies family history of Anesthesia complication Bleeding disorder Social History Smoking and tobacco/nicotine status: current every day tobacco/nicotine user cigarettes Packs smoked per day: 1 Vitals/I&O/Wt Last Vital Signs Temp 97.3 F L 09/13/23 11:16 Pulse 56 L 09/13/23 11:16 Resp 16 09/13/23 11:16 BP 193/109 09/13/23 11:35 Pulse Ox 94 09/13/23 11:16 O2 Del Method Room Air 09/13/23 11:16 Weight last 48 hrs Weight 230 lb A&P Assessment and plan (1) Rectal bleeding: (2) GI bleed: (3) Family history of colon cancer: (4) GERD (gastroesophageal reflux disease): Plan EGD and colonoscopy Attestations Medical Necessity Statement*: Home Coding Level of Care Code Acute Code for Chg Fwd Diagnoses Rectal bleeding K62.5 GI bleed K92.2 Family history of colon cancer Z80.0 GERD (gastroesophageal reflux disease) K21.9
--- NOTE | 2023-09-13 12:35 | ANES.PREANE2 ---
Pre-Anesthetic Assessment Height/Weight: Height 1.83 m Weight 104.326 kg Temp Pulse Resp BP Pulse Ox O2 Del Method 97.3 F L 58 L 16 186/108 94 Room Air 09/13/23 11:16 09/13/23 12:16 09/13/23 11:16 09/13/23 12:16 09/13/23 11:16 09/13/23 11:16 Preop Diagnosis: Hematachezia Operation Date: 09/13/23 11:45 Proposed Procedures p EGD 97742, 25353,G0105, k21.9, Z80.0, K92.2(Not Applicable) - Solomon Christian DO s Colonoscopy(Not Applicable) - Solomon Christian DO Was Beta Fei taken within 24 hours: N/A Was Clonidine taken within 24 hours: N/A Last intake: Intake Last Liquid Date 09/12/23 Last Liquid Time 23:50 Last Solid Date 09/11/23 Last Solid Time 21:00 Social Tobacco 2 pack(s) per day Marijuana dependence Exam alert, oriented x 3, clear to auscultation bilaterally and regular rate & rhythm Airway Submandibular: within normal limits Cervical ROM: within normal limits Mallampati: Class II Dentition: full History/ROS No significant history except as noted and No significant complaints Pulmonary Chronic Obstructive Pulmonary Disease, Cough, Exertional Dyspnea and Shortness of Breath CV/HEM Hypertension None reported Hepatic None reported GI Gastroesophageal Reflux Disease Metabolic Diabetes Mellitus and Morbid Obesity [facility] [place] Lower Back Pain Neuropsych Shizoaffective disorder Anesthetic Plan ASA status: 3 Anesthesia: Anesthesia Evaluation and MAC Risk of > 500 ml blood loss (7ml/kg in children): No Medications/Allergies Home Medications Medication Instructions Recorded Confirmed Last Taken Type omeprazole 20 mg capsule,delayed 20 mg PO DAILY #90 caps 06/07/21 09/13/23 09/11/23 Rx release methadone 40 mg soluble tablet 85 mg PO DAILY 05/10/22 09/13/23 09/11/23 History metformin 500 mg tablet 500 mg PO DAILY #90 tabs 08/30/22 09/13/23 09/11/23 Rx diabetic shoes with 3 inserts #1 ea 12/19/22 08/23/23 Unknown Rx ondansetron HCl 8 mg tablet 8 mg PO Q12H PRN nausea and 02/07/23 09/13/23 09/11/23 Rx vomiting #10 tabs pregabalin 100 mg capsule (Lyrica) 100 mg PO BID #60 caps 04/28/23 09/13/23 09/11/23 Rx budesonide-formoterol HFA 160 2 puff inhalation Q12H #10.2 grams 05/24/23 09/13/23 09/11/23 Rx mcg-4.5 mcg/actuation aerosol inhaler (Symbicort) loratadine 10 mg tablet 10 mg PO DAILY PRN cough/PND #30 06/07/23 09/13/23 Unknown Rx tabs bupropion HCl 150 mg 24 hr tablet, 150 mg PO QAM #30 tabs 07/20/23 09/13/23 09/11/23 Rx extended release (Wellbutrin XL) paliperidone 3 mg tablet,extended 3 mg PO DAILY #7 tabs 07/20/23 09/12/23 07/24/23 Rx release 24 hr (Invega) paliperidone palmitate 234 mg/1.5 234 mg (1.5 mL) IM Q30D #1.5 mL 07/20/23 09/13/23 08/17/23 Rx mL intramuscular syringe (Invega Sustenna) calcium polycarbophil 625 mg 1,250 mg (2 x 625 mg) PO BID 07/25/23 09/13/23 09/11/23 Rx tablet (FiberCon) constipation #120 tabs testosterone cypionate 200 mg/mL 200 mg SUBCUT Q14D #1 mL 07/25/23 09/12/23 09/05/23 Rx intramuscular oil (Depo-Testosterone) pantoprazole 40 mg tablet,delayed 40 mg PO BID 6 weeks #84 tabs 08/04/23 09/13/23 09/11/23 Rx release (Protonix) losartan 50 mg tablet 50 mg PO DAILY high blood pressure 08/09/23 09/13/23 09/11/23 Rx #30 tabs polyethylene glycol 3350 17 4 g PO DAILY #238 grams 08/11/23 09/12/23 09/11/23 Rx gram/dose oral powder (Miralax) albuterol sulfate 90 mcg/actuation 2 puff inhalation QID PRN 09/06/23 09/13/23 09/11/23 Rx aerosol inhaler (Ventolin HFA) shortness of breath or wheezing #8.5 grams atorvastatin 40 mg tablet 40 mg PO DAILY 09/12/23 09/13/23 09/11/23 History Allergies Allergy/AdvReac Type Severity Reaction Status Date / Time ibuprofen Allergy unknown Verified 09/12/23 08:43 meperidine [From Demerol] Allergy unknown Verified 09/12/23 08:43 Current Medications Generic Name Dose Route Start Last Admin Trade Name Freq PRN Reason Stop Dose Admin Sodium Chloride 1,000 mls @ 30 mls/hr 09/13/23 11:00 09/13/23 11:30 Sodium Chloride 0.9% IV 09/14/23 10:59 30 mls/hr .Q24H ALIYA Administration PFS Anesthesia Medical History (Updated 08/18/23 @ 11:51 by Temi Bettencourt, [facility]) On combination antipsychotic drug therapy Overdose of antipsychotic Family history of colon cancer Constipation Rectal bleeding Nicotine dependence, cigarettes, uncomplicated Peripheral neuropathy Positive skin test for tuberculosis Amphetamine dependence, in remission Encounter for smoking cessation counseling Opioid dependence Polysubstance (excluding opioids) dependence, daily use tobacco, benzo diazepam, cannabis, opioids, other stimulants Hypertrophic toenail COPD (chronic obstructive pulmonary disease) Dyslipidemia associated with type 2 diabetes mellitus Chronic pain after traumatic injury Osteoarthritis involving multiple joints on both sides of body Diabetes mellitus type 2 in obese Tobacco use Pituitary abnormality Other stimulant dependence, uncomplicated Maxillary fracture, left side, initial encounter for closed fracture Psychiatric care Cannabis dependence, uncomplicated Major depressive disorder, recurrent, moderate Benzodiazepine use agreement exists Low testosterone level in male Essential (primary) hypertension Hernia Schizoaffective disorder, depressive type Surgical History S/P aspiration of joint History of surgery on right wrist Umbilical hernia Family History Mother CAD (coronary artery disease) Hypertension Denies family history of Anesthesia complication Bleeding disorder Social History Smoking and tobacco/nicotine status: current every day tobacco/nicotine user cigarettes Packs smoked per day: 1 Data Anesthesia Cardiac Studies: No Data to Display
[2023-09-13 13:07] VITALS: BP 139/86; PULSE 68; RESP 18; TEMP 36.2; O2SAT 91
--- NOTE | 2023-09-13 13:39 | PM.PN ---
Subjective Subjective: Patient has been taking a double dose of MiraLAX every day but still does not have a bowel movement every day. Colonoscopy was a poor prep but improved with irrigation. Vitals/I&O/Wt Last Vital Signs Temp 97.1 F L 09/13/23 13:07 Pulse 68 09/13/23 13:07 Resp 18 09/13/23 13:07 BP 139/86 09/13/23 13:07 Pulse Ox 91 09/13/23 13:07 O2 Del Method Room Air 09/13/23 11:16 09/12/23 09/13/23 09/13/23 22:59 06:59 14:59 Intake Total 500 / 500 Balance 500 / 500 Weight last 48 hrs Weight 230 lb A&P Assessment and plan (1) Chronic idiopathic constipation: Plan Linzess 145 mcg daily Attestations Medical Necessity Statement*: Home Coding Level of Care Code Acute Code for Chg Fwd Diagnoses Chronic idiopathic constipation K59.04
--- NOTE | 2023-09-13 13:45 | ANE.PACU2 ---
Inpatient post-anesthesia follow up: Airway intact: Yes Vital signs: Temperature 97.1 F Pulse Rate 68 Respiratory Rate 18 Blood Pressure 139/86 Pulse Oximetry 91 Oxygen Delivery Me thod Room Air Oxygen Flow Rate Fraction of Inspir ed Oxygen Hydration adequate: Yes Nausea and vomiting: No Pain level: 1 Mental status: Baseline
== END 2023-09-13 13:47 | disposition home or self-care (01) ==
PROVIDERS: PCP Family Medicine Adult Medicine; Visit Provider Surgery
PROC: 0DJ08ZZ Inspection of Upper Intestinal Tract, Via Natural or Artificial Opening Endoscopic (ICD-10-PCS; CPT 43235; principal; 2023-09-13 11:45)
PROC: 0DJD8ZZ Inspection of Lower Intestinal Tract, Via Natural or Artificial Opening Endoscopic (ICD-10-PCS; CPT 45378; 2023-09-13 11:45)
DX: K29.50 Unspecified chronic gastritis without bleeding (principal); Z80.0 Family history of malignant neoplasm of digestive organs; K21.9 Gastro-esophageal reflux disease without esophagitis; K59.04 Chronic idiopathic constipation; K57.30 Diverticulosis of large intestine without perforation or abscess without bleeding; K29.80 Duodenitis without bleeding; F17.210 Nicotine dependence, cigarettes, uncomplicated
CPT/HCPCS: 36416; 43239; 45378; 82962; 88305; 88342; J0360; J2250; J2704; J3490; J7030

== ENCOUNTER → 2023-09-18 14:17 | Outpatient (BNVA) | payer OTHER, SELFPAY ==
[2023-03-14 15:05] VITALS: BP 187/108
== END ==
PROVIDERS: PCP Family Medicine Adult Medicine; Visit Provider Nurse Practitioner
DX: Z79.899 Other long term (current) drug therapy (principal); T43.501A Poisoning by unspecified antipsychotics and neuroleptics, accidental (unintentional), initial encounter
CPT/HCPCS: 80061; 83036

== ENCOUNTER → 2023-09-20 13:11 | Outpatient (BNVA) | payer MEDICAID, SELFPAY ==
[2023-09-20 10:55] VITALS: BP 152/82; BMI 30.7
== END ==
PROVIDERS: PCP Family Medicine Adult Medicine; Visit Provider Specialist
DX: G62.81 Critical illness polyneuropathy (principal); E11.69 Type 2 diabetes mellitus with other specified complication; E66.9 Obesity, unspecified; R03.0 Elevated blood-pressure reading, without diagnosis of hypertension; F17.200 Nicotine dependence, unspecified, uncomplicated; J44.9 Chronic obstructive pulmonary disease, unspecified; Z79.84 Long term (current) use of oral hypoglycemic drugs; Z68.30 Body mass index [BMI] 30.0-30.9, adult; Z71.6 Tobacco abuse counseling
CPT/HCPCS: 99213; 99214

== ENCOUNTER 2023-09-29 10:00 | Outpatient (CLI) | payer OTHER, SELFPAY ==
[2023-09-20 10:55] VITALS: BP 152/82; BMI 30.7
--- NOTE | 2023-09-29 10:00 | CTR_ITS ---
PROCEDURE INFORMATION: Exam: CT Chest Without Contrast; Diagnostic Exam date and time: 09/29/2023 10:19 AM Age: 47 years old Clinical indication: Condition or disease; Lung condition and disease; Copd; Complications not specified; Additional info: J44.9 - chronic obstructive pulmonary disease, unspecified, smokes 1/5 ppd since child TECHNIQUE: Imaging protocol: Diagnostic computed tomography of the chest without contrast. Sagittal and coronal reformatted images were created and reviewed. Radiation optimization: All CT scans at this facility use at least one of these dose optimization techniques: automated exposure control; mA and/or kV adjustment per patient size (includes targeted exams where dose is matched to clinical indication); or iterative reconstruction. COMPARISON: CR XR chest 2V* [id number] 01/12/2023 4:42 PM RADIATION DOSE METRICS: Total DLP (mGy-cm): 565.05 FINDINGS: Trachea: Tracheobronchial structures are patent. Lungs: Mild to moderate paraseptal emphysematous changes in the lungs, most pronounced in the upper lobes. Lungs are clear bilaterally. Noncalcified nodule in the right upper lobe with an average measurement of 1.1 cm (series 4, image 17). Pleural spaces: No pneumothorax. No pleural effusion. Heart: Stable mild enlargement of the heart. Coronary arteries: No coronary artery calcification. Esophagus: The esophagus is unremarkable. Mediastinal space: No mediastinal hematoma. No pneumomediastinum. Lymph nodes: No lymphadenopathy. Vasculature: No evidence for aortic aneurysm. Pulmonary arteries are unremarkable. Pulmonary veins are unremarkable. Liver: The visualized liver is unremarkable. Gallbladder and biliary ducts: The visualized gallbladder is unremarkable. No dilatation of the visualized bile ducts. Pancreas: Pancreatic parenchymal calcifications in the visualized pancreas, consistent with sequela of chronic pancreatitis. No pancreatic ductal dilatation. No pancreatic atrophy. Spleen: The spleen is unremarkable. Adrenal glands: The right adrenal gland is unremarkable. Low density nodule in the left adrenal gland measuring 1.2 x 1.1 cm (series 4, image 65). Findings are consistent with an adrenal adenoma. Kidneys and ureters: The visualized left kidney is unremarkable. Bones/joints: Mild degenerative changes in the visualized spine. Soft tissues: The extrathoracic soft tissues are unremarkable. CT/CT chest wo con [id number] IMPRESSION: 1. No acute cardiopulmonary process. 2. Noncalcified nodule in the right upper lobe with an average measurement of 1.1 cm. For both low risk and high risk patients, consider CT Chest at 3 months, PET/CT, or biopsy. (Reference: Hari) 3. Mild to moderate paraseptal emphysematous changes in the lungs, most pronounced in the upper lobes. 4. Pancreatic parenchymal calcifications in the visualized pancreas, consistent with sequela of chronic pancreatitis. 5. Left adrenal adenoma. 6. Incidental/nonacute findings are listed in the report. REFERENCES: Hari Camacho, et al. Guidelines for Management of Incidental Pulmonary Nodules Detected on CT Images: From the Fleischner Society 2017. Radiology. 2017;284(1):228-243.
== END 2023-09-29 10:01 | disposition home or self-care (01) ==
PROVIDERS: PCP Family Medicine Adult Medicine; Visit Provider Specialist
DX: J44.9 Chronic obstructive pulmonary disease, unspecified (principal); F17.200 Nicotine dependence, unspecified, uncomplicated; R91.1 Solitary pulmonary nodule; J43.9 Emphysema, unspecified; K86.89 Other specified diseases of pancreas; D35.02 Benign neoplasm of left adrenal gland
CPT/HCPCS: 71250

== ENCOUNTER → 2023-10-02 13:50 | Outpatient (BNVA) | payer MEDICAID, SELFPAY ==
[2023-09-20 10:55] VITALS: BP 152/82; BMI 30.7
== END ==
PROVIDERS: PCP Family Medicine Adult Medicine; Visit Provider Surgery
DX: Z09 Encounter for follow-up examination after completed treatment for conditions other than malignant neoplasm (principal)
CPT/HCPCS: 99214

== ENCOUNTER 2023-10-24 10:32 | Outpatient (CLI) | payer MEDICAID, SELFPAY ==
[2023-09-20 10:55] VITALS: BP 152/82; BMI 30.7
--- NOTE | 2023-10-24 | PETR_ITS ---
PROCEDURE INFORMATION: Exam: PET/CT Skull Base to Mid-thigh Exam date and time: 10/24/2023 12:59 PM Age: 47 years old Clinical indication: Abnormal findings; Noncalcified nodule in the right upper lobe with an average measurement of 1.1 cm; Additional info: Abnormal imaging LABS AND CLINICAL REPORTS: Glucose: 90 mg/dl Treatment strategy for malignancy (PET staging): Initial Staging (PI) TECHNIQUE: Imaging protocol: Following at least four-hour fasting and following the injection of radiopharmaceutical, low dose CT images were obtained. Then, PET images were obtained. Attenuation corrected images were constructed using the CT scan. Fused images of PET and CT were reviewed. The standardized uptake values (SUV) reported below are maximum values within a region of interest, expressed in gm/ml. Exam includes orbital meatal line to mid-thigh. Radiopharmaceutical: 11.34 mCi F-18 FDG (Fluorodeoxyglucose), IV. Time of imaging post radiopharmaceutical administration: 1 hour Injection site: Right antecubital COMPARISON: CT chest [facility] [id number] 09/29/2023 10:19 AM FINDINGS: Brain: Visualized brain has normal physiologic uptake. Paranasal sinuses: Mild left inferior maxillary sinus mucosal thickening with low-level FDG uptake. Small non FDG avid right maxillary sinus mucous retention cyst. Pharynx: No abnormal uptake. Larynx: No abnormal uptake. Thyroid: Diffuse thyroid gland FDG uptake without discrete nodule. Lungs, pleura and trachea: No abnormal uptake. Mild upper lung predominant emphysematous change. 1 cm anterior right upper lobe subpleural nodular density on axial image 276 of series 202 appears more bandlike on orthogonal images and is decreased in conspicuity compared to recent chest CT. Heart: Normal physiologic uptake. Mediastinal space: No abnormal uptake. Liver: No abnormal uptake. Enlarged, measuring 20 cm in craniocaudal dimension. Gallbladder and biliary ducts: No abnormal uptake. Pancreas: No abnormal uptake. Small calcifications in keeping with chronic pancreatitis. Spleen: No abnormal uptake. Adrenal glands: No abnormal uptake. Non FDG avid 1.2 cm left adrenal nodule with hypodensity compatible with adenoma. Kidneys and ureters: Normal physiologic uptake. Stomach and bowel: Couple areas of segmental thickening along the colon, to include the distal transverse colon on axial image 211 of series 202 and sigmoid colon on axial image 104 of series 202 with associated low-level FDG uptake. Note that the area of distal transverse colon thickening is similar to comparison chest CT. Vasculature: No abnormal uptake. Mild systemic atherosclerotic calcification without aortic aneurysm. Lymph nodes: There is a 6 x 4 mm left parotid soft tissue density focus on axial image 331 of series 202 showing SUV max of 4.7 and similar sized posterior periparotid lymph node more inferiorly on axial image 326 of series 202 showing SUV max of 4.1. Skeleton: Chronic appearing left lamina papyracea fracture deformity. Degenerative changes along the axial skeletal system and hips. Soft tissues: Bilateral buttock subcutaneous nodularity with low-level FDG uptake likely on the basis of prior injections. Low-level FDG uptake at the gluteal tendon attachments to the greater tuberosities compatible with tendinopathy. Small fat containing umbilical and bilateral inguinal hernias. PET/PET skull to thigh INIT [id number] IMPRESSION: 1. Non FDG avid anterior right upper lobe nodule with more bandlike morphology suggestive of atelectasis or scarring. Decreased conspicuity may be related to differences in technique. Follow-up chest CT recommended in 6-12 months. 2. Moderately FDG avid 6 mm left parotid gland focus (possibly lymph node versus neoplasm) and more inferior posterior periparotid lymph node. Consider follow-up CT or tissue sampling. 3. Couple areas of mildly FDG avid segmental thickening along the colon. Recommend colonoscopy. 4. Mild sinusitis. 5. Diffuse thyroid gland FDG uptake without discrete nodule is likely inflammatory.
== END 2023-10-24 10:33 | disposition home or self-care (01) ==
PROVIDERS: PCP Family Medicine Adult Medicine; Visit Provider Specialist
DX: R91.1 Solitary pulmonary nodule (principal)
CPT/HCPCS: 78815; A9552

== ENCOUNTER → 2023-10-26 10:56 | Outpatient (BNVA) | payer MEDICAID, SELFPAY ==
[2023-09-20 10:55] VITALS: BP 152/82; BMI 30.7
== END ==
PROVIDERS: PCP Family Medicine Adult Medicine; Visit Provider Nurse Practitioner
DX: M25.531 Pain in right wrist (principal); M19.031 Primary osteoarthritis, right wrist
CPT/HCPCS: 73110

== ENCOUNTER 2023-11-24 07:40 | Outpatient (CLI) | payer MEDICAID, SELFPAY ==
[2023-09-20 10:55] VITALS: BP 152/82; BMI 30.7
--- NOTE | 2023-11-24 07:48 | CT_ITS ---
WS: [id number] CT NECK NONCONTRAST HISTORY: DISORDER OR PITUITARY GLAND,UNSPECIFIED/NODULE ON GLAND TECHNIQUE: Contiguous 2 mm axial images are performed through the neck without intravenous contrast. Sagittal and coronal reformats are also submitted. All CT scans at [facility] use at least on e of these dose optimization techniques: automated exposure control; mA and/or kV adjustment per keaton ent size (includes targeted exams where dose is matched to clinical indication); or iterative reconst ruction. CONTRAST: CONTRAST: None DLP: 262.95 mGy.cm COMPARISON: Head CT 10/24/2023 No soft tissue mass in the nasopharynx or oropharynx or throughout the larynx. No cervical chain lymp hadenopathy. There is small cervical chain lymph nodes which are benign in appearance. Small bilatera l parotid lymph nodes. The PET/CT positive nodule in the LEFT parotid gland appears similar to the ad jacent lymph nodes. There is no large or suspicious mass noted on this unenhanced exam. Normal subman dibular glands. No significant pituitary fullness or expansion of the dorsum sellae. History states pituitary abnorma lity. This study is very limited in its evaluation of the pituitary gland. No inferior displacement o f the cerebellar tonsils. Skull base is negative. RIGHT apical nodule was negative on a PET/CT recently performed. This nodule measures 9 mm. Otherwise paraseptal emphysema. There is an additional nodule on the superior LEFT major fissure measuring 4 m m. Negative thyroid. Near complete opacification RIGHT maxillary sinus. Mild mucoperiosteal thickening LEFT maxillary sinu s. Degenerative disc disease in the cervical spine. CT/CT neck con [id number] IMPRESSION: 1. No pituitary enlargement. Otherwise noncontrast CT evaluation is limited fo r pituitary pathology. 2. The PET/CT positive region in the LEFT pituitary gland is very small and ap pears to be related to a lymph node. There is no discrete mass noted by noncont rast CT. 3. No cervical chain lymphadenopathy. 4. Maxillary sinusitis.
== END 2023-11-24 07:41 | disposition home or self-care (01) ==
LOC: RAD 07:41
PROVIDERS: PCP Family Medicine Adult Medicine; Visit Provider Specialist
DX: J01.00 Acute maxillary sinusitis, unspecified (principal); E23.7 Disorder of pituitary gland, unspecified; R91.8 Other nonspecific abnormal finding of lung field; M50.30 Other cervical disc degeneration, unspecified cervical region
CPT/HCPCS: 70490

== ENCOUNTER → 2023-12-20 13:00 | Outpatient (BNVA) | payer MEDICAID, SELFPAY ==
[2023-09-20 10:55] VITALS: BP 152/82; BMI 30.7
== END ==
PROVIDERS: PCP Family Medicine Adult Medicine; Visit Provider Podiatrist Foot & Ankle Surgery
DX: L60.0 Ingrowing nail (principal); G62.81 Critical illness polyneuropathy; I73.9 Peripheral vascular disease, unspecified; Z79.84 Long term (current) use of oral hypoglycemic drugs; E11.49 Type 2 diabetes mellitus with other diabetic neurological complication
CPT/HCPCS: 11721; 99213

== ENCOUNTER 2024-04-30 16:41 | Emergency (ER) | payer MEDICAID, SELFPAY ==
[2023-09-20 10:55] VITALS: BP 152/82; BMI 30.7
--- NOTE | 2024-04-30 16:44 | XRR_ITS ---
PROCEDURE INFORMATION: Exam: XR Abdomen Exam date and time: 04/30/2024 4:50 PM Age: 48 years old Clinical indication: Constipation TECHNIQUE: Imaging protocol: Radiologic exam of the abdomen. Views: Frontal supine view of the abdomen. 1 View. COMPARISON: PT PET skull to thigh INIT [id number] 10/24/2023 12:59 PM FINDINGS: Gastrointestinal tract: Normal. No bowel dilation. Bones/joints: Unremarkable. XR/XR KUB [id number] IMPRESSION: No acute findings.
[2024-04-30 17:04] VITALS: BP 109/74; PULSE 95; TEMP 36.7; O2SAT 96; BMI 31.1
== END 2024-04-30 19:40 | disposition left against medical advice (07) ==
PROVIDERS: Emergency Provider Family Medicine; PCP Family Medicine Adult Medicine
DX: Z53.21 Procedure and treatment not carried out due to patient leaving prior to being seen by health care provider (principal)
CPT/HCPCS: 74018

== ENCOUNTER 2024-05-02 13:46 | Emergency (ER) | payer MEDICAID, SELFPAY ==
[2023-09-20 10:55] VITALS: BP 152/82; BMI 30.7
[2024-05-02 14:11] VITALS: BP 130/84; PULSE 90; RESP 18; TEMP 36.7; O2SAT 97
--- NOTE | 2024-05-02 14:14 | XRR_ITS ---
PROCEDURE INFORMATION: Exam: XR Abdomen Exam date and time: 05/02/2024 2:52 PM Age: 48 years old Clinical indication: 1 month of constipation TECHNIQUE: Imaging protocol: Radiologic exam of the abdomen. Views: Frontal supine view of the abdomen. 1 View. COMPARISON: CR XR KUB [id number] 04/30/2024 4:50 PM FINDINGS: Gastrointestinal tract: [id number] stool burden. No bowel dilation. Bones/joints: Unremarkable. XR/XR KUB portable [id number] IMPRESSION: No acute findings.
[2024-05-02 17:24] LABS: Bilirubin Urine Negative (Negative); Blood Urine Negative (Negative); Glucose Urine UA Negative (Normal); Ketones Urine Negative (Negative); Leukocyte Esterase Urine Trace (Negative); Nitrate Urine Negative (Negative); Protein Urine 1+ (Negative); Specific Gravity, Urine 1.012 (1.005-1.030); Urine Appearance Clear (CLEAR); Urine Color Yellow (Yellow); pH Urine 6.5 (5-7)
[2024-05-02 17:28] VITALS: BP 134/90; PULSE 79; RESP 16; O2SAT 97
[2024-05-02 17:29] LABS: Add Urine Microscopic? YES; Bacteria Urine None Seen /hpf; RBC Urine 0-2 /hpf (0-2); Squamous Epithelial Cell Urine 0-5 /hpf (0-5); WBC Urine 0-5 /hpf (0-5)
[2024-05-02 17:35] LABS: Add Urine Culture? No
--- NOTE | 2024-05-02 18:24 | W.ED.GENADLT ---
HPI - General Adult General: Chief complaint: General Medical Stated complaint: trouble urinating Time Seen by Provider: 05/02/24 17:08 Source: patient Mode of arrival: ambulatory Limitations: no limitations History of Present Illness: Patient is a 48-year-old male that presents to the emergency department with constipation that has been getting worse over the past month. Patient states he does use methadone and this does constipate him a bit. He states he has tried [id number] medications including MiraLAX and stool softeners that have not helped out. He states he has not taken any magnesium citrate. He reports some intermittent abdominal cramping. He states he did have a colonoscopy a few months ago and had some polyps removed but there was no large growths in there. He denies any fever or chills. He denies any nausea or vomiting. He presents to the emergency department for further evaluation and treatment. Associated symptoms: Deny chest pain, dyspnea, headache(s), nausea, rash or vomiting Related Data Home Medications ?Medication ?Instructions ?Recorded ?Confirmed atorvastatin 40 mg tablet 40 mg PO DAILY 09/12/23 04/10/24 methadone 40 mg soluble tablet 100 mg PO DAILY 04/10/24 04/10/24 Previous Rx's ?Medication ?Instructions ?Recorded diabetic shoes with 3 inserts #1 ea 12/19/22 ondansetron HCl 8 mg tablet 8 mg PO Q12H PRN nausea and 02/07/23 vomiting #10 tabs budesonide-formoterol HFA 160 2 puff inhalation Q12H #10.2 grams 05/24/23 mcg-4.5 mcg/actuation aerosol inhaler (Symbicort) loratadine 10 mg tablet 10 mg PO DAILY PRN cough/PND #30 06/07/23 tabs paliperidone 3 mg tablet,extended 3 mg PO DAILY #7 tabs 07/20/23 release 24 hr (Invega) paliperidone palmitate 234 mg/1.5 234 mg (1.5 mL) IM Q30D #1.5 mL 07/20/23 mL intramuscular syringe (Invega Sustenna) calcium polycarbophil 625 mg 1,250 mg (2 x 625 mg) PO BID 07/25/23 tablet (FiberCon) constipation #120 tabs pantoprazole 40 mg tablet,delayed 40 mg PO BID 6 weeks #84 tabs 08/04/23 release (Protonix) linaclotide 145 mcg capsule 145 mcg PO QAM #30 caps 09/13/23 (Linzess) losartan 100 mg tablet 100 mg PO DAILY high blood 09/19/23 pressure #30 tabs varenicline 1 mg tablet (Chantix) 1 mg PO BID #60 tabs 09/20/23 metformin 500 mg tablet 500 mg PO DAILY #90 tabs 09/28/23 testosterone cypionate 200 mg/mL 200 mg SUBCUT Q14D #1 mL 11/09/23 intramuscular oil (Depo-Testosterone) bupropion HCl 150 mg 24 hr tablet, 150 mg PO QAM #30 tabs 12/28/23 extended release (Wellbutrin XL) albuterol sulfate 90 mcg/actuation 2 puff inhalation QID PRN 02/03/24 aerosol inhaler (Ventolin HFA) shortness of breath or wheezing #8.5 grams prednisone 20 mg tablet 60 mg (3 x 20 mg) PO DAILY 5 days 02/03/24 #15 tabs pregabalin 150 mg capsule 150 mg PO BID #60 caps 03/25/24 hydrocortisone 2.5 % topical cream 1 applic [place] BID PRN hemorrhoids 05/02/24 with perineal applicator #30 grams (Proctosol HC) lactulose 10 gram/15 mL oral 10 g (15 mL) PO BID #237 mL 05/02/24 solution Allergies Allergy/AdvReac Type Severity Reaction Status Date / Time ibuprofen Allergy unknown Verified 04/30/24 17:10 Iodinated Contrast Media Allergy ALGY-Difficulty Verified 04/30/24 17:10 Breathing meperidine (From Demerol) Allergy unknown Verified 04/30/24 17:10 Review of Systems General: Reports: 10 or more systems reviewed and unremarkable except in HPI and below Const: Denies: fever(s) or chills Eyes: Denies: eye discharge or eye redness ENMT: Denies: throat pain or swelling of lips/tongue Card: Denies: chest pain Resp: Denies: dyspnea, productive cough, non-productive cough or wheezing GI: Reports: constipation (With intermittent cramping) and other (Hemorrhoids); Denies: abdominal pain, nausea or vomiting : Denies: difficulty urinating or dysuria Musc: Denies: back pain, extremity pain or extremity swelling Skin/Breast: Denies: rash or erythema Neuro: Denies: headache(s) or numbness in extremities Psych: Denies: anxiety or depression Endo: Denies: polyuria or polydipsia Herb/Lymph: Denies: petechiae All/Imm: Denies: urticaria or throat swelling PFSH ED PFSH: Medical History Generalized anxiety disorder Cannabis dependence, uncomplicated Elevated blood pressure reading in office with diagnosis of hypertension Axillary adenopathy Amphetamine dependence, in remission Family history of colon cancer On combination antipsychotic drug therapy Overdose of antipsychotic Constipation Rectal bleeding Peripheral neuropathy Positive skin test for tuberculosis Opioid dependence Polysubstance (excluding opioids) dependence, daily use tobacco, benzo diazepam, cannabis, opioids, amphetamines and other stimulants COPD (chronic obstructive pulmonary disease) Dyslipidemia associated with type 2 diabetes mellitus Chronic pain after traumatic injury Osteoarthritis involving multiple joints on both sides of body Diabetes mellitus type 2 in obese Pituitary abnormality Adenoma on CT Maxillary fracture, left side, initial encounter for closed fracture Psychiatric care Major depressive disorder, recurrent, moderate Benzodiazepine use agreement exists Low testosterone level in male Essential (primary) hypertension Hernia Schizoaffective disorder, depressive type Surgical History S/P aspiration of joint History of surgery on right wrist Umbilical hernia Family History Mother CAD (coronary artery disease) Hypertension Denies family history of Anesthesia complication Bleeding disorder Social History (Updated 05/02/24 @ 18:32 by LEOLA Felix) Smoking and tobacco/nicotine status: current every day tobacco/nicotine user cigarettes Packs smoked per day: 1 Physical Exam Const: COMMON NORMALS: no acute distress EXAM LIMITATIONS: no altered mental status GENERAL APPEARANCE: cooperative ORIENTATION/CONSCIOUSNESS: Yes awake HENMT: COMMON NORMALS: normocephalic, atraumatic, external ears normal and Normal external nose present HEAD & SCALP: normocephalic and atraumatic NOSE: Normal external nose present EXTERNAL EAR: Yes external ears normal MOUTH: Normal oral and palatal mucosa present Eye: COMMON NORMALS: Equal, round and reactive pupils present and conjunctivae normal CONJUNCTIVA: Yes conjunctivae normal PUPIL: Yes Equal, round and reactive pupils present Neck/C-Spine: COMMON NORMALS: full ROM, supple and no meningeal signs Resp: COMMON NORMALS: normal respiratory effort and clear to auscultation bilaterally EFFORT & INSPECTION: Yes able to speak in complete sentences AUSCULTATION: clear to auscultation bilaterally, no crackles, no rales, no rhonchi and no wheezes Cardio: COMMON NORMALS: regular rate and regular rhythm RATE: regular rate RHYTHM: regular rhythm GI: COMMON NORMALS: Soft to palpation and non-tender AUSCULTATION: Yes Hypoactive bowel sounds present PALPATION: Yes Soft to palpation RECTAL EXAM: Yes deferred Back/Pelvis: COMMON NORMALS: thoraco-lumbar ROM normal Extremity: COMMON NORMALS: normal to inspection and full ROM; negative for no pedal edema Neuro: MENINGEAL SIGNS: Yes no meningeal signs Psych: COMMON NORMALS: mental status grossly normal ATTITUDE: Yes calm Skin: COMMON NORMALS: no rashes or lesions noted GENERAL SKIN EXAM: no rashes or lesions noted Course Vital Signs: Vital signs: Vital Signs Temperature 98.1 F 05/02/24 14:11 Pulse Rate 79 05/02/24 17:28 Respiratory Rate 16 05/02/24 17:28 Blood Pressure 134/90 05/02/24 17:28 Pulse Oximetry 97 05/02/24 17:28 Oxygen Delivery Me thod Room Air 05/02/24 14:11 MDM - General Adult Medical Decision Making Patient was advised of the exam, lab and imaging findings. He does have some constipation noted. He does not appear dehydrated on exam or from his urine sample. The patient states he does use methadone which may be slowing his bowels down. He states he tried [id number] medications without success. We will write the prescription for lactulose for the patient to use as directed. He was given initial dose here tonight. We will also write him for some Preparation H to help with the hemorrhoids that the patient is complaining about. I recommended that he follow-up with his primary care provider for further evaluation and treatment, rest, increase fluids and return to the emergency department with any worsening symptoms. I advised he can use some [id number] enemas and magnesium citrate as directed as well. The patient expressed understanding. Lab Data I reviewed the patient's lab results. Radiology Impressions [facility] X-Ray 05/02/24 14:14 IMPRESSION: No acute findings. Laboratory Results Urine Color Yellow (Yellow) 05/02/24 17:08 Urine Appearance Clear (CLEAR) 05/02/24 17:08 Urine pH 6.5 (5-7) 05/02/24 17:08 Ur Specific Byron 1.012 (1.005-1.030) 05/02/24 17:08 Urine Protein 1+ (Negative) A 05/02/24 17:08 Urine Glucose (UA) Negative (Normal) 05/02/24 17:08 Urine Ketones Negative (Negative) 05/02/24 17:08 Urine Blood Negative (Negative) 05/02/24 17:08 Urine Nitrate Negative (Negative) 05/02/24 17:08 Urine Bilirubin Negative (Negative) 05/02/24 17:08 Urine Urobilinogen 1.0 mg/dL (Negative) 05/02/24 17:08 Ur Leukocyte Esterase Trace (Negative) A 05/02/24 17:08 Urine RBC 0-2 /hpf (0-2) 05/02/24 17:08 Urine WBC 0-5 /hpf (0-5) 05/02/24 17:08 Ur Squamous Epith Cells 0-5 /hpf (0-5) 05/02/24 17:08 Amorphous Sediment Not Reportable 05/02/24 17:08 Urine Bacteria None seen /hpf (NONE) 05/02/24 17:08 Hyaline Casts 3.30 /lpf 05/02/24 17:08 All radiology interpretation(s) finalized by discharge Critical Care Time Critical Care Time: Critical Care Time: No Discharge Plan Discharge Patient Disposition: Home Clinical Impression: Acute constipation Condition: Stable Prescriptions: New hydrocortisone [Proctosol HC] 2.5 % cream with perineal applicator 1 applic [place] BID PRN (Reason: hemorrhoids) Qty: 30 0RF lactulose 10 gram/15 mL solution 10 g PO BID Qty: 237 0RF No Action (DME) diabetic shoes with 3 inserts See Rx Instructions .Route .MEDSUPPLY Qty: 1 0RF Rx Instructions: As directed to the shoe charity ondansetron HCl 8 mg tablet 8 mg PO Q12H PRN (Reason: nausea and vomiting) Qty: 10 0RF FiberCon 625 mg tablet 1,250 mg PO BID Qty: 120 5RF losartan 100 mg tablet 100 mg PO DAILY Qty: 30 5RF varenicline [Chantix] 1 mg tablet 1 mg PO BID Qty: 60 3RF Rx Instructions: 1/2 in AM 7 d, 1 in am 7 d, then 1 AM 1 after lunch methadone 40 mg tablet,soluble 100 mg PO DAILY loratadine 10 mg tablet 10 mg PO DAILY PRN (Reason: cough/PND) Qty: 30 0RF paliperidone [Invega] 3 mg tablet extended release 24hr 3 mg PO DAILY Qty: 7 6RF Rx Instructions: Take one tablet daily week prior to invega injection Invega Sustenna 234 mg/1.5 mL syringe 234 mg IM Q30D Qty: 1.5 12RF Rx Instructions: Monthly injection pantoprazole [Protonix] 40 mg tablet,delayed release (DR/EC) 40 mg PO BID 42 Days Qty: 84 1RF bupropion HCl [Wellbutrin XL] 150 mg tablet extended release 24 hr 150 mg PO QAM Qty: 30 6RF Rx Instructions: Take one tablet every morning prednisone 20 mg tablet 60 mg PO DAILY 5 Days Qty: 15 0RF albuterol sulfate [Ventolin HFA] 90 mcg/actuation HFA aerosol inhaler 2 puff inhalation QID PRN (Reason: shortness of breath or wheezing) Qty: 8.5 0RF budesonide-formoterol [Symbicort] 160-4.5 mcg/actuation HFA aerosol inhaler 2 puff INHALATION Q12H Qty: 10.2 11RF metformin 500 mg tablet 500 mg PO DAILY Qty: 90 3RF testosterone cypionate [Depo-Testosterone] 200 mg/mL oil 200 mg SUBCUT Q14D Qty: 1 5RF pregabalin 150 mg capsule 150 mg PO BID Qty: 60 5RF atorvastatin 40 mg tablet 40 mg PO DAILY Rx Instructions: TAKE 1 TABLET BY MOUTH DAILY Linzess 145 mcg capsule 145 mcg PO QAM Qty: 30 0RF Discharge Orders: Discharge ED (Routine); Ordered 05/02/24 Ordered By: Rosalino Green Referrals: Vlad Hinkle MD [Primary Care Provider] - Discharge Diet: Advance as tolerated Discharge Activity: Resume usual activity Patient Instructions: Opioid Safety, Pain Management, Constipation (ED), Fleet Enema (ED) Activity Restrictions/Additional Instructions: Use the medications as directed. These were sent electronically to your preferred pharmacy. Rest, increase clear fluids. Avoid caffeinated drinks. Follow-up with your doctor in 1 week for recheck. Eat foods that are high in fiber but make sure you drink plenty of water with these foods. Return to the emergency department with any worsening symptoms. Print Language: Australian Coding Level of Care Code ED Voice Pathologist for Dai Arellano
[2024-05-02] MEDS: lactulose oral liq 20 gm/30 mL UDC 10 GM PO (18:27)
== END 2024-05-02 18:47 | disposition home or self-care (01) ==
PROVIDERS: Emergency Medicine; Emergency Provider Physician Assistant; PCP Family Medicine Adult Medicine
DX: K59.00 Constipation, unspecified (principal); Z79.84 Long term (current) use of oral hypoglycemic drugs; F17.210 Nicotine dependence, cigarettes, uncomplicated; J44.9 Chronic obstructive pulmonary disease, unspecified; E78.5 Hyperlipidemia, unspecified; E11.9 Type 2 diabetes mellitus without complications; I10 Essential (primary) hypertension
CPT/HCPCS: 12345; 74018; 81001; 99283; A6446

== ENCOUNTER 2024-05-15 11:24 | Emergency (ER) | payer MEDICAID, SELFPAY ==
[2023-09-20 10:55] VITALS: BP 152/82; BMI 30.7
[2024-05-15 11:28] VITALS: BP 141/85; PULSE 62; RESP 17; TEMP 36.4; O2SAT 97; BMI 31.1
[2024-05-15 11:55] LABS: Basophils # 0.2 10^3/uL (0.0-0.1); Basophils % 1.4 %; Eosinophils # 0.2 10^3/uL (0.0-0.8); Hematocrit 56.9 % (37-53); Lymphocytes # 2.3 10^3/uL (0.8-4.8); Lymphocytes % 19.3 %; Mean Corpuscular HGB Conc 32.7 g/dL (30-55); Mean Corpuscular Hemoglobin 29.8 pg (27-33); Mean Corpuscular Volume 91.2 fl (82-101); Mean Platelet Volume 11.2 fL (7.4-10.4); Monocytes # 0.8 10^3/uL (0.2-0.9); Monocytes % 7.1 %; Neutrophils # 8.22 10^3/uL (1.8-7.7); Neutrophils % 69.9 %; Nucleated Red Blood Cells % 0 %; Platelet Count 301 10^3/cmm (157-399); Red Blood Count 6.24 10^6/uL (3.85-5.65); Red Cell Distribution Width 13.1 % (12.1-15.1); White Blood Count 11.77 10^3/uL (3.29-11.43)
--- NOTE | 2024-05-15 12:13 | XR_ITS ---
WS: [id number] K[facility], AP view, 05/15/2024 Clinical Data: constipation Comparison: [facility], 05/02/2024 Findings: No abnormal intraabdominal masses or calcifications are seen. There is no dilatated small bowel or evidence of obstruction. There is a large amount of fecal material throughout the colon. XR/XR [facility] [id number] Impression: Large amount of fecal material in the colon.
--- NOTE | 2024-05-15 12:14 | ED_ITS ---
HPI - Abdominal Pain 2 General: Chief Complaint: Abdominal Pain Stated Complaint: Constipation Time Seen by Provider: 05/15/24 12:03 Source: patient Mode of arrival: ambulatory Limitations: no limitations History of Present Illness: 48-year-old male has been having abdomin al pain constipation he states over the last 3 weeks states he has not had a bowel movement in over 2 weeks. He has been seen here states he still able have a bowel movement is concerned he is have a bowel blockage. He has got diffuse cramping pain denies any vomiting denies any fever rates pain a 2 out of 10 currently Associated Symptoms: Reports constipation; Denies chills, diarrhea, dysuria, fever(s), nausea and vomiting Related Data Home Medications ?Medication ?Instructions ?Recorded ?Confirmed atorvastatin 40 mg tablet 40 mg PO DAILY 09/12/2304/21 methadone 40 mg soluble tablet 100 mg PO DAILY 5 05/15/24 glycerin (adult) 1 supp IN DAILY PRN Constipa tion 05/15/24 05/15/24 Previous Rx's ?Medication ?Instructions ?Recorded diabetic shoes with 3 inserts #1 ea 12/19/22 budesonide-formoterol HFA 160 2 puff inhalation Q12H # 10.2 grams 05/24/23 mcg-4.5 mcg/actuation aerosol inhaler (Symbicort) loratadine 10 mg tablet 10 mg PO DAILY PRN cough/PND #30 06/07/23 tabs paliperidone 3 mg tablet,extended 3 mg PO DAILY #7 tab s 07/20/23 release 24 hr (Invega) paliperidone palmitate 234 mg/1.5 234 mg (1.5 mL) IM Q 30D #1.5 mL 07/20/23 mL intramuscular syringe (Invega Sustenna) losartan 100 mg tablet 100 mg PO DAILY high blood 0 09/19/23 pressure #30 tabs metformin 500 mg tablet 500 mg PO DAILY #90 tabs 02/10 testosterone cypionate 200 mg/mL 200 mg SUBCUT Q14D #1 mL 11/09/23 intramuscular oil (Depo-Testosterone) albuterol sulfate 90 mcg/actuation 2 puff inhalation Q ID PRN 02/03/24 aerosol inhaler (Ventolin HFA) shortness of breath or wheezing #8.5 grams pregabalin 150 mg capsule 150 mg PO BID #60 caps 03/25 hydrocortisone 2.5 % topical cream 1 applic IN BID PRN hemorrhoids 05/02/24 with perineal applicator #30 grams (Proctosol HC) lactulose 10 gram/15 mL oral 10 g (15 mL) PO BID #237 mL 05/02/24 solution polyethylene glycol 3350 17 gram 17 g PO DAILY PRN con stipation #14 05/15/24 oral powder packet (Miralax) ea Allergies Allergy/AdvReac Type Severity Reaction Status Date / Time ibuprofen Allergy unknown Verified 05/15/24 11:32 Iodinated Contrast Media Allergy ALGY-Difficulty Verified 05/15/24 11:32 Breathing meperidine (From Demerol) Allergy unknown Verified 05/15/24 11:32 Review of Systems 2 Const: Denies: fever(s), chills, body aches or change in appetite ENMT: Denies: throat pain or dental pain Card: Denies: chest pain Resp: Denies: dyspnea GI: Reports: abdominal pain and constipation; Denies: nausea, vomiting or diarrhea : Denies: dysuria Musc: Denies: neck pain or back pain Skin/Breast: Denies: rash Neuro: Denies: headache(s) PFSH ED 2 PFSH: Medical History Generalized anxiety disorder Cannabis dependence, uncomplicated Elevated blood pressure reading in office with diagnosis of hypertension Axillary adenopathy Amphetamine dependence, in remission Family history of colon cancer On combination antipsychotic drug therapy Overdose of antipsychotic Constipation Rectal bleeding Peripheral neuropathy Positive skin test for tuberculosis Opioid dependence Polysubstance (excluding opioids) dependence, daily use tobacco, benzo diazepam, cannabis, opioids, amphetamines and other stimulants COPD (chronic obstructive pulmonary disease) Dyslipidemia associated with type 2 diabetes mellitus Chronic pain after traumatic injury Osteoarthritis involving multiple joints on both sides of body Diabetes mellitus type 2 in obese Pituitary abnormality Adenoma on CT Maxillary fracture, left side, initial encounter for closed fracture Psychiatric care Major depressive disorder, recurrent, moderate Benzodiazepine use agreement exists Low testosterone level in male Essential (primary) hypertension Hernia Schizoaffective disorder, depressive type Surgical History S/P aspiration of joint History of surgery on right wrist Umbilical hernia Family History Mother CAD (coronary artery disease) Hypertension Denies family history of Anesthesia complication Bleeding disorder Social History Smoking and tobacco/nicotine status: current every day tobacco/nicotine user cigarettes Packs smoked per day: 1 Physical Exam 2 Const: COMMON NORMALS: no acute distress, patient oriented x3 and healthy appearing HENMT: COMMON NORMALS: normocephalic and atraumatic HEAD & SCALP: n ormocephalic and atraumatic Eye: COMMON NORMALS: conjunctivae normal CONJUNCTIVA: Yes conjunctivae normal Neck/C-Spine: COMMON NORMALS: full ROM and supple Chest: COMMONS NORMALS: normal inspection of the chest Resp: COMMON NORMALS: normal respiratory effort Cardio: COMMON NORMALS: regular rate, regular rhythm and No murmurs present (Cardio) RATE: regular rate RHYTHM: regular rhythm GI: COMMON NORMALS: Normal to inspection, nondistended, normoactive bowel sounds present, Soft to palpation and no masses PALPATION: Yes Soft to palpation OTHER: mild diffuse tenderness Extremity: COMMON NORMALS: normal to inspection and full ROM Neuro: COMMON NORMALS: patient oriented x3, moves all extremities and no focal motor deficits Psych: COMMON NORMALS: mental status grossly normal, Normal thought process present and cooperative THOUGHT PROCESS: Normal thought process present Skin: COMMON NORMALS: no rashes or lesions noted and no wounds GENERAL SKIN EXAM: no rashes or lesions noted Course 2 Vital Signs: Vital signs: Vital Signs Temperature 97.6 F 05/15/24 11:28 Pulse Rate 99 05/15/24 14:01 Respiratory Rate 17 05/15/24 11:28 Blood Pressure 178/86 05/15/24 14:01 Pulse Oximetry 98 05/15/24 14:01 Oxygen Delivery Me thod Room Air 05/15/24 11:28 MDM - Abdominal Pain Medical Decision Making Patient presents here with constipation CT showed no acute obstruction he has small bowel movement here I did speak to surgeon will give him follow-up with surgery he stable for discharge she is to take MiraLAX at home. Medical Records I reviewed the patient's medical records. Lab Data I reviewed the patient's lab results. 05/15/24 11:50 05/15/24 11:50 Labs/Radiology: Radiology Impressions [facility] X-Ray 05/15/24 12:13 Impression: Large amount of fecal material in the colon. Abdomen/Pelvis CT 05/15/24 12:33 IMPRESSION: 1. Mild fecal retention in the transverse colon. No evidence of high-grade obstruction. Areas of mild segmental narrowing described in the colon on the prior PET/CT. Recommend follow-up with colonoscopy 2. Hepatic steatosis with mild hepatomegaly. 3. Pancreatic calcifications can be seen with chronic pancreatitis. 4. Bilateral renal cysts the largest measuring 3.4 cm in the LEFT. Laboratory Results WBC 11.77 10^3/uL (3.29-11.43) H 05/15/24 11:50 RBC 6.24 10^6/uL (3.85-5.65) H 05/15/24 11:50 Hgb 18.60 g/dL (11.27-16.99) H 05/15/24 11:50 Hct 56.9 % (37-53) H 05/15/24 11:50 MCV 91.2 fl (82-101) 05/15/24 11:50 MCH 29.8 pg (27-33) 05/15/24 11:50 MCHC 32.7 g/dL (30-55) 05/15/24 11:50 RDW 13.1 % (12.1-15.1) 05/15/24 11:50 Plt Count 301 10^3/cmm (157-399) 05/15/24 11:50 MPV 11.2 fL (7.4-10.4) H 05/15/24 11:50 Neut % (Auto) 69.9 % 05/15/24 11:50 Lymph % (Auto) 19.3 % 05/15/24 11:50 Gosper % (Auto) 7.1 % 05/15/24 11:50 Eos % (Auto) 2.0 % 05/15/24 11:50 Baso % (Auto) 1.4 % 05/15/24 11:50 Neut # (Auto) 8.22 10^3/uL (1.8-7.7) H 05/15/24 11:50 Lymph # (Auto) 2.3 10^3/uL (0.8-4.8) 05/15/24 11:50 Gosper # (Auto) 0.8 10^3/uL (0.2-0.9) 05/15/24 11:50 Eos # (Auto) 0.2 10^3/uL (0.0-0.8) 05/15/24 11:50 Baso # (Auto) 0.2 10^3/uL (0.0-0.1) H 05/15/24 11:50 Nucleated RBC % (auto) 0 % 05/15/24 11:50 Nucleated RBCs # 0.0 /100WBC 05/15/24 11:50 Sodium 138 mmol/L (136-145) 05/15/24 11:50 Potassium 4.7 mmol/L (3.5-5.1) 05/15/24 11:50 Chloride 98 mmol/L (98-107) 05/15/24 11:50 Carbon Dioxide 27 mmol/L (22-29) 05/15/24 11:50 Anion Gap 17.7 (5-19) 05/15/24 11:50 BUN 9 mg/dL (6-20) 05/15/24 11:50 Creatinine 1.1 mg/dL (0.7-1.2) 05/15/24 11:50 GFR Calculation 70.9 mL/min (90-130) L 05/15/24 11:50 Glucose 176 mg/dL (65-115) H 05/15/24 11:50 Calculated Osmolality 289 mOsm/kg (285-295) 05/15/24 11:50 Calcium 9.6 mg/dL (8.5-10.5) 05/15/24 11:50 Total Bilirubin 0.3 mg/dL (0.15-1.2) 05/15/24 11:50 AST 20 U/L (0-40) 05/15/24 11:50 ALT 21 U/L (0-41) 05/15/24 11:50 Alkaline Phosphatase 134 U/L (40-130) H 05/15/24 11:50 Total Protein 7.6 g/dL (6.6-8.7) 05/15/24 11:50 Albumin 4.1 g/dL (3.5-5.2) 05/15/24 11:50 Globulin 3.5 g/dL (1.3-4.6) 05/15/24 11:50 Lipase 15 U/L (13-60) 05/15/24 11:50 All radiology interpretation(s) finalized by discharge Discharge Plan Discharge Patient Disposition: Home Clinical Impression: Abdominal pain Constipation Qualifiers: Constipation type: slow transit constipation Qualified Code(s): K59.01 - Slow transit constipation Condition: Stable Prescriptions: New polyethylene glycol 3350 [Miralax] 17 gram powder in packet 17 g PO DAILY PRN (Reason: constipation) Qty: 14 0RF No Action (DME) diabetic shoes with 3 inserts See Rx Instructions .Route .MEDSUPPLY Qty: 1 0RF Rx Instructions: As directed to the shoe charity losartan 100 mg tablet 100 mg PO DAILY Qty: 30 5RF methadone 40 mg tablet,soluble 100 mg PO DAILY loratadine 10 mg tablet 10 mg PO DAILY PRN (Reason: cough/PND) Qty: 30 0RF paliperidone [Invega] 3 mg tablet extended release 24hr 3 mg PO DAILY Qty: 7 6RF Rx Instructions: Take one tablet daily week prior to invega injection Invega Sustenna 234 mg/1.5 mL syringe 234 mg IM Q30D Qty: 1.5 12RF Rx Instructions: Monthly injection albuterol sulfate [Ventolin HFA] 90 mcg/actuation HFA aerosol inhaler 2 puff inhalation QID PRN (Reason: shortness of breath or wheezing) Qty: 8.5 0RF budesonide-formoterol [Symbicort] 160-4.5 mcg/actuation HFA aerosol inhaler 2 puff INHALATION Q12H Qty: 10.2 11RF metformin 500 mg tablet 500 mg PO DAILY Qty: 90 3RF testosterone cypionate [Depo-Testosterone] 200 mg/mL oil 200 mg SUBCUT Q14D Qty: 1 5RF pregabalin 150 mg capsule 150 mg PO BID Qty: 60 5RF hydrocortisone [Proctosol HC] 2.5 % cream with perineal applicator 1 applic IN BID PRN (Reason: hemorrhoids) Qty: 30 0RF lactulose 10 gram/15 mL solution 10 g PO BID Qty: 237 0RF glycerin (adult) [Suppository Adult] Suppository 1 supp IN DAILY PRN (Reason: Constipation) atorvastatin 40 mg tablet 40 mg PO DAILY Rx Instructions: TAKE 1 TABLET BY MOUTH DAILY Discharge Orders: Discharge ED (Routine); Ordered 05/15/24 Ordered By: Pradeep Rebolledo Referrals: Vlad Hinkle MD [Primary Care Provider] - 4-7 days Discharge Diet: Advance as tolerated Discharge Activity: Resume usual activity Patient Instructions: Constipation (ED), Abdominal Pain (ED) Print Language: Uzbek Coding Level of Care Code ED Shift Superintendent Caustic Cresylate for Dai Arellano
[2024-05-15 12:15] LABS: Alanine Aminotransferase 21 U/L (0-41); Albumin Level 4.1 g/dL (3.5-5.2); Alkaline Phosphatase 134 U/L (40-130); Anion Gap 17.7 (5-19); Aspartate Amino Transferase 20 U/L (0-40); Blood Urea Nitrogen 9 mg/dL (6-20); Calcium 9.6 mg/dL (8.5-10.5); Carbon Dioxide 27 mmol/L (22-29); Chloride 98 mmol/L (98-107); Globulin 3.5 g/dL (1.3-4.6); Glomerular Filtration Rate 70.9 mL/min (90-130); Glucose 176 mg/dL (65-115); Lipase 15 U/L (13-60); Osmolality Calculated 289 mOsm/kg (285-295); Potassium 4.7 mmol/L (3.5-5.1); Sodium 138 mmol/L (136-145); Total Bilirubin 0.3 mg/dL (0.15-1.2); Total Protein 7.6 g/dL (6.6-8.7)
--- NOTE | 2024-05-15 12:33 | CT_ITS ---
WS: [id number] CT ABDOMEN PELVIS TECHNIQUE: Noncontrast CT of the abdomen and pelvis with coronal and sagittal reformatted images. CLINICAL INFORMATION: abd pain/constipation DLP: 773.[address] scans at [facility] use at least one of these dose optimization techniques: automated exposure control; mA and/or kV adjustment per patient size (includes targeted exams where dose is matched to clinical indication); or iterative reconstruction. FINDINGS: Hepatic steatosis. Mild hepatomegaly. Lung bases are well aerated. Normal noncontrast spleen. Tiny cyst or hemangioma in the spleen. Fatty atrophy of the pancreas. Pancreatic calcifications. Gallbladder is contracted. Normal GE junction. Normal caliber abdominal aorta. Aortic calcification. Tiny fat- containing umbilical hernia. LEFT adrenal nodule likely adenoma measuring 13 mm. No hydronephrosis in either kidney. Bilateral renal cysts. Normal sigmoid colon. A few diverticuli. Mild fecal retention in the transverse colon. No evidence of high-grade obstruction. No evidence of small bowel obstruction. No free fluid in the abdomen or pelvis. CT/CT abdomen pelvis wo con [id number] IMPRESSION: 1. Mild fecal retention in the transverse colon. No evidence of high-grade obs truction. Areas of mild segmental narrowing described in the colon on the prior PET/CT. Recommend follow-up with colonoscopy 2. Hepatic steatosis with mild hepatomegaly. 3. Pancreatic calcifications can be seen with chronic pancreatitis. 4. Bilateral renal cysts the largest measuring 3.4 cm in the LEFT.
[2024-05-15] MEDS: glycerin adult supp 1 EACH PR (13:04)
--- NOTE | 2024-05-15 13:13 | PC.PHAR ---
Patient states he went to [facility] and picked up his Methadone and took it before coming in.
[2024-05-15 13:39] VITALS: BP 178/86
[2024-05-15 14:01] VITALS: BP 178/86; PULSE 99; O2SAT 98
--- NOTE | 2024-05-16 07:19 | DCPLANNER ---
messaged gen surg for er f/u
== END 2024-05-15 14:04 | disposition home or self-care (01) ==
PROVIDERS: Emergency Provider Emergency Medicine; PCP Family Medicine Adult Medicine
DX: K59.01 Slow transit constipation (principal); R10.9 Unspecified abdominal pain; F17.210 Nicotine dependence, cigarettes, uncomplicated; I10 Essential (primary) hypertension; J44.9 Chronic obstructive pulmonary disease, unspecified; E11.9 Type 2 diabetes mellitus without complications; E78.5 Hyperlipidemia, unspecified
CPT/HCPCS: 36415; 74018; 74176; 80053; 83690; 85025; 99284

== ENCOUNTER 2024-09-30 19:52 | Emergency (ER) | payer MEDICAID, SELFPAY ==
[2023-09-20 10:55] VITALS: BP 152/82; BMI 30.7
[2024-09-30 20:08] VITALS: BP 125/74; PULSE 81; RESP 18; TEMP 36.8; O2SAT 97; BMI 31.1
[2024-09-30 20:39] LABS: Hematocrit 40.2 % (37-53); Hemoglobin 13.30 g/dL (11.27-16.99); Mean Corpuscular HGB Conc 33.1 g/dL (30-55); Mean Corpuscular Hemoglobin 29.1 pg (27-33); Mean Corpuscular Volume 88.0 fl (82-101); Nucleated Red Blood Cells % 0 %; Platelet Count 312 10^3/cmm (157-399); Red Blood Count 4.57 10^6/uL (3.85-5.65); White Blood Count 9.78 10^3/uL (3.29-11.43)
[2024-09-30 21:00] LABS: Alanine Aminotransferase 15 U/L (0-41); Albumin Level 3.6 g/dL (3.5-5.2); Alkaline Phosphatase 110 U/L (40-130); Anion Gap 14.9 (5-19); Aspartate Amino Transferase 15 U/L (0-40); Blood Urea Nitrogen 7 mg/dL (6-20); Calcium 8.5 mg/dL (8.5-10.5); Carbon Dioxide 25 mmol/L (22-29); Chloride 100 mmol/L (98-107); Creatinine Clr Calc Pharmacy 110.3630; Globulin 2.8 g/dL (1.3-4.6); Glucose 133 mg/dL (65-115); Osmolality Calculated 282 mOsm/kg (285-295); Potassium 3.9 mmol/L (3.5-5.1); Sodium 136 mmol/L (136-145); Total Protein 6.4 g/dL (6.6-8.7)
[2024-09-30 21:03] LABS: INR 0.85 (0.8-1.2); Prothrombin Time 12.30 SECONDS (12.1-14.9)
--- NOTE | 2024-09-30 21:38 | ED_ITS ---
HPI - Abdominal Pain 2 General: Chief Complaint: Abdominal Pain Stated Complaint: Bleeding Rectum Time Seen by Provider: 09/30/24 20:37 History of Present Illness: 48-year-old man with a history of chroni c constipation, hypertension, schizoaffective disorder, COPD, hyperlipidemia and diabetes who presents to the emergency room with concern for rectal bleeding. He is also having some left lower quadrant pain. He says he just does not feel right. He says he has been having some constipation. No nausea or vomiting. No fevers. No focal motor deficits. Related Data Home Medications ?Medication ?Instructions ?Recorded ?Confirmed atorvastatin 40 mg tablet 40 mg PO DAILY 09/12/2305/20 methadone 40 mg soluble tablet 100 mg PO DAILY 5 06/17/24 glycerin (adult) 1 supp NE DAILY PRN Constipa tion 05/15/24 06/17/24 Previous Rx's ?Medication ?Instructions ?Recorded diabetic shoes with 3 inserts #1 ea 12/19/22 budesonide-formoterol HFA 160 2 puff inhalation Q12H # 10.2 grams 05/24/23 mcg-4.5 mcg/actuation aerosol inhaler (Symbicort) loratadine 10 mg tablet 10 mg PO DAILY PRN cough/PND #30 06/07/23 tabs paliperidone 3 mg tablet,extended 3 mg PO DAILY #7 tab s 07/20/23 release 24 hr (Invega) losartan 100 mg tablet 100 mg PO DAILY high blood 0 09/19/23 pressure #30 tabs metformin 500 mg tablet 500 mg PO DAILY #90 tabs 02/10 testosterone cypionate 200 mg/mL 200 mg SUBCUT Q14D #1 mL 11/09/23 intramuscular oil (Depo-Testosterone) albuterol sulfate 90 mcg/actuation 2 puff inhalation Q ID PRN 02/03/24 aerosol inhaler (Ventolin HFA) shortness of breath or wheezing #8.5 grams hydrocortisone 2.5 % topical cream 1 applic NE BID PRN hemorrhoids 05/02/24 with perineal applicator #30 grams (Proctosol HC) lactulose 10 gram/15 mL oral 10 g (15 mL) PO BID #237 mL 05/02/24 solution polyethylene glycol 3350 17 gram 17 g PO DAILY PRN con stipation #14 05/15/24 oral powder packet (Miralax) ea paliperidone palmitate 234 mg/1.5 234 mg (1.5 mL) IM Q 30D #1.5 mL 05/20/24 mL intramuscular syringe (Invega Sustenna) pregabalin 150 mg capsule 150 mg PO BID #60 caps 05/23 glycerin (adult) 1 supp NE DAILY PRN constipa tion 09/30/24 #12 ea magnesium citrate 296 ml PO ONCE #296 mL 09/30 polyethylene glycol 3350 17 17 g PO DAILY #510 grams 0 09/30/24 gram/dose oral powder (Miralax) Allergies Allergy/AdvReac Type Severity Reaction Status Date / Time ibuprofen Allergy unknown Verified 06/17/24 10:47 Iodinated Contrast Media Allergy ALGY-Difficulty Verified 06/17/24 10:47 Breathing meperidine (From Demerol) Allergy unknown Verified 06/17/24 10:47 Review of Systems 2 Narrative: Constitutional symptoms: Negative except as documented in HPI. Skin symptoms: Negative except as documented in HPI. Eye symptoms: Negative except as documented in HPI. ENMT symptoms: Negative except as documented in HPI. Respiratory symptoms: Negative except as documented in HPI. Cardiovascular symptoms: Negative except as documented in HPI. Gastrointestinal symptoms: Negative except as documented in HPI. Genitourinary symptoms: Negative except as documented in HPI. Musculoskeletal symptoms: Negative except as documented in HPI. Neurologic symptoms: Negative except as documented in HPI. Psychiatric symptoms: Negative except as documented in HPI. Endocrine symptoms: Negative except as documented in HPI. PFSH ED 2 PFSH: Medical History (Updated 09/30/24 @ 23:55 by Reshma Mathew MD) Generalized anxiety disorder Cannabis dependence, uncomplicated Elevated blood pressure reading in office with diagnosis of hypertension Axillary adenopathy Family history of colon cancer On combination antipsychotic drug therapy Overdose of antipsychotic Constipation Rectal bleeding Peripheral neuropathy Positive skin test for tuberculosis Opioid dependence Polysubstance (excluding opioids) dependence, daily use tobacco, benzo diazepam, cannabis, opioids, amphetamines and other stimulants COPD (chronic obstructive pulmonary disease) Dyslipidemia associated with type 2 diabetes mellitus Chronic pain after traumatic injury Osteoarthritis involving multiple joints on both sides of body Diabetes mellitus type 2 in obese Pituitary abnormality Adenoma on CT Maxillary fracture, left side, initial encounter for closed fracture Psychiatric care Major depressive disorder, recurrent, moderate Benzodiazepine use agreement exists Low testosterone level in male Essential (primary) hypertension Hernia Schizoaffective disorder, depressive type Surgical History S/P aspiration of joint History of surgery on right wrist Umbilical hernia Family History Mother CAD (coronary artery disease) Hypertension Denies family history of Anesthesia complication Bleeding disorder Social History Smoking and tobacco/nicotine status: current every day tobacco/nicotine user cigarettes Packs smoked per day: 1 Physical Exam 2 Narrative: EXAM NARRATIVE: General: Alert, no acute distress. Skin: Warm, dry. Head: Normocephalic, atraumatic. Neck: Supple, trachea midline. Eye: Extraocular movements are intact. Ears, nose, mouth and throat: mucosa moist. Cardiovascular: Regular, Normal peripheral perfusion. Respiratory: Lungs are clear to auscultation, respirations are non-labored, breath sounds are equal, Symmetrical chest wall expansion. Gastrointestinal: Soft, Nontender, Non distended Musculoskeletal: Normal ROM, no deformity. Neurological: Alert and oriented, No focal neurological deficit observed. Psychiatric: Cooperative, appropriate mood & affect. Course 2 Vital Signs: Vital signs: Vital Signs Temperature 98.3 F 09/30/24 20:08 Pulse Rate 60 09/30/24 23:00 Respiratory Rate 16 09/30/24 23:00 Blood Pressure 118/71 09/30/24 23:00 Pulse Oximetry 97 09/30/24 23:00 Oxygen Delivery Me thod Room Air 09/30/24 23:00 MDM - Abdominal Pain Medical Decision Making Medical decision making: Differential diagnosis for a patient who presents with left lower quadrant abdominal pain including but not limited to and based on the above HPI, review of systems and physical exam: Diverticulitis. Constipation Ureterolithiasis. Urinary tract infection. colitis. small bowel obstruction. Crohn's flare. Orders placed to evaluate differential diagnosis based on the above differential, HPI and physical exam Lab Review: Laboratory results were reviewed and interpreted by myself the emergency room physician. No leukocytosis. No anemia. No renal failure. Liver enzymes are normal. CT of the abdomen pelvis without contrast: No acute process. He does have some constipation. This was reviewed and interpreted by myself the emergency room physician. I also reviewed the radiology report. I reviewed the patient's medical record. Reexamination: Patient remained stable. No increased work of breathing. No altered mental status. No focal motor deficits. Assessment and plan: Constipation Rectal bleeding - Discharged home - Discussed plan with patient. Answered any questions. - Evaluation and treatment of this problem were appropriate in the emergency setting. Lab Data 09/30/24 20:33 09/30/24 20:33 Labs/Radiology: Radiology Impressions Abdomen/Pelvis CT 09/30/24 21:41 IMPRESSION: 1. Moderate constipation . No acute abnormality identified otherwise in the abdomen or pelvis. 2. Renal cysts, hepatic steatosis, features of chronic pancreatitis and chronic findings detailed. Laboratory Results WBC 9.78 10^3/uL (3.29-11.43) 09/30/24 20: RBC 4.57 10^6/uL (3.85-5.65) 09/30/24 20:33 Hgb 13.30 g/dL (11.27-16.99) 09/30/24 20: Hct 40.2 % (37-53) 09/30/24 20:33 MCV 88.0 fl (82-101) 09/30/24 20: MCH 29.1 pg (27-33) 09/30/24 20: MCHC 33.1 g/dL (30-55) 09/30/24 20: RDW 13.0 % (12.1-15.1) 09/30/24 20:33 Plt Count 312 10^3/cmm (157-399) 09/30/24 20: MPV 10.8 fL (7.4-10.4) H 09/30/24 20:33 Neut % (Auto) 66.5 % 09/30/24 20:33 Lymph % (Auto) 22.7 % 09/30/24 20:33 [place] % (Auto) 8.1 % 09/30/24 20:33 Eos % (Auto) 1.5 % 09/30/24 20:33 Baso % (Auto) 1.0 % 09/30/24 20:33 Neut # (Auto) 6.50 10^3/uL (1.8-7.7) 09/30/24 20:33 Lymph # (Auto) 2.2 10^3/uL (0.8-4.8) 09/30/24 20:33 [place] # (Auto) 0.8 10^3/uL (0.2-0.9) 09/30/24 20: Eos # (Auto) 0.2 10^3/uL (0.0-0.8) 09/30/24 20: Baso # (Auto) 0.1 10^3/uL (0.0-0.1) 09/30/24 20: Nucleated RBC % (auto) 0 % 09/30/24 20: Nucleated RBCs # 0.0 /100WBC 09/30/24 20: PT 12.30 SECONDS (12.1-14.9) 09/30/24 20: INR 0.85 (0.8-1.2) 09/30/24 20:33 Sodium 136 mmol/L (136-145) 09/30/24 20: Potassium 3.9 mmol/L (3.5-5.1) 09/30/24: Chloride 100 mmol/L (98-107) 09/30/24 20: Carbon Dioxide 25 mmol/L (22-29) 09/30/24 20:33 Anion Gap 14.9 (5-19) 09/30/24 20:33 BUN 7 mg/dL (6-20) 09/30/24 20: Creatinine 1.0 mg/dL (0.7-1.2) 09/30/24 20:33 GFR Calculation 79.1 mL/min (90-130) L 09/30/24: Glucose 133 mg/dL (65-115) H 09/30/24 20: Calculated Osmolality 282 mOsm/kg (285-295) L 09/30/24: Calcium 8.5 mg/dL (8.5-10.5) 09/30/24 20:33 Total Bilirubin 0.2 mg/dL (0.15-1.2) 09/30/24 20: AST 15 U/L (0-40) 09/30/24 20:33 ALT 15 U/L (0-41) 09/30/24 20:33 Alkaline Phosphatase 110 U/L (40-130) 09/30/24 20: Total Protein 6.4 g/dL (6.6-8.7) L 09/30/24 20:33 Albumin 3.6 g/dL (3.5-5.2) 09/30/24 20:33 Globulin 2.8 g/dL (1.3-4.6) 09/30/24 20:33 All radiology interpretation(s) finalized by discharge Discharge Plan Discharge Patient Disposition: Home Clinical Impression: Constipation, Rectal bleed Condition: Stable Prescriptions: New magnesium citrate Solution 296 ml PO ONCE Qty: 296 0RF polyethylene glycol 3350 [Miralax] 17 gram/dose powder 17 g PO DAILY Qty: 510 0RF Rx Instructions: Take 1-2 scoops daily for the next 3 months to keep stools soft glycerin (adult) Suppository 1 supp NE DAILY PRN (Reason: constipation) Qty: 12 0RF No Action (DME) diabetic shoes with 3 inserts See Rx Instructions .Route .MEDSUPPLY Qty: 1 0RF Rx Instructions: As directed to the shoe gujens losartan 100 mg tablet 100 mg PO DAILY Qty: 30 5RF methadone 40 mg tablet,soluble 100 mg PO DAILY loratadine 10 mg tablet 10 mg PO DAILY PRN (Reason: cough/PND) Qty: 30 0RF paliperidone [Invega] 3 mg tablet extended release 24hr 3 mg PO DAILY Qty: 7 6RF Rx Instructions: Take one tablet daily week prior to invega injection albuterol sulfate [Ventolin HFA] 90 mcg/actuation HFA aerosol inhaler 2 puff inhalation QID PRN (Reason: shortness of breath or wheezing) Qty: 8.5 0RF Invega Sustenna 234 mg/1.5 mL syringe 234 mg IM Q30D Qty: 1.5 12RF Rx Instructions: Monthly injection budesonide-formoterol [Symbicort] 160-4.5 mcg/actuation HFA aerosol inhaler 2 puff INHALATION Q12H Qty: 10.2 11RF metformin 500 mg tablet 500 mg PO DAILY Qty: 90 3RF testosterone cypionate [Depo-Testosterone] 200 mg/mL oil 200 mg SUBCUT Q14D Qty: 1 5RF pregabalin 150 mg capsule 150 mg PO BID Qty: 60 5RF hydrocortisone [Proctosol HC] 2.5 % cream with perineal applicator 1 applic NE BID PRN (Reason: hemorrhoids) Qty: 30 0RF lactulose 10 gram/15 mL solution 10 g PO BID Qty: 237 0RF glycerin (adult) [Suppository Adult] Suppository 1 supp NE DAILY PRN (Reason: Constipation) polyethylene glycol 3350 [Miralax] 17 gram powder in packet 17 g PO DAILY PRN (Reason: constipation) Qty: 14 0RF atorvastatin 40 mg tablet 40 mg PO DAILY Rx Instructions: TAKE 1 TABLET BY MOUTH DAILY Discharge Orders: Discharge ED (Routine); Ordered 09/30/24 Ordered By: Reshma Mathew Discharge Diet: Usual diet Discharge Activity: Increase activity as tolerated Patient Instructions: Constipation (ED), Rectal Bleeding (ED), Opioid Safety, Pain Management, Patient Portal & [place] Instructions Activity Restrictions/Additional Instructions: Thank you for choosing [facility] for your healthcare needs today. You have been screened and evaluated and felt safe for discharge. Health conditions do change or evolve sometimes and as such it is important that you follow up with your Primary Doctor to be re checked, 3-5 days is a general good time frame for follow up. You are always welcome to return to the ED for re assessment if your symptoms are worsening or you have new concerns Print Language: [place] Rican Coding Level of Care Code ED Application Design Engineer for Dai Arellano
--- NOTE | 2024-09-30 21:41 | CTR_ITS ---
PROCEDURE INFORMATION: Exam: CT Abdomen And Pelvis Without Contrast Exam date and time: 09/30/2024 10:24 PM Age: 48 years old Clinical indication: Abdominal pain; Localized; Left lower quadrant (llq); Prior surgery; Surgery date: 6+ months; Surgery type: Hernia repair; Additional info: Llq abdominal pain TECHNIQUE: Imaging protocol: Computed tomography of the abdomen and pelvis without contrast. Radiation optimization: All CT scans at this facility use at least one of these dose optimization techniques: automated exposure control; mA and/or kV adjustment per patient size (includes targeted exams where dose is matched to clinical indication); or iterative reconstruction. COMPARISON: CT abdomen pelvis wo con [id number] 05/15/2024 12:50 PM RADIATION DOSE METRICS: Total DLP (mGy-cm): 750.8 FINDINGS: Lungs: Mild strand-like bibasilar atelectasis/scar. Liver: Mild diffuse hepatic steatosis with sparing near the gallbladder fossa again demonstrated similar to 05/15/2024. Similar mild hepatomegaly Gallbladder and biliary ducts: Gallbladder is not dilated. No biliary dilation. Pancreas: Multiple punctate calcification in the pancreatic head and neck compatible with chronic pancreatitis similar to prior, focal lesion of the dilation or inflammatory change otherwise. Spleen: Hyperdensity/calcification is unchanged. No splenomegaly. Adrenal glands: The 5 cm left adrenal nodule of relatively low-density is stable or slightly decreased from the prior study Kidneys and ureters: Previous 3.6 cm exophytic cyst in the interpolar left kidney has significantly decreased, currently 0.9 cm in diameter. Two additional similar exophytic cysts are unchanged. 0.5 cm cyst in the upper pole of the right kidney is unchanged hydronephrosis. Stomach and bowel: Moderate stool retention in the left colon to mid transverse colon. Scattered sigmoid diverticuli without acute inflammatory change. Appendix: Normal appendix caliber. Intraperitoneal space: Unremarkable. No free air. No significant fluid collection. Vasculature: Unremarkable. No abdominal aortic aneurysm. Lymph nodes: Unremarkable. No enlarged lymph nodes. Urinary bladder: Unremarkable as visualized. Reproductive: Unremarkable as visualized. Bones/joints: Mild multilevel degenerative thoracolumbar spondylosis . Soft tissues: Unremarkable. CT/CT abdomen pelvis wo con [id number] IMPRESSION: 1. Moderate constipation . No acute abnormality identified otherwise in the abdomen or pelvis. 2. Renal cysts, hepatic steatosis, features of chronic pancreatitis and chronic findings detailed.
[2024-09-30 21:43] VITALS: BP 118/81; PULSE 58; RESP 16; O2SAT 99
[2024-09-30 23:00] VITALS: BP 118/71; PULSE 60; RESP 16; O2SAT 97
[2024-10-01 00:03] VITALS: BP 142/91; PULSE 60; RESP 16; O2SAT 93
== END 2024-10-01 00:05 | disposition home or self-care (01) ==
PROVIDERS: Emergency Medicine; Emergency Provider Emergency Medicine
DX: K59.00 Constipation, unspecified (principal); K62.5 Hemorrhage of anus and rectum; E78.5 Hyperlipidemia, unspecified; J44.9 Chronic obstructive pulmonary disease, unspecified; I10 Essential (primary) hypertension; E11.42 Type 2 diabetes mellitus with diabetic polyneuropathy; F17.210 Nicotine dependence, cigarettes, uncomplicated; Z79.899 Other long term (current) drug therapy
CPT/HCPCS: 36415; 74176; 80053; 85025; 85610; 99284

== ENCOUNTER 2024-10-07 09:20 | Emergency (ER) | payer MEDICAID, SELFPAY ==
[2023-09-20 10:55] VITALS: BP 152/82; BMI 30.7
[2024-10-07 09:34] VITALS: BP 118/76; PULSE 60; RESP 18; TEMP 36.7; O2SAT 97
--- NOTE | 2024-10-07 09:34 | ECG_ITS ---
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 Measurements Intervals [place] Rate: 60 P: 56 OK: 141 QRS: 14 QRSD: 88 T: 61 QT: 421 QTc: 424 Interpretive Statements SINUS RHYTHM Compared to ECG 09/29/2017 16:07:12 No significant changes Electronically Signed On 10-07-2024 16:59:23 CDT by Laney Riley M.D. [email or web address]
--- NOTE | 2024-10-07 09:38 | XRR_ITS ---
PROCEDURE INFORMATION: Exam: XR Chest Exam date and time: 10/07/2024 9:42 AM Age: 48 years old Clinical indication: Pain; Angina pectoris; --cp ble swelling; Additional info: Chest pain TECHNIQUE: Imaging protocol: Radiologic exam of the chest. Views: 1 view. COMPARISON: 1. CT chest wo con [id number] 09/29/2023 10:19 AM 2. CR XR chest 2V* [id number] 01/12/2023 4:42 PM FINDINGS: Lungs: Lungs are clear. No consolidation. Pleural spaces: No pleural effusion. No pneumothorax. Heart/Mediastinum: Cardiomediastinal silhouette is normal. Bones/joints: No acute abnormality. XR/XR chest 1V portable [id number] IMPRESSION: No acute findings.
[2024-10-07 10:45] LABS: Hematocrit 44.3 % (37-53); Hemoglobin 14.40 g/dL (11.27-16.99); Mean Corpuscular HGB Conc 32.5 g/dL (30-55); Mean Corpuscular Hemoglobin 28.9 pg (27-33); Mean Corpuscular Volume 88.8 fl (82-101); Nucleated Red Blood Cells % 0 %; Platelet Count 341 10^3/cmm (157-399); Red Blood Count 4.99 10^6/uL (3.85-5.65); White Blood Count 13.94 10^3/uL (3.29-11.43)
[2024-10-07 11:09] LABS: Troponin(5th) Baseline 10 ng/L (0-15)
--- NOTE | 2024-10-07 11:14 | ED_ITS ---
HPI - Chest Pain 2 General: Chief Complaint: Chest Pain Stated Complaint: swelling in legs, chest pressure, sob, tingling Time Seen by Provider: 10/07/24 09:50 History of Present Illness: 48-year-old male presents emergency room complaining of swelling in his legs chest pressure and shortness of breath. States has been going on for at least 3 to 4 days. He has not noticed anything that exacerbates or relieves it. He has some mild abdominal cramping which he relates constipations that he has not been able to have a regular bowel movement he denies any hematemesis or coffee-ground emesis. In the past he has had intermittent blood in the stools but none recently no associated shortness of breath or diaphoresis. Associated symptoms: Deny abdominal pain, dyspnea or fever(s) Related Data Home Medications ?Medication ?Instructions ?Recorded ?Confirmed atorvastatin 40 mg tablet 40 mg PO DAILY 09/12/2305/20 methadone 40 mg soluble tablet 100 mg PO DAILY 5 06/17/24 glycerin (adult) 1 supp GA DAILY PRN Constipa tion 05/15/24 06/17/24 Previous Rx's ?Medication ?Instructions ?Recorded diabetic shoes with 3 inserts #1 ea 12/19/22 budesonide-formoterol HFA 160 2 puff inhalation Q12H # 10.2 grams 05/24/23 mcg-4.5 mcg/actuation aerosol inhaler (Symbicort) loratadine 10 mg tablet 10 mg PO DAILY PRN cough/PND #30 06/07/23 tabs paliperidone 3 mg tablet,extended 3 mg PO DAILY #7 tab s 07/20/23 release 24 hr (Invega) losartan 100 mg tablet 100 mg PO DAILY high blood 0 09/19/23 pressure #30 tabs metformin 500 mg tablet 500 mg PO DAILY #90 tabs 02/10 testosterone cypionate 200 mg/mL 200 mg SUBCUT Q14D #1 mL 11/09/23 intramuscular oil (Depo-Testosterone) albuterol sulfate 90 mcg/actuation 2 puff inhalation Q ID PRN 02/03/24 aerosol inhaler (Ventolin HFA) shortness of breath or wheezing #8.5 grams hydrocortisone 2.5 % topical cream 1 applic GA BID PRN hemorrhoids 05/02/24 with perineal applicator #30 grams (Proctosol HC) lactulose 10 gram/15 mL oral 10 g (15 mL) PO BID #237 mL 05/02/24 solution polyethylene glycol 3350 17 gram 17 g PO DAILY PRN con stipation #14 05/15/24 oral powder packet (Miralax) ea paliperidone palmitate 234 mg/1.5 234 mg (1.5 mL) IM Q 30D #1.5 mL 05/20/24 mL intramuscular syringe (Invega Sustenna) pregabalin 150 mg capsule 150 mg PO BID #60 caps 05/23 glycerin (adult) 1 supp GA DAILY PRN constipa tion 09/30/24 #12 ea magnesium citrate 296 ml PO ONCE #296 mL 09/30 polyethylene glycol 3350 17 17 g PO DAILY #510 grams 0 09/30/24 gram/dose oral powder (Miralax) Allergies Allergy/AdvReac Type Severity Reaction Status Date / Time ibuprofen Allergy unknown Verified 06/17/24 10:47 Iodinated Contrast Media Allergy ALGY-Difficulty Verified 06/17/24 10:47 Breathing meperidine (From Demerol) Allergy unknown Verified 06/17/24 10:47 Review of Systems 2 Const: Denies: fever(s) or chills Card: Reports: chest pain Resp: Denies: dyspnea GI: Reports: constipation; Denies: abdominal pain : Denies: dysuria, urinary frequency or urinary urgency Musc: Denies: neck pain or back pain Skin/Breast: Denies: rash PFSH ED 2 PFSH: Medical History Generalized anxiety disorder Cannabis dependence, uncomplicated Elevated blood pressure reading in office with diagnosis of hypertension Axillary adenopathy Family history of colon cancer On combination antipsychotic drug therapy Overdose of antipsychotic Constipation Rectal bleeding Peripheral neuropathy Positive skin test for tuberculosis Opioid dependence Polysubstance (excluding opioids) dependence, daily use tobacco, benzo diazepam, cannabis, opioids, amphetamines and other stimulants COPD (chronic obstructive pulmonary disease) Dyslipidemia associated with type 2 diabetes mellitus Chronic pain after traumatic injury Osteoarthritis involving multiple joints on both sides of body Diabetes mellitus type 2 in obese Pituitary abnormality Adenoma on CT Maxillary fracture, left side, initial encounter for closed fracture Psychiatric care Major depressive disorder, recurrent, moderate Benzodiazepine use agreement exists Low testosterone level in male Essential (primary) hypertension Hernia Schizoaffective disorder, depressive type Surgical History S/P aspiration of joint History of surgery on right wrist Umbilical hernia Family History Mother CAD (coronary artery disease) Hypertension Denies family history of Anesthesia complication Bleeding disorder Social History Smoking and tobacco/nicotine status: current every day tobacco/nicotine user cigarettes Packs smoked per day: 1 Physical Exam 2 Const: GENERAL APPEARANCE: cooperative ORIENTATION/CONSCIOUSNESS: Yes awake, Yes oriented to person, Yes oriented to place and Yes oriented to time HENMT: COMMON NORMALS: normocephalic, atraumatic and hearing grossly normal bilaterally HEAD & SCALP: normocephalic and atraumatic Resp: COMMON NORMALS: normal respiratory effort, No retractions, No use of accessory muscles and clear to auscultation bilaterally AUSCULTATION: clear to auscultation bilaterally Cardio: COMMON NORMALS: regular rate, regular rhythm and No murmurs present (Cardio) RATE: regular rate RHYTHM: regular rhythm GI: COMMON NORMALS: Soft to palpation and No hepatosplenomegaly present A USCULTATION: Yes normoactive bowel sounds PALPATION: Yes Soft to palpation, No Tenderness to palpation present (GI), No Guarding due to palpation present (GI) and Yes No hepatosplenomegaly present Extremity: COMMON NORMALS: normal to inspection, capillary refill normal, no clubbing, cyanosis or edema, no calf tenderness and no pedal edema Neuro: SENSORIUM/ORIENTATION: Yes oriented to person, Yes oriented to place and Yes oriented to time Skin: COMMON NORMALS: no rashes or lesions noted GENERAL SKIN EXAM: no rashes or lesions noted Course 2 Vital Signs: Vital signs: Vital Signs Temperature 98.1 F 10/07/24 09:34 Pulse Rate 67 10/07/24 13:29 Respiratory Rate 16 10/07/24 13:29 Blood Pressure 137/80 10/07/24 13:29 Pulse Oximetry 98 10/07/24 13:29 MDM - Chest Pain Medical Decision Making Cardiac enzyme negative EKG did not show any acute changes. Discharge home follow-up with primary care doctor. Mild constipation as well. Use [id number] laxatives. Medical Records I reviewed the patient's medical records. Lab Data I reviewed the patient's lab results. 10/07/24 10:35 10/07/24 10:35 Radiology Impressions Chest X-Ray 10/07/24 09:38 IMPRESSION: No acute findings. Laboratory Results WBC 13.94 10^3/uL (3.29-11.43) H 10/07/24 10:35 RBC 4.99 10^6/uL (3.85-5.65) 10/07/24 10:35 Hgb 14.40 g/dL (11.27-16.99) 10/07/24 10:35 Hct 44.3 % (37-53) 10/07/24 10:35 MCV 88.8 fl (82-101) 10/07/24 10:35 MCH 28.9 pg (27-33) 10/07/24 10:35 MCHC 32.5 g/dL (30-55) 10/07/24 10:35 RDW 12.8 % (12.1-15.1) 10/07/24 10:35 Plt Count 341 10^3/cmm (157-399) 10/07/24 10:35 MPV 10.7 fL (7.4-10.4) H 10/07/24 10:35 Neut % (Auto) 67.0 % 10/07/24 10:35 Lymph % (Auto) 19.4 % 10/07/24 10:35 Gilliam % (Auto) 10.7 % 10/07/24 10:35 Eos % (Auto) 1.6 % 10/07/24 10:35 Baso % (Auto) 0.9 % 10/07/24 10:35 Neut # (Auto) 9.32 10^3/uL (1.8-7.7) H 10/07/24 10:35 Lymph # (Auto) 2.7 10^3/uL (0.8-4.8) 10/07/24 10:35 Gilliam # (Auto) 1.5 10^3/uL (0.2-0.9) H 10/07/24 10:35 Eos # (Auto) 0.2 10^3/uL (0.0-0.8) 10/07/24 10:35 Baso # (Auto) 0.1 10^3/uL (0.0-0.1) 10/07/24 10:35 Nucleated RBC % (auto) 0 % 10/07/24 10:35 Nucleated RBCs # 0.0 /100WBC 10/07/24 10:35 Sodium 136 mmol/L (136-145) 10/07/24 10:35 Potassium 4.5 mmol/L (3.5-5.1) 10/07/24 10:35 Chloride 98 mmol/L (98-107) 10/07/24 10:35 Carbon Dioxide 27 mmol/L (22-29) 10/07/24 10:35 Anion Gap 15.5 (5-19) 10/07/24 10:35 BUN 11 mg/dL (6-20) 10/07/24 10:35 Creatinine 1.2 mg/dL (0.7-1.2) 10/07/24 10:35 GFR Calculation 64.1 mL/min (90-130) L 10/07/24 10:35 Glucose 78 mg/dL (65-115) 10/07/24 10:35 Calculated Osmolality 280 mOsm/kg (285-295) L 10/07/24 10:35 Calcium 9.2 mg/dL (8.5-10.5) 10/07/24 10:35 Total Bilirubin 0.2 mg/dL (0.15-1.2) 10/07/24 10:35 AST 23 U/L (0-40) 10/07/24 10:35 ALT 20 U/L (0-41) 10/07/24 10:35 Alkaline Phosphatase 128 U/L (40-130) 10/07/24 10:35 Troponin T Baseline 10 ng/L (0-15) 10/07/24 10:35 Troponin T 120 Minute 9.13 ng/L (0-15) 10/07/24 12:29 Delta Troponin T -0.87 ABS# (0-10) L 10/07/24 12:29 NT-Pro-B Natriuret Pep 95 pg/mL (0-125) 10/07/24 10:35 Total Protein 6.8 g/dL (6.6-8.7) 10/07/24 10:35 Albumin 4.1 g/dL (3.5-5.2) 10/07/24 10:35 Globulin 2.7 g/dL (1.3-4.6) 10/07/24 10:35 All radiology interpretation(s) finalized by discharge EKG Data EKG 1: Interpretation: EKG 10/07/2024 9:34 AM. Normal sinus rhythm rate 60 GA interval 141 QTc [address] changes noted no ST elevation or depression. EKG compared to 09/29/2018 unchanged EKG 2: Interpretation: EKG 10/07/2024 sinus bradycardia rate 54 GA interval 151 QTc 434.. EKG earlier the same day no acute changes. No ST elevation no T wave inversion Discharge Plan Discharge Patient Disposition: Home Clinical Impression: Atypical chest pain, Constipation Condition: Stable Prescriptions: No Action (DME) diabetic shoes with 3 inserts See Rx Instructions .Route .MEDSUPPLY Qty: 1 0RF Rx Instructions: As directed to the shoe charity losartan 100 mg tablet 100 mg PO DAILY Qty: 30 5RF methadone 40 mg tablet,soluble 100 mg PO DAILY loratadine 10 mg tablet 10 mg PO DAILY PRN (Reason: cough/PND) Qty: 30 0RF paliperidone [Invega] 3 mg tablet extended release 24hr 3 mg PO DAILY Qty: 7 6RF Rx Instructions: Take one tablet daily week prior to invega injection albuterol sulfate [Ventolin HFA] 90 mcg/actuation HFA aerosol inhaler 2 puff inhalation QID PRN (Reason: shortness of breath or wheezing) Qty: 8.5 0RF Invega Sustenna 234 mg/1.5 mL syringe 234 mg IM Q30D Qty: 1.5 12RF Rx Instructions: Monthly injection budesonide-formoterol [Symbicort] 160-4.5 mcg/actuation HFA aerosol inhaler 2 puff INHALATION Q12H Qty: 10.2 11RF metformin 500 mg tablet 500 mg PO DAILY Qty: 90 3RF testosterone cypionate [Depo-Testosterone] 200 mg/mL oil 200 mg SUBCUT Q14D Qty: 1 5RF pregabalin 150 mg capsule 150 mg PO BID Qty: 60 5RF hydrocortisone [Proctosol HC] 2.5 % cream with perineal applicator 1 applic GA BID PRN (Reason: hemorrhoids) Qty: 30 0RF lactulose 10 gram/15 mL solution 10 g PO BID Qty: 237 0RF glycerin (adult) [Suppository Adult] Suppository 1 supp GA DAILY PRN (Reason: Constipation) polyethylene glycol 3350 [Miralax] 17 gram powder in packet 17 g PO DAILY PRN (Reason: constipation) Qty: 14 0RF atorvastatin 40 mg tablet 40 mg PO DAILY Rx Instructions: TAKE 1 TABLET BY MOUTH DAILY magnesium citrate Solution 296 ml PO ONCE Qty: 296 0RF polyethylene glycol 3350 [Miralax] 17 gram/dose powder 17 g PO DAILY Qty: 510 0RF Rx Instructions: Take 1-2 scoops daily for the next 3 months to keep stools soft glycerin (adult) Suppository 1 supp GA DAILY PRN (Reason: constipation) Qty: 12 0RF Discharge Orders: Discharge ED (Routine); Ordered 10/07/24 Ordered By: Troy Trammell Patient Instructions: Opioid Safety, Pain Management, Patient Portal & [facility]el[facility] Instructions Activity Restrictions/Additional Instructions: Thank you for choosing [facility] for your healthcare needs today. It is very important that you follow up as instructed or that you return to the Emergency Department should you have concerns or if your condition changes or worsens in any way. You are seen in the emergency room with complaint of chest discomfort and constipation your cardiac enzymes and EKG were normal. Chest x-ray was also normal. Suspect your chest discomfort is noncardiac in nature follow-up with your primary care doctor. You are given lactulose to eat use for relief of constipation. Print Language: Croatian Coding Level of Care Code ED Diagrammer And Seamer for Dai Arellano
--- NOTE | 2024-10-07 11:38 | ECG_ITS ---
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 Measurements Intervals [place] Rate: 54 P: 15 RI: 151 QRS: 55 QRSD: 93 T: 16 QT: 454 QTc: 434 Interpretive Statements SINUS BRADYCARDIA POSSIBLE INFERIOR MYOCARDIAL INFARCTION , PROBABLY OLD [30 ms Q WAVE IN II/aVF] Compared to ECG 10/07/2024 09:34:54 Myocardial infarct finding now present Sinus rhythm no longer present Electronically Signed On 10-07-2024 17:08:34 CDT by Laney Riley M.D. [email or web address]
[2024-10-07 11:47] LABS: Alanine Aminotransferase 20 U/L (0-41); Albumin Level 4.1 g/dL (3.5-5.2); Alkaline Phosphatase 128 U/L (40-130); Anion Gap 15.5 (5-19); Aspartate Amino Transferase 23 U/L (0-40); Blood Urea Nitrogen 11 mg/dL (6-20); Calcium 9.2 mg/dL (8.5-10.5); Carbon Dioxide 27 mmol/L (22-29); Chloride 98 mmol/L (98-107); Creatinine Clr Calc Pharmacy 91.9692; Globulin 2.7 g/dL (1.3-4.6); Glucose 78 mg/dL (65-115); NT Pro B Type Natriuretic Pept 95 pg/mL (0-125); Osmolality Calculated 280 mOsm/kg (285-295); Potassium 4.5 mmol/L (3.5-5.1); Sodium 136 mmol/L (136-145); Total Protein 6.8 g/dL (6.6-8.7)
[2024-10-07 11:53] VITALS: BP 159/99; PULSE 55; RESP 16; O2SAT 96
[2024-10-07 12:11] VITALS: BP 159/99; PULSE 56; RESP 17; O2SAT 94
[2024-10-07 13:01] LABS: Troponin 5 2HR 9.13 ng/L (0-15)
[2024-10-07 13:04] LABS: Troponin 5 2HR Delta -0.87 ABS# (0-10)
[2024-10-07 13:29] VITALS: BP 137/80; PULSE 67; RESP 16; O2SAT 98
== END 2024-10-07 13:30 | disposition home or self-care (01) ==
PROVIDERS: Physician Assistant; Emergency Provider Family Medicine
DX: R07.89 Other chest pain (principal); K59.00 Constipation, unspecified; Z79.84 Long term (current) use of oral hypoglycemic drugs; F17.210 Nicotine dependence, cigarettes, uncomplicated; J44.9 Chronic obstructive pulmonary disease, unspecified; E78.5 Hyperlipidemia, unspecified; E11.9 Type 2 diabetes mellitus without complications
CPT/HCPCS: 36415; 71045; 80053; 83880; 84484; 85025; 93005; 99285

== ENCOUNTER 2025-02-22 17:49 | Emergency (ER) | payer MEDICAID, SELFPAY ==
[2023-09-20 10:55] VITALS: BP 152/82; BMI 30.7
[2025-02-22] VITALS (7 sets, daily range): BP systolic 135–214; BP diastolic 75–117; PULSE 62–119; RESP 16–25; TEMP 36.6; O2SAT 96–100; BMI 29.1
[2025-02-22 18:35] LABS: Hematocrit 41.1 % (37-53); Hemoglobin 13.70 g/dL (11.27-16.99); Mean Corpuscular HGB Conc 33.3 g/dL (30-55); Mean Corpuscular Hemoglobin 28.5 pg (27-33); Mean Corpuscular Volume 85.4 fl (82-101); Nucleated Red Blood Cells % 0 %; Platelet Count 277 10^3/cmm (157-399); Red Blood Count 4.81 10^6/uL (3.85-5.65); White Blood Count 10.60 10^3/uL (3.29-11.43)
[2025-02-22 18:50] LABS: Glucose Urine UA Negative (Normal); Nitrate Urine Negative (Negative); Specific Gravity, Urine 1.014 (1.005-1.030)
--- NOTE | 2025-02-22 18:53 | W.ED.ABDPA2 ---
HPI - Abdominal Pain General: Chief Complaint: Abdominal Pain Stated Complaint: L side ABD Pain Lightheaded Time Seen by Provider: 02/22/25 18:07 History of Present Illness: Patient is a 49yo male presenting with constipation for approximately one month. He reports worsening left-sided abdominal pain that began this morning at 6 AM. The patient states he has not had a complete bowel movement for a month, though he had a partial bowel movement today. He took magnesium (likely a laxative) yesterday to help with constipation. The pain has persisted and worsened since his first bowel movement today. Patient describes feeling 'weird' but cannot elaborate further on these sensations. He denies significant nausea but mentions poor appetite. He reports a history of rectal bleeding in the past, though none currently. Patient reports being 'thirsty as hell' and minimal urination today. Per accompanying person, this has been a recurrent issue for the past year that has progressively worsened, with the patient often delaying seeking medical attention until symptoms become severe. Review of records reveals a colonoscopy that was essentially normal 09/10 he had 2 CTs previously this year. Both noncontrast, as he has significant contrast allergy Related Data Home Medications ?Medication ?Instructions ?Recorded ?Confirmed atorvastatin 40 mg tablet 40 mg PO DAILY 09/12/23 01/18/25 methadone 40 mg soluble tablet 100 mg PO DAILY 04/10/24 01/18/25 Previous Rx's ?Medication ?Instructions ?Recorded diabetic shoes with 3 inserts #1 ea 12/19/22 budesonide-formoterol HFA 160 2 puff inhalation Q12H #10.2 grams 05/24/23 mcg-4.5 mcg/actuation aerosol inhaler (Symbicort) loratadine 10 mg tablet 10 mg PO DAILY PRN cough/PND #30 06/07/23 tabs paliperidone 3 mg tablet,extended 3 mg PO DAILY #7 tabs 07/20/23 release 24 hr (Invega) losartan 100 mg tablet 100 mg PO DAILY high blood 09/19/23 pressure #30 tabs metformin 500 mg tablet 500 mg PO DAILY #90 tabs 09/28/23 testosterone cypionate 200 mg/mL 200 mg SUBCUT Q14D #1 mL 11/09/23 intramuscular oil (Depo-Testosterone) albuterol sulfate 90 mcg/actuation 2 puff inhalation QID PRN 02/03/24 aerosol inhaler (Ventolin HFA) shortness of breath or wheezing #8.5 grams hydrocortisone 2.5 % topical cream 1 applic ME BID PRN hemorrhoids 05/02/24 with perineal applicator #30 grams (Proctosol HC) lactulose 10 gram/15 mL oral 10 g (15 mL) PO BID #237 mL 05/02/24 solution polyethylene glycol 3350 17 gram 17 g PO DAILY PRN constipation #14 05/15/24 oral powder packet (Miralax) ea paliperidone palmitate 234 mg/1.5 234 mg (1.5 mL) IM Q30D #1.5 mL 05/20/24 mL intramuscular syringe (Invega Sustenna) pregabalin 150 mg capsule 150 mg PO BID #60 caps 05/23/24 glycerin (adult) 1 supp ME DAILY PRN constipation 09/30/24 #12 ea magnesium citrate 296 ml PO ONCE #296 mL 09/30/24 polyethylene glycol 3350 17 17 g PO DAILY #510 grams 09/30/24 gram/dose oral powder (Miralax) amoxicillin 875 mg-potassium 1 tab PO BID #14 tabs 01/18/25 clavulanate 125 mg tablet ondansetron HCl 4 mg tablet 4 mg PO Q8H PRN nausea and 01/18/25 vomiting #10 tabs lactulose 10 gram/15 mL oral 20 g (30 mL) PO TID #1,200 mL 02/22/25 solution Allergies Allergy/AdvReac Type Severity Reaction Status Date / Time ibuprofen Allergy unknown Verified 02/22/25 18:01 Iodinated Contrast Media Allergy ALGY-Difficulty Verified 02/22/25 18:01 Breathing meperidine (From Demerol) Allergy unknown Verified 02/22/25 18:01 [facility] PFS: Medical History Generalized anxiety disorder Cannabis dependence, uncomplicated Elevated blood pressure reading in office with diagnosis of hypertension Axillary adenopathy Family history of colon cancer On combination antipsychotic drug therapy Overdose of antipsychotic Constipation Rectal bleeding Peripheral neuropathy Positive skin test for tuberculosis Opioid dependence Polysubstance (excluding opioids) dependence, daily use tobacco, benzo diazepam, cannabis, opioids, amphetamines and other stimulants COPD (chronic obstructive pulmonary disease) Dyslipidemia associated with type 2 diabetes mellitus Chronic pain after traumatic injury Osteoarthritis involving multiple joints on both sides of body Diabetes mellitus type 2 in obese Pituitary abnormality Adenoma on CT Maxillary fracture, left side, initial encounter for closed fracture Psychiatric care Major depressive disorder, recurrent, moderate Benzodiazepine use agreement exists Low testosterone level in male Essential (primary) hypertension Hernia Schizoaffective disorder, depressive type Surgical History S/P aspiration of joint History of surgery on right wrist Umbilical hernia Family History Mother CAD (coronary artery disease) Hypertension Denies family history of Anesthesia complication Bleeding disorder Social History Smoking and tobacco/nicotine status: never used tobacco/nicotine Second hand smoke exposure: Yes Alcohol intake: never Substance/Drug Use: former Date of last use: 4 Months Former substance use details: Meth. Physical Exam Const: COMMON NORMALS: no acute distress GENERAL APPEARANCE: cooperative; not ill appearing and not frail appearing HENMT: COMMON NORMALS: normocephalic, atraumatic and Normal external nose present HEAD & SCALP: normocephalic and atraumatic FACE & SINUS: normal facial exam and face symmetric NOSE: Normal external nose present Eye: COMMON NORMALS: Equal, round and reactive pupils present and EOMs intact bilaterally PUPIL: Yes Equal, round and reactive pupils present Neck/C-Spine: GENERAL: Yes trachea midline Chest: CHEST: Yes Symmetrical chest wall rise Resp: COMMON NORMALS: normal respiratory effort, No retractions, No use of accessory muscles and clear to auscultation bilaterally AUSCULTATION: clear to auscultation bilaterally Cardio: COMMON NORMALS: regular rate and regular rhythm RATE: regular rate RHYTHM: regular rhythm GI: COMMON NORMALS: Normal to inspection, nondistended, normoactive bowel sounds present PALPATION: Yes Tenderness to palpation present (GI) Details: LLQ Extremity: COMMON NORMALS: no pedal edema Neuro: SHREYAS COMA SCALE: document GCS findings Shreyas coma scale eye opening: Spontaneous Lockhart coma scale verbal response: Orientated Lockhart coma scale motor response: Obey commands Lockhart coma scale total score: 15 SENSORY EXAM: Yes extremities (intact) Psych: COMMON NORMALS: speech normal SPEECH: Yes normal speech Skin: COMMON NORMALS: no rashes or lesions noted GENERAL SKIN EXAM: no rashes or lesions noted Course Vital Signs: Vital signs: Vital Signs Temperature 98 F 02/22/25 17:54 Pulse Rate 71 02/22/25 21:09 Respiratory Rate 18 02/22/25 21:09 Blood Pressure 181/90 02/22/25 21:09 Pulse Oximetry 100 02/22/25 21:09 Oxygen Delivery Me thod Room Air 02/22/25 17:54 MDM - Abdominal Pain Medical Decision Making Patient has been quite hypertensive here. He did not start out this way. Somewhat strange. He is given Vasotec and labetalol for this. Heart rates in the 60s. CBC is normal. Creatinine is 1.3. Other laboratory is not remarkable. Urinalysis is negative. Abdominal CT is nonacute. No bowel obstruction, mass, etc. He will be discharged on lactulose. Further outpatient workup. He should see his physician regarding his blood pressure Lab Data 02/22/25 18:27 02/22/25 18:27 Labs/Radiology: Radiology Impressions Abdomen/Pelvis CT 02/22/25 19:00 IMPRESSION: 1. No acute intra-abdominal or pelvic pathology. 2. Sigmoid diverticulosis. No evidence for acute diverticulitis. 3. Small left renal cyst. COMMENTS: Consistent with the [employer] [place] [employer]'s Incidental Findings Committee white paper (J Am Yani Radiol 2018): Any incidental renal lesion less than 1 cm or classified as too small to characterize, or any incidental cystic renal lesion characterized as simple-appearing, is likely benign. No follow-up imaging is recommended for these lesions per consensus recommendations based on imaging criteria. Laboratory Results WBC 10.60 10^3/uL (3.29-11.43) 02/22/25 18: RBC 4.81 10^6/uL (3.85-5.65) 02/22/25 18:27 Hgb 13.70 g/dL (11.27-16.99) 02/22/25 18: Hct 41.1 % (37-53) 02/22/25 18: MCV 85.4 fl (82-101) 02/22/25 18:27 MCH 28.5 pg (27-33) 02/22/25 18: MCHC 33.3 g/dL (30-55) 02/22/25 18: RDW 13.2 % (12.1-15.1) 02/22/25 18:27 Plt Count 277 10^3/cmm (157-399) 02/22/25 18: MPV 10.5 fL (7.4-10.4) H 02/22/25 18:27 Neut % (Auto) 63.8 % 02/22/25 18:27 Lymph % (Auto) 23.7 % 02/22/25 18:27 Wilkinson % (Auto) 9.7 % 02/22/25 18:27 Eos % (Auto) 1.5 % 02/22/25 18:27 Baso % (Auto) 1.0 % 02/22/25 18:27 Neut # (Auto) 6.76 10^3/uL (1.8-7.7) 02/22/25 18:27 Lymph # (Auto) 2.5 10^3/uL (0.8-4.8) 02/22/25 18:27 Wilkinson # (Auto) 1.0 10^3/uL (0.2-0.9) H 02/22/25 18:27 Eos # (Auto) 0.2 10^3/uL (0.0-0.8) 02/22/25 18:27 Baso # (Auto) 0.1 10^3/uL (0.0-0.1) 02/22/25 18:27 Nucleated RBC % (auto) 0 % 02/22/25 18: Nucleated RBCs # 0.0 /100WBC 02/22/25 18:27 Sodium 136 mmol/L (136-145) 02/22/25 18:27 Potassium 4.5 mmol/L (3.5-5.1) 02/22/25 18:27 Chloride 99 mmol/L (98-107) 02/22/25 18:27 Carbon Dioxide 27 mmol/L (22-29) 02/22/25 18:27 Anion Gap 14.5 (5-19) 02/22/25 18:27 BUN 19 mg/dL (6-20) 02/22/25 18:27 Creatinine 1.3 mg/dL (0.7-1.2) H 02/22/25 18:27 GFR Calculation 58.2 mL/min (90-130) L 02/22/25 18:27 Glucose 98 mg/dL (65-115) 02/22/25 18: Calculated Osmolality 284 mOsm/kg (285-295) L 02/22/25 18: Lactic Acid 0.8 mmol/L (0.5-2.2) 02/22/25 18: Calcium 8.8 mg/dL (8.5-10.5) 02/22/25 18: Total Bilirubin 0.3 mg/dL (0.15-1.2) 02/22/25 18: AST 16 U/L (0-40) 02/22/25 18: ALT 14 U/L (0-41) 02/22/25 18: Alkaline Phosphatase 115 U/L (40-130) 02/22/25 18: C-Reactive Protein 21.2 mg/L (0.0-4.9) H 02/22/25 18: Total Protein 6.6 g/dL (6.6-8.7) 02/22/25 18: Albumin 3.9 g/dL (3.5-5.2) 02/22/25 18: Globulin 2.7 g/dL (1.3-4.6) 02/22/25 18: Lipase 26 U/L (13-60) 02/22/25 18: Urine Color Yellow (Yellow) 02/22/25 18: Urine Appearance Clear (CLEAR) 02/22/25 18: Urine pH 7.0 (5-7) 02/22/25 18: Ur Specific [place] 1.014 (1.005-1.030) 02/22/25 18: Urine Protein Trace (Negative) A 02/22/25 18: Urine Glucose (UA) Negative (Normal) 02/22/25 18: Urine Ketones Negative (Negative) 02/22/25 18: Urine Blood Negative (Negative) 02/22/25 18: Urine Nitrate Negative (Negative) 02/22/25 18: Urine Bilirubin Negative (Negative) 02/22/25 18: Urine Urobilinogen 0.2 mg/dL (Negative) 02/22/25 18: Ur Leukocyte Esterase Negative (Negative) 02/22/25 18: Urine RBC 0-2 /hpf (0-2) 02/22/25 18: Urine WBC 0-5 /hpf (0-5) 02/22/25 18:27 Ur Squamous Epith Cells 0-5 /hpf (0-5) 02/22/25 18:27 Amorphous Sediment Not Reportable 02/22/25 18:27 Urine Bacteria None seen /hpf (NONE) 02/22/25 18:27 Hyaline Casts 0.81 /lpf 02/22/25 18:27 All radiology interpretation(s) finalized by discharge Discharge Plan Discharge Patient Disposition: Home Clinical Impression: Hypertension Constipation Qualifiers: Constipation type: slow transit constipation Qualified Code(s): K59.01 - Slow transit constipation Condition: Stable Prescriptions: New lactulose 10 gram/15 mL solution 20 g PO TID Qty: 1200 0RF No Action (DME) diabetic shoes with 3 inserts See Rx Instructions .Route .MEDSUPPLY Qty: 1 0RF Rx Instructions: As directed to the shoe charity losartan 100 mg tablet 100 mg PO DAILY Qty: 30 5RF methadone 40 mg tablet,soluble 100 mg PO DAILY loratadine 10 mg tablet 10 mg PO DAILY PRN (Reason: cough/PND) Qty: 30 0RF paliperidone [Invega] 3 mg tablet extended release 24hr 3 mg PO DAILY Qty: 7 6RF Rx Instructions: Take one tablet daily week prior to invega injection albuterol sulfate [Ventolin HFA] 90 mcg/actuation HFA aerosol inhaler 2 puff inhalation QID PRN (Reason: shortness of breath or wheezing) Qty: 8.5 0RF Invega Sustenna 234 mg/1.5 mL syringe 234 mg IM Q30D Qty: 1.5 12RF Rx Instructions: Monthly injection amoxicillin-pot clavulanate 875-125 mg tablet 1 tab PO BID Qty: 14 0RF ondansetron HCl 4 mg tablet 4 mg PO Q8H PRN (Reason: nausea and vomiting) Qty: 10 0RF budesonide-formoterol [Symbicort] 160-4.5 mcg/actuation HFA aerosol inhaler 2 puff INHALATION Q12H Qty: 10.2 11RF metformin 500 mg tablet 500 mg PO DAILY Qty: 90 3RF testosterone cypionate [Depo-Testosterone] 200 mg/mL oil 200 mg SUBCUT Q14D Qty: 1 5RF pregabalin 150 mg capsule 150 mg PO BID Qty: 60 5RF hydrocortisone [Proctosol HC] 2.5 % cream with perineal applicator 1 applic ME BID PRN (Reason: hemorrhoids) Qty: 30 0RF lactulose 10 gram/15 mL solution 10 g PO BID Qty: 237 0RF polyethylene glycol 3350 [Miralax] 17 gram powder in packet 17 g PO DAILY PRN (Reason: constipation) Qty: 14 0RF atorvastatin 40 mg tablet 40 mg PO DAILY Rx Instructions: TAKE 1 TABLET BY MOUTH DAILY magnesium citrate Solution 296 ml PO ONCE Qty: 296 0RF polyethylene glycol 3350 [Miralax] 17 gram/dose powder 17 g PO DAILY Qty: 510 0RF Rx Instructions: Take 1-2 scoops daily for the next 3 months to keep stools soft glycerin (adult) Suppository 1 supp ME DAILY PRN (Reason: constipation) Qty: 12 0RF Discharge Orders: Discharge ED (Routine); Ordered 02/22/25 Ordered By: Adan Bhatia Patient Instructions: Constipation (ED), Abdominal Pain (ED), Hypertension (ED), Opioid Safety, Pain Management, Patient Portal & Cornelius Instructions Activity Restrictions/Additional Instructions: Medication as directed. You may reduce frequency of medication once bowel movements are regular and soft. Return for fever, vomiting liquids, other concerning symptoms. Call your doctor Monday for a follow-up appointment. Further outpatient studies may be needed. You were quite hypertensive here. Check your blood pressure twice daily, to ensure your blood pressure is controlled. Report numbers to your doctor next week. Print Language: Turkmen Coding Level of Care Code ED Medical Territory Manager for Dai Arellano
[2025-02-22 18:55] LABS: Add Urine Microscopic? YES
--- NOTE | 2025-02-22 19:00 | CTR_ITS ---
PROCEDURE INFORMATION: Exam: CT Abdomen And Pelvis Without Contrast Exam date and time: 02/22/2025 7:12 PM Age: 49 years old Clinical indication: Abdominal pain; Localized; Left lower quadrant (llq); Prior surgery; Surgery date: 6+ months; Surgery type: Hernia repair; C/O llq pain; Additional info: Left lower quadrant pain TECHNIQUE: Imaging protocol: Computed tomography of the abdomen and pelvis without contrast. Radiation optimization: All CT scans at this facility use at least one of these dose optimization techniques: automated exposure control; mA and/or kV adjustment per patient size (includes targeted exams where dose is matched to clinical indication); or iterative reconstruction. COMPARISON: CT abdomen pelvis wo con [id number] 09/30/2024 10:24 PM RADIATION DOSE METRICS: Total DLP (mGy-cm): 743.09 FINDINGS: Lungs: Partially visualized lung bases are clear. Visualized chest includes: No abnormal findings. Liver: The liver is normal in size. There is no focal lesion. Gallbladder and biliary ducts: Normal. No calcified stones. No ductal dilation. Pancreas: There are pancreatic calcifications consistent with chronic pancreatitis. There is no evidence for pancreatic inflammatory change. Spleen: Normal. No splenomegaly. Adrenal glands: Normal. No mass. Kidneys and ureters: There is no evidence for hydronephrosis or genitourinary tract calculus. There is a 2 cm left midpole renal cyst. Stomach and bowel: There is sigmoid diverticulosis. There is no evidence for acute diverticulitis. There is no evidence for bowel obstruction. No bowel wall thickening is seen. Appendix: No evidence of appendicitis. Intraperitoneal space: Unremarkable. No free air. No significant fluid collection. Vasculature: Unremarkable. No abdominal aortic aneurysm. Lymph nodes: Unremarkable. No enlarged lymph nodes. Urinary bladder: Unremarkable as visualized. Reproductive: Unremarkable as visualized. Bones/joints: Unremarkable. No acute fracture. Soft tissues: Unremarkable. CT/CT abdomen pelvis wo con [id number] IMPRESSION: 1. No acute intra-abdominal or pelvic pathology. 2. Sigmoid diverticulosis. No evidence for acute diverticulitis. 3. Small left renal cyst. COMMENTS: Consistent with the [place] [employer]'s Incidental Findings Committee white paper (J Am Yani Radiol 2018): Any incidental renal lesion less than 1 cm or classified as too small to characterize, or any incidental cystic renal lesion characterized as simple-appearing, is likely benign. No follow-up imaging is recommended for these lesions per consensus recommendations based on imaging criteria.
[2025-02-22 19:09] LABS: Lactic Sepsis W/Reflex 0.8 mmol/L (0.5-2.2)
[2025-02-22 19:10] LABS: Alanine Aminotransferase 14 U/L (0-41); Albumin Level 3.9 g/dL (3.5-5.2); Alkaline Phosphatase 115 U/L (40-130); Anion Gap 14.5 (5-19); Aspartate Amino Transferase 16 U/L (0-40); Blood Urea Nitrogen 19 mg/dL (6-20); Calcium 8.8 mg/dL (8.5-10.5); Carbon Dioxide 27 mmol/L (22-29); Chloride 99 mmol/L (98-107); Globulin 2.7 g/dL (1.3-4.6); Glucose 98 mg/dL (65-115); Lipase 26 U/L (13-60); Osmolality Calculated 284 mOsm/kg (285-295); Potassium 4.5 mmol/L (3.5-5.1); Sodium 136 mmol/L (136-145); Total Protein 6.6 g/dL (6.6-8.7)
[2025-02-22] MEDS: ondansetron 2 mg/ML SDV 2 mL 4 MG IVP (19:33)
[2025-02-22] MEDS: labetalol 5 mg/mL SDV 20mL 20 MG IVP (20:26)
== END 2025-02-22 21:11 | disposition home or self-care (01) ==
PROVIDERS: Emergency Provider Emergency Medicine
DX: K59.01 Slow transit constipation (principal); I10 Essential (primary) hypertension; Z79.84 Long term (current) use of oral hypoglycemic drugs; J44.9 Chronic obstructive pulmonary disease, unspecified; E78.5 Hyperlipidemia, unspecified; E11.9 Type 2 diabetes mellitus without complications
CPT/HCPCS: 36415; 74176; 80053; 81001; 83605; 83690; 85025; 86140; 96361; 96374; 96375; 99285; J2405; J3490; J7030; J9999

== ENCOUNTER 2025-02-25 16:53 | Emergency (ER) | payer MEDICAID, SELFPAY ==
[2023-09-20 10:55] VITALS: BP 152/82; BMI 30.7
--- NOTE | 2025-02-25 17:14 | ECG_ITS ---
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 Measurements Intervals [place]ams Rate: 68 P: 42 PA: 146 QRS: 11 QRSD: 95 T: 60 QT: 388 QTc: 415 Interpretive Statements SINUS RHYTHM Compared to ECG 10/07/2024 11:50:21 Sinus bradycardia no longer present Myocardial infarct finding no longer present Electronically Signed On 02-27-2025 18:00:06 [employer] by Laney Riley M.D. [email or web address]
--- NOTE | 2025-02-25 17:16 | XRR_ITS ---
PROCEDURE INFORMATION: Exam: XR Chest Exam date and time: 02/25/2025 5:23 PM Age: 49 years old Clinical indication: Other: HTN dizzy; Additional info: High bp/dizzy TECHNIQUE: Imaging protocol: Radiologic exam of the chest. Views: 1 view. COMPARISON: CR XR chest 1V portable [id number] 10/07/2024 9:42 AM FINDINGS: Lungs: Unremarkable. No consolidation. Pleural spaces: Unremarkable. No pleural effusion. No pneumothorax. Heart/Mediastinum: Unremarkable. No cardiomegaly. Bones/joints: Unremarkable. XR/XR chest 1V portable [id number] IMPRESSION: No acute findings.
[2025-02-25 17:42] VITALS: BP 144/84; PULSE 69; RESP 18; TEMP 36.8; O2SAT 100
--- NOTE | 2025-02-25 17:46 | PC.NURSE ---
called for patient numerous times for triage with no answer-- patient presented to triage at [id number]
[2025-02-25 18:07] LABS: Hematocrit 46.7 % (37-53); Hemoglobin 15.00 g/dL (11.27-16.99); Mean Corpuscular HGB Conc 32.1 g/dL (30-55); Mean Corpuscular Hemoglobin 28.3 pg (27-33); Mean Corpuscular Volume 88.1 fl (82-101); Nucleated Red Blood Cells % 0 %; Platelet Count 294 10^3/cmm (157-399); Red Blood Count 5.30 10^6/uL (3.85-5.65); White Blood Count 9.50 10^3/uL (3.29-11.43)
[2025-02-25 18:30] LABS: Alanine Aminotransferase 13 U/L (0-41); Albumin Level 4.2 g/dL (3.5-5.2); Alkaline Phosphatase 117 U/L (40-130); Anion Gap 16.1 (5-19); Aspartate Amino Transferase 16 U/L (0-40); Blood Urea Nitrogen 16 mg/dL (6-20); Calcium 9.5 mg/dL (8.5-10.5); Carbon Dioxide 27 mmol/L (22-29); Chloride 98 mmol/L (98-107); Globulin 3.4 g/dL (1.3-4.6); Glucose 84 mg/dL (65-115); Osmolality Calculated 282 mOsm/kg (285-295); Potassium 5.1 mmol/L (3.5-5.1); Sodium 136 mmol/L (136-145); Total Protein 7.6 g/dL (6.6-8.7)
--- NOTE | 2025-02-25 19:34 | W.ED.CHESTPA ---
HPI - Chest Pain General: Chief Complaint: Chest Pain Stated Complaint: High BP Dizzy Time Seen by Provider: 02/25/25 18:59 History of Present Illness: 49-year-old male presents emergency room complaining of chest pain and abdominal pain. He says a history of constipation which took a large amount of laxatives to try to relieve it. More complaining of the abdominal discomfort. He has not had any fever sweats chills no dysuria urgency or frequency. He is here a couple of days ago and had a CT done and labs which were unremarkable Associated symptoms: Reports abdominal pain; Deny dyspnea or fever(s) Related Data Home Medications ?Medication ?Instructions ?Recorded ?Confirmed atorvastatin 40 mg tablet 40 mg PO DAILY 09/12/23 01/18/25 methadone 40 mg soluble tablet 100 mg PO DAILY 04/10/24 01/18/25 Previous Rx's ?Medication ?Instructions ?Recorded diabetic shoes with 3 inserts #1 ea 12/19/22 budesonide-formoterol HFA 160 2 puff inhalation Q12H #10.2 grams 05/24/23 mcg-4.5 mcg/actuation aerosol inhaler (Symbicort) loratadine 10 mg tablet 10 mg PO DAILY PRN cough/PND #30 06/07/23 tabs paliperidone 3 mg tablet,extended 3 mg PO DAILY #7 tabs 07/20/23 release 24 hr (Invega) losartan 100 mg tablet 100 mg PO DAILY high blood 09/19/23 pressure #30 tabs metformin 500 mg tablet 500 mg PO DAILY #90 tabs 09/28/23 Held on 02/25/25. Instructions: Resume on 03/03/25. testosterone cypionate 200 mg/mL 200 mg SUBCUT Q14D #1 mL 11/09/23 intramuscular oil (Depo-Testosterone) albuterol sulfate 90 mcg/actuation 2 puff inhalation QID PRN 02/03/24 aerosol inhaler (Ventolin HFA) shortness of breath or wheezing #8.5 grams hydrocortisone 2.5 % topical cream 1 applic UT BID PRN hemorrhoids 05/02/24 with perineal applicator #30 grams (Proctosol HC) polyethylene glycol 3350 17 gram 17 g PO DAILY PRN constipation #14 05/15/24 oral powder packet (Miralax) ea paliperidone palmitate 234 mg/1.5 234 mg (1.5 mL) IM Q30D #1.5 mL 05/20/24 mL intramuscular syringe (Invega Sustenna) pregabalin 150 mg capsule 150 mg PO BID #60 caps 05/23/24 glycerin (adult) 1 supp UT DAILY PRN constipation 09/30/24 #12 ea polyethylene glycol 3350 17 17 g PO DAILY #510 grams 09/30/24 gram/dose oral powder (Miralax) amoxicillin 875 mg-potassium 1 tab PO BID #14 tabs 01/18/25 clavulanate 125 mg tablet ondansetron HCl 4 mg tablet 4 mg PO Q8H PRN nausea and 01/18/25 vomiting #10 tabs Allergies Allergy/AdvReac Type Severity Reaction Status Date / Time ibuprofen Allergy unknown Verified 02/22/25 18:01 Iodinated Contrast Media Allergy ALGY-Difficulty Verified 02/22/25 18:01 Breathing meperidine (From Demerol) Allergy unknown Verified 02/22/25 18:01 Review of Systems Const: Denies: fever(s) or chills Card: Reports: chest pain Resp: Denies: dyspnea GI: Reports: abdominal pain : Denies: dysuria, urinary frequency or urinary urgency Musc: Denies: neck pain or back pain Skin/Breast: Denies: rash PFSH ED PFSH: Medical History Generalized anxiety disorder Cannabis dependence, uncomplicated Elevated blood pressure reading in office with diagnosis of hypertension Axillary adenopathy Family history of colon cancer On combination antipsychotic drug therapy Overdose of antipsychotic Constipation Rectal bleeding Peripheral neuropathy Positive skin test for tuberculosis Opioid dependence Polysubstance (excluding opioids) dependence, daily use tobacco, benzo diazepam, cannabis, opioids, amphetamines and other stimulants COPD (chronic obstructive pulmonary disease) Dyslipidemia associated with type 2 diabetes mellitus Chronic pain after traumatic injury Osteoarthritis involving multiple joints on both sides of body Diabetes mellitus type 2 in obese Pituitary abnormality Adenoma on CT Maxillary fracture, left side, initial encounter for closed fracture Psychiatric care Major depressive disorder, recurrent, moderate Benzodiazepine use agreement exists Low testosterone level in male Essential (primary) hypertension Hernia Schizoaffective disorder, depressive type Surgical History S/P aspiration of joint History of surgery on right wrist Umbilical hernia Family History Mother CAD (coronary artery disease) Hypertension Denies family history of Anesthesia complication Bleeding disorder Social History Smoking and tobacco/nicotine status: never used tobacco/nicotine Second hand smoke exposure: Yes Alcohol intake: never Substance/Drug Use: former Date of last use: 4 Months Former substance use details: Meth. Physical Exam Const: GENERAL APPEARANCE: cooperative ORIENTATION/CONSCIOUSNESS: Yes awake, Yes oriented to person, Yes oriented to place and Yes oriented to time HENMT: COMMON NORMALS: normocephalic, atraumatic and hearing grossly normal bilaterally HEAD & SCALP: normocephalic and atraumatic Resp: COMMON NORMALS: normal respiratory effort, No retractions, No use of accessory muscles and clear to auscultation bilaterally AUSCULTATION: clear to auscultation bilaterally Cardio: COMMON NORMALS: regular rate, regular rhythm and No murmurs present (Cardio) RATE: regular rate RHYTHM: regular rhythm GI: COMMON NORMALS: Soft to palpation and No hepatosplenomegaly present AUSCULTATION: Yes normoactive bowel sounds PALPATION: Yes Soft to palpation, No Tenderness to palpation present (GI), No Guarding due to palpation present (GI) and Yes No hepatosplenomegaly present Extremity: COMMON NORMALS: normal to inspection, capillary refill normal, no clubbing, cyanosis or edema, no calf tenderness and no pedal edema Neuro: SENSORIUM/ORIENTATION: Yes oriented to person, Yes oriented to place and Yes oriented to time Skin: COMMON NORMALS: no rashes or lesions noted GENERAL SKIN EXAM: no rashes or lesions noted Course Vital Signs: Vital signs: Vital Signs Temperature 98.3 F 02/25/25 17:42 Pulse Rate 60 02/25/25 22:05 Respiratory Rate 16 02/25/25 22:05 Blood Pressure 157/102 02/25/25 22:05 Pulse Oximetry 96 02/25/25 22:05 Oxygen Delivery Me thod Room Air 02/25/25 21:44 MDM - Chest Pain Medical Decision Making Medical decision making Social determinants: None I reviewed the patient's medical record. I reviewed the patient's current home meds. Alternate historians: None Differential diagnosis: Reflux disease, acute coronary syndrome, colitis, pancreatitis, peptic ulcer disease Lab Review: Labs reviewed as found in the chart CBC unremarkable with a normal white count normal hemoglobin chemistries shows a creatinine of 1.5 slightly elevated from earlier this year. Liver functions are normal lipase normal troponins trended negative. Urine is also unremarkable. Imaging: show creatinine of 1.5 chest x-ray hyperinflation no cardiomegaly no effusions no infiltrates Assessment of risk Level of risk: Moderate Hospitalization considerations: Consider sedation for hospitalization pending workup particularly evaluation for acute coronary syndrome Reexamination: No further chest pain complaining mostly of epigastric left upper quadrant pain Assessment and plan: Cardiac enzymes EKG unremarkable. Heart score of 1. Patient complaining about significant constipation may cause some of his abdominal pain. At this point any can be discharged home he should continue to take baby aspirin daily. Recommend that he hold his metformin because of his creatinine being progressively elevating over the last month. Additionally recommend he hold the lactulose and magnesium citrate. Follow-up with his primary care doctor return if is further problems. Lab Data 02/25/25 17:58 02/25/25 17:58 Radiology Impressions Chest X-Ray 02/25/25 17:16 IMPRESSION: No acute findings. Laboratory Results WBC 9.50 10^3/uL (3.29-11.43) 02/25/25 17:58 RBC 5.30 10^6/uL (3.85-5.65) 02/25/25 17:58 Hgb 15.00 g/dL (11.27-16.99) 02/25/25 17:58 Hct 46.7 % (37-53) 02/25/25 17:58 MCV 88.1 fl (82-101) 02/25/25 17:58 MCH 28.3 pg (27-33) 02/25/25 17:58 MCHC 32.1 g/dL (30-55) 02/25/25 17:58 RDW 13.2 % (12.1-15.1) 02/25/25 17:58 Plt Count 294 10^3/cmm (157-399) 02/25/25 17:58 MPV 11.0 fL (7.4-10.4) H 02/25/25 17:58 Neut % (Auto) 58.8 % 02/25/25 17:58 Lymph % (Auto) 28.3 % 02/25/25 17:58 Ray % (Auto) 9.3 % 02/25/25 17:58 Eos % (Auto) 1.8 % 02/25/25 17:58 Baso % (Auto) 1.5 % 02/25/25 17:58 Neut # (Auto) 5.59 10^3/uL (1.8-7.7) 02/25/25 17:58 Lymph # (Auto) 2.7 10^3/uL (0.8-4.8) 02/25/25 17:58 Ray # (Auto) 0.9 10^3/uL (0.2-0.9) 02/25/25 17:58 Eos # (Auto) 0.2 10^3/uL (0.0-0.8) 02/25/25 17:58 Baso # (Auto) 0.1 10^3/uL (0.0-0.1) 02/25/25 17:58 Nucleated RBC % (auto) 0 % 02/25/25 17:58 Nucleated RBCs # 0.0 /100WBC 02/25/25 17:58 Sodium 136 mmol/L (136-145) 02/25/25 17:58 Potassium 5.1 mmol/L (3.5-5.1) 02/25/25 17:58 Chloride 98 mmol/L (98-107) 02/25/25 17:58 Carbon Dioxide 27 mmol/L (22-29) 02/25/25 17:58 Anion Gap 16.1 (5-19) 02/25/25 17:58 BUN 16 mg/dL (6-20) 02/25/25 17:58 Creatinine 1.5 mg/dL (0.7-1.2) H 02/25/25 17:58 GFR Calculation 49.3 mL/min (90-130) L 02/25/25 17:58 Glucose 84 mg/dL (65-115) 02/25/25 17:58 Calculated Osmolality 282 mOsm/kg (285-295) L 02/25/25 17:58 Calcium 9.5 mg/dL (8.5-10.5) 02/25/25 17:58 Total Bilirubin 0.2 mg/dL (0.15-1.2) 02/25/25 17:58 AST 16 U/L (0-40) 02/25/25 17:58 ALT 13 U/L (0-41) 02/25/25 17:58 Alkaline Phosphatase 117 U/L (40-130) 02/25/25 17:58 Troponin T Baseline 9 ng/L (0-15) 02/25/25 17:58 Troponin T 60 Minute 9.20 ng/L (0-15) 02/25/25 20:34 Delta Troponin T 0.20 ABS# (0-10) 02/25/25 20:34 Total Protein 7.6 g/dL (6.6-8.7) 02/25/25 17:58 Albumin 4.2 g/dL (3.5-5.2) 02/25/25 17:58 Globulin 3.4 g/dL (1.3-4.6) 02/25/25 17:58 Urine Color Yellow (Yellow) 02/25/25 20:42 Urine Appearance Clear (CLEAR) 02/25/25 20:42 Urine pH 8.0 (5-7) A 02/25/25 20:42 Ur Specific [place] 1.006 (1.005-1.030) 02/25/25 20:42 Urine Protein Negative (Negative) 02/25/25 20:42 Urine Glucose (UA) Negative (Normal) 02/25/25 20:42 Urine Ketones Negative (Negative) 02/25/25 20:42 Urine Blood Negative (Negative) 02/25/25 20:42 Urine Nitrate Negative (Negative) 02/25/25 20:42 Urine Bilirubin Negative (Negative) 02/25/25 20:42 Urine Urobilinogen 0.2 mg/dL (Negative) 02/25/25 20:42 Ur Leukocyte Esterase Negative (Negative) 02/25/25 20:42 Urine RBC 0-2 /hpf (0-2) 02/25/25 20:42 Urine WBC 0-5 /hpf (0-5) 02/25/25 20:42 Ur Squamous Epith Cells 0-5 /hpf (0-5) 02/25/25 20:42 Amorphous Sediment Not Reportable 02/25/25 20:42 Urine Bacteria None seen /hpf (NONE) 02/25/25 20:42 Hyaline Casts 0-4 /lpf H 02/25/25 20:42 All radiology interpretation(s) finalized by discharge EKG Data EKG 1: I personally reviewed and interpreted this EKG as follows: Interpretation: EKG 02/25/2025 1714 sinus rhythm rate of 68. UT interval 146 QTc [address] changes noted. No STEMI EKG 2: I personally reviewed and interpreted this EKG as follows: Interpretation: EKG 02/25/2025 2157 sinus rhythm rate of 63 UT interval 151 QTc [address] changes noted. No significant change from EKG done earlier same day Discharge Plan Discharge Patient Disposition: Home Clinical Impression: Atypical chest pain, Abdominal pain Constipation Qualifiers: Constipation type: slow transit constipation Qualified Code(s): K59.01 - Slow transit constipation Condition: Stable Prescriptions: Held metformin 500 mg tablet 500 mg PO DAILY Qty: 90 3RF Hold Instructions: Resume on 03/03/25. Discontinued lactulose 10 gram/15 mL solution 10 g PO BID Qty: 237 0RF magnesium citrate Solution 296 ml PO ONCE Qty: 296 0RF lactulose 10 gram/15 mL solution 20 g PO TID Qty: 1200 0RF No Action (DME) diabetic shoes with 3 inserts See Rx Instructions .Route .MEDSUPPLY Qty: 1 0RF Rx Instructions: As directed to the shoe gujens losartan 100 mg tablet 100 mg PO DAILY Qty: 30 5RF methadone 40 mg tablet,soluble 100 mg PO DAILY loratadine 10 mg tablet 10 mg PO DAILY PRN (Reason: cough/PND) Qty: 30 0RF paliperidone [Invega] 3 mg tablet extended release 24hr 3 mg PO DAILY Qty: 7 6RF Rx Instructions: Take one tablet daily week prior to invega injection albuterol sulfate [Ventolin HFA] 90 mcg/actuation HFA aerosol inhaler 2 puff inhalation QID PRN (Reason: shortness of breath or wheezing) Qty: 8.5 0RF Invega Sustenna 234 mg/1.5 mL syringe 234 mg IM Q30D Qty: 1.5 12RF Rx Instructions: Monthly injection amoxicillin-pot clavulanate 875-125 mg tablet 1 tab PO BID Qty: 14 0RF ondansetron HCl 4 mg tablet 4 mg PO Q8H PRN (Reason: nausea and vomiting) Qty: 10 0RF budesonide-formoterol [Symbicort] 160-4.5 mcg/actuation HFA aerosol inhaler 2 puff INHALATION Q12H Qty: 10.2 11RF testosterone cypionate [Depo-Testosterone] 200 mg/mL oil 200 mg SUBCUT Q14D Qty: 1 5RF pregabalin 150 mg capsule 150 mg PO BID Qty: 60 5RF hydrocortisone [Proctosol HC] 2.5 % cream with perineal applicator 1 applic UT BID PRN (Reason: hemorrhoids) Qty: 30 0RF polyethylene glycol 3350 [Miralax] 17 gram powder in packet 17 g PO DAILY PRN (Reason: constipation) Qty: 14 0RF atorvastatin 40 mg tablet 40 mg PO DAILY Rx Instructions: TAKE 1 TABLET BY MOUTH DAILY polyethylene glycol 3350 [Miralax] 17 gram/dose powder 17 g PO DAILY Qty: 510 0RF Rx Instructions: Take 1-2 scoops daily for the next 3 months to keep stools soft glycerin (adult) Suppository 1 supp UT DAILY PRN (Reason: constipation) Qty: 12 0RF Discharge Orders: Discharge ED (Routine); Ordered 02/25/25 Ordered By: Troy Trammell Patient Instructions: Abdominal Pain (ED), Opioid Safety, Pain Management, Patient Portal & [place]elius Instructions Activity Restrictions/Additional Instructions: Thank you for choosing [facility] for your healthcare needs today. It is very important that you follow up as instructed or that you return to the Emergency Department should you have concerns or if your condition changes or worsens in any way. Emergency department visits are focused on emergent conditions, in some cases you may require further evaluation on an outpatient basis. You were seen in the emergency room with complaints of abdominal pain chest pain abdominal exam was benign. Creatinine was slightly elevated. Recommend that you stop the lactulose and hold your metformin.. Recommend that you hold on lactulose and also hold your metformin for 1 week. You should follow-up with your doctor in 3 to 5 days and recheck your kidney function. (Please note that included in your discharge packet is information concerning opioid safety and pain management. This information is given to all patients were discharged from the ER regardless of their discharge diagnosis or the medicines they usually take or are prescribed.) Print Language: Nepali Coding Level of Care Code ED [employer] for Chg Fwd Heart Score HEART Score Components History: Slightly Suspicous EKG: Normal Age: 45-64 yrs Risk Factors: No Risk Factors Known Troponin: Baseline Trop <16 ng/L HEART Score RESULT HEART Score: 1
[2025-02-25 19:48] VITALS: BP 153/95; PULSE 61; RESP 16; O2SAT 96
[2025-02-25 20:10] VITALS: BP 164/92; PULSE 63; RESP 16; O2SAT 95
--- NOTE | 2025-02-25 20:33 | ECG_ITS ---
[facility] Test Date: 2025-02-25 Pat Name: Dino Terrazas Department: Room: Gender: Male Manager Local: : 1975 Requested By: Troy Aleman Order Number: [id number] Aurelio MD: Laney Riley M.D. Measurements Intervals [place] Rate: 63 P: 53 IA: 151 QRS: 10 QRSD: 92 T: 61 QT: 412 QTc: 425 Interpretive Statements SINUS RHYTHM Compared to ECG 02/25/2025 17:14:56 No significant changes Electronically Signed On 02-27-2025 17:59:20 COMMERCIAL DEVELOPMENT MANAGER by Laney Riley M.D. [email or web address]
[2025-02-25 21:04] VITALS: BP 127/81; PULSE 60; RESP 16; O2SAT 94
[2025-02-25 21:04] LABS: Glucose Urine UA Negative (Normal); Nitrate Urine Negative (Negative); Specific Gravity, Urine 1.006 (1.005-1.030)
[2025-02-25 21:09] LABS: Add Urine Microscopic? YES
[2025-02-25 21:36] LABS: Troponin(5th) Baseline 9 ng/L (0-15)
[2025-02-25 21:44] VITALS: BP 157/102; PULSE 66; RESP 20; O2SAT 98
[2025-02-25 22:05] VITALS: BP 157/102; PULSE 60; RESP 16; O2SAT 96
--- NOTE | 2025-02-25 22:06 | PC.NURSE ---
Pt refused to sign DC paperwork DT being mad about DC. Pt was cussing and yelling at this nurse so this nurse called security. Pt was escorted out by JR in security.
== END 2025-02-25 22:07 | disposition home or self-care (01) ==
PROVIDERS: Physician Assistant; Emergency Provider Family Medicine
DX: R07.89 Other chest pain (principal); R10.9 Unspecified abdominal pain; K59.01 Slow transit constipation; J44.9 Chronic obstructive pulmonary disease, unspecified; E78.5 Hyperlipidemia, unspecified; E11.42 Type 2 diabetes mellitus with diabetic polyneuropathy; I10 Essential (primary) hypertension
CPT/HCPCS: 36415; 71045; 80053; 81001; 84484; 85025; 93005; 99285